=== PATIENT | female | born 1955 | race Caucasian/White ===

== ENCOUNTER 2017-05-21 08:56 | Outpatient (POV) | payer OTHER, SELFPAY | END 2017-05-21 15:19 | disposition home or self-care (01) | PROVIDERS: PCP Podiatrist; Visit Provider Podiatrist | DX: L30.9 Dermatitis, unspecified (principal); L85.3 Xerosis cutis; M77.42 Metatarsalgia, left foot; M77.41 Metatarsalgia, right foot; B35.1 Tinea unguium; L84 Corns and callosities | CPT/HCPCS: 99213 ==

== ENCOUNTER → 2018-03-05 11:26 | Outpatient (CLI) | payer SELFPAY ==
[2018-03-05 12:57] LABS: Alanine Aminotransferase 20 U/L (12-78); Albumin Level 3.5 gm/dL (3.4-5.0); Albumin/Globulin Ratio 0.9 (1.1-1.8); Alkaline Phosphatase 175 U/L (46-116); Anion Gap 13.4 mEq/L (5-15); Aspartate Amino Transferase 14 U/L (15-37); Bilirubin,Total 0.4 mg/dL (0.2-1.0); Blood Urea Nitrogen 20 mg/dL (7-18); Calcium 9.4 mg/dL (8.5-10.1); Carbon Dioxide 28 mmol/L (21.0-32.0); Chloride 110 mmol/L (98-107); Chol/HDL Ratio 3.5 (1-3.5); Cholesterol 144 mg/dL (140-200); Creatinine,Serum 0.79 mg/dL (0.55-1.02); Estimated Glomerular Filt Rate 74 ml/min (>60); GFR (African American) 89 ML/MIN (>60); Globulin 3.8 gm/dl (1.3-3.2); Glucose 100 mg/dL (74-106); HDL Cholesterol 41 mg/dL (29-89); LDL Cholesterol 83 mg/dL (0-130); Potassium 4.4 mmoL/L (3.5-5.1); Sodium 147 mmol/L (136-145); Thyroid Stimulating Hormone 0.87 uIU/ml (0.358-3.740); Total Protein,Serum 7.3 gm/dL (6.4-8.2); Triglycerides 98 mg/dL (30-200); VLDL Cholesterol 20 mg/dL (0-40)
== END ==
PROVIDERS: PCP Internal Medicine Adolescent Medicine; Visit Provider Internal Medicine Adolescent Medicine
DX: E78.5 Hyperlipidemia, unspecified (principal); E03.9 Hypothyroidism, unspecified
CPT/HCPCS: 36415; 80053; 80061; 84443

== ENCOUNTER → 2019-01-05 13:45 | Outpatient (CLI) | payer SELFPAY | PROVIDERS: PCP Internal Medicine Adolescent Medicine; Visit Provider Internal Medicine Adolescent Medicine | DX: G47.30 Sleep apnea, unspecified (principal); R40.0 Somnolence; R06.83 Snoring | CPT/HCPCS: 95806 ==

== ENCOUNTER → 2019-02-05 11:50 | Outpatient (CLI) | payer SELFPAY ==
[2019-02-05 14:57] LABS: Free T4 (Free Thyroxine) 1.21 ng/dl (0.76-1.46); Thyroid Stimulating Hormone 0.07 uIU/ml (0.358-3.740)
[2019-02-06 18:06] LABS: Thyroid Peroxidase Antibodies 33 IU/mL (0-34)
[2019-02-08 16:35] LABS: Thyroid Stimulating Immunoglob <0.10 IU/L (0.00-0.55)
== END ==
PROVIDERS: Visit Provider Otolaryngology
DX: E03.9 Hypothyroidism, unspecified (principal)
CPT/HCPCS: 36415; 84439; 84443; 84445; 86376

== ENCOUNTER → 2019-07-31 12:56 | Outpatient (CLI) | payer SELFPAY ==
[2019-07-31 14:59] LABS: Free T4 (Free Thyroxine) 1.19 ng/dl (0.76-1.46); Thyroid Stimulating Hormone 2.75 uIU/ml (0.358-3.740)
== END ==
PROVIDERS: Visit Provider Otolaryngology
DX: E03.9 Hypothyroidism, unspecified (principal)
CPT/HCPCS: 36415; 84439; 84443

== ENCOUNTER → 2019-12-30 07:57 | Outpatient (CLI) | payer MEDICARE, OTHER, SELFPAY ==
--- NOTE | 2019-12-30 08:04 | XR_ITS ---
PROCEDURE: XR DEXA AXIAL SKELETON CLINICAL HISTORY: RT MEDICAL EXAM COMPARISON: No exams were available for comparison FINDINGS: The right hip BMD is 0.653 with a t-score of -1.8. The left hip BMD is 0.687 with a t-score of -1.5. The lumbar spine BMD is 0.991 with a t-score of -0.5. IMPRESSION: This patient is considered osteopenic according to the World Health Organization criteria. Bone density is between 10 and 25 percent below young normal . Fracture risk is moderate. Treatment is advised. Based on these results of follow-up exam is recommended in 2 years Dictated by: Tung Govea MD 12/30/2019 21:14 Electronically signed by Tung Govea MD in [place] 12/31/2019 14:14
--- NOTE | 2019-12-30 08:08 | CT_ITS ---
PROCEDURE: CT LUNG SCREENING CLINICAL INDICATION: HX OF NICOTINE DEPENDENCE Fifty pack-year smoking history, asymptomatic for lung cancer COMPARISON: [facility] CT CHEST W/WO CONTRAST from 12/27/2015 TECHNIQUE: The exam was performed on a GE Light Speed [address] scanner using 2.90 mGy CTDI. A low dose helical CT CHEST was performed on a multi-detector scanner. All CT scans at the facility use one or more dose reduction, viz: automated exposure control, ma/kV adjustment per patient size (including targeted exams where dose is matched to indication, i.e. head), or iterative reconstruction technique. The LDCT was performed in a facility that meets the criteria for the screening program. Data regarding this exam was submitted to ACR which is an approved registry. The order for this exam indicates that it came as a result of a lung cancer screening counseling shard decision-making visit that included all the elements required of such a visit including smoking cessation. The radiologist interpreting this exam meets the CMS criteria for the LDCT lung cancer screening program. The exam is reported using the Lung-RADS classification scale and reported to the ACR registry. NOTE: This study was performed for the specific purposes of lung cancer screening and is not an alternative to diagnostic chest CT. RADIATION DOSE: CTDI vol(CT dose Index-volume) = 2.90mG DLP (Dose Length Product) = 96.64 mGcm Lung Rads Category: FINDINGS: COPD. Old granulomatous disease. Atelectatic changes are present in the lingula. No new nodules apparent. OTHER FINDINGS: Coronary artery calcification IMPRESSION: Lung rads category 2, benign Recommend annual LD CT Dictated by: Tung Govea MD 01/03/2020 12:48 Electronically signed by Tung Govea MD in [place] 01/03/2020 12:48
--- NOTE | 2019-12-30 08:10 | MM_ITS ---
PROCEDURE: MM DIG SCREENING MAMM BI W/CAD DIGITAL BREAST TOMOSYNTHESIS INCLUDED Patient Age:64Y CLINICAL INDICATION: Screening 64-year-old. No Hormones But No New Complaints. Or Surgical Excisional 1990 Biopsy Left Breast-Benign 1990. family History Maternal Grandmother Breast Cancer COMPARISON: [facility] DIGITAL MAMM-SCREEN BILATERAL from 04/18/2010 [facility] DIGITAL MAMM-SCREEN BILATERAL from 05/10/2011 [facility] DIGITAL MAMM-SCREEN BILATERAL from 08/28/2012 [facility] DIG MAMM-SCREEN KIM from 09/10/2013 [facility] DIG MAMM-DX KIM from 03/18/2014 [facility] DIG MAMM-SCREEN KIM from 06/08/2015 [facility] DIG MAMM-SCREEN KIM W/CAD from 09/19/2016 TECHNIQUE: Standard CC and MLO images were obtained. R2 CAD reviewed. Bilateral digital breast tomosynthesis included. FINDINGS: Minimal residual fibroglandular elements with moderate diffuse fatty involution through out. Residual fibroglandular Elements most evident towards anterior breast and upper outer quadrant. RIGHT BREAST: Fairly stable Minor Fibroglandular Elements Superior Right Breast Unchanged. However on final review note tiny ovoid 3.5 mm area of density best seen on the CC standard view at central breast likely towards the 11-12 o'clock position. Suspect probable tiny cyst which is has become apparent (this small density subsequent best seen on cc tomosynthesis slice 30-32; and MLO tomosynthesis slice 41/42) Suggest cc and 90 spot view here along with ultrasound of this tiny area to be cautious in this patient well known to us. Other areas appear stable of for example stable small Intramammary Node Posterior Margin Of Mlo Image Of Again Noted-stable LEFT BREAST: Stable No New Findings Of Significance. Minor Asymmetry Lateral Left Breast possibly Reflects Minor Scarring Bilateral Follow-up 1 Year Recommended. IMPRESSION: RIGHT BREAST. . Suggest ultrasound and spot views to further evaluate Subtle small 3.5 mm ovoid area at 11-12 o'clock position central breast. Possible small cyst -LEFT BREAST. No new areas of concern. Follow-up left mammogram 1 year BI-RAD Category: 0 Need Additional Imaging Evaluation FOLLOW-UP: IMM Immediate Follow-up Recommended Spot views and ultrasound right breast (A letter has been sent to the patient regarding results of the study.) Dictated by: Mick Britt MD 01/04/2020 12:16 Electronically signed by Mick Britt MD in [place] 01/04/2020 12:16
== END ==
PROVIDERS: PCP Internal Medicine Adolescent Medicine; Visit Provider Internal Medicine Adolescent Medicine
DX: Z78.0 Asymptomatic menopausal state (principal); Z87.891 Personal history of nicotine dependence; Z12.31 Encounter for screening mammogram for malignant neoplasm of breast
CPT/HCPCS: 77063; 77067; 77080

== ENCOUNTER → 2020-01-14 13:56 | Outpatient (CLI) | payer MEDICARE, OTHER, SELFPAY ==
--- NOTE | 2020-01-14 14:08 | MM_ITS ---
PROCEDURE: MM DIG MAMM DX UNILAT RT CAD Digital Breast Tomosynthesis Included CLINICAL INDICATION: ABN MAMM OF R BREAST COMPARISON: [facility] DIG MAMM-DX KIM from 03/18/2014 [facility] DIG MAMM-SCREEN KIM from 06/08/2015 [facility] DIG MAMM-SCREEN KIM W/CAD from 09/19/2016 MM DIG SCREENING MAMM BI W/CAD from 12/30/2019 US BREAST RT COMPLETE from 01/14/2020 TECHNIQUE: Spot-compression views along with right breast ultrasound FINDINGS: There is a well-circumscribed 3 mm nodule in the lateral aspect of the right breast at the 9 o'clock region. The margins appear well circumscribed and smooth. This may been present dating back to 03/18/2014 but slightly larger. Right breast ultrasound: No cyst or solid suspicious lesions evident. There is a 4 x 2 mm hyperechoic focus at 11 o'clock and may be due to small lipoma. IMPRESSION: Probably benign findings. Recommend six-month mammographic and sonographic follow-up BI-RAD Category: 3 Probably Benign Finding Short Term Follow-up FOLLOW-UP: 6M 6Month Follow-up (A letter has been sent to the patient regarding results of the study.) Dictated by: Tung Govea MD 01/15/2020 18:42 Electronically signed by Tung Govea MD in [place] 01/15/2020 18:42
== END ==
PROVIDERS: PCP Internal Medicine Adolescent Medicine; Visit Provider Internal Medicine Adolescent Medicine
DX: R92.8 Other abnormal and inconclusive findings on diagnostic imaging of breast (principal)
CPT/HCPCS: 76641; 77061; 77065; G0279

== ENCOUNTER → 2020-03-23 11:55 | Outpatient (CLI) | payer MEDICARE, OTHER, SELFPAY ==
[2020-03-23 12:52] LABS: Basophils # 0.1 K/mm3 (0-0.2); Basophils % 0.7 % (0.1-2.0); Eosinophils # 0.2 K/mm3 (0.0-0.4); Eosinophils % 2.4 % (0.1-12.0); Hematocrit 51.8 % (37.0-47.0); Hemoglobin 16.4 g/dL (12.2-16.2); Lymphocytes # 2.2 K/mm3 (0.7-4.5); Lymphocytes % 26.8 % (10-50); Mean Corpuscular HGB Conc 31.6 g/dL (31.8-35.4); Mean Corpuscular Hemoglobin 29.2 pg (27.0-31.2); Mean Corpuscular Volume 92.3 fl (81-99); Mean Platelet Volume 7.6 fl (7.4-10.4); Monocytes # 0.4 K/mm3 (0.1-1.0); Monocytes % 4.9 % (1.7-9.3); Neutrophils # 5.4 K/mm3 (1.8-7.8); Neutrophils % 65.2 % (37.0-80.0); Platelet Count 245 K/mm3 (142-424); Red Blood Count 5.61 M/mm3 (4.20-5.40); Red Cell Distribution Width 14.9 % (11.5-17.5); White Blood Count 8.2 K/mm3 (4.8-10.8)
[2020-03-23 15:16] LABS: Chloride 108 mmol/L (98-107); Potassium 4.6 mmoL/L (3.5-5.1); Sodium 143 mmol/L (136-145)
[2020-03-23 15:19] LABS: Alanine Aminotransferase 15 U/L (12-78); Albumin/Globulin Ratio 1.4 (1.1-1.8); Alkaline Phosphatase 137 U/L (38-126); Anion Gap 11.6 mEq/L (5-15); Aspartate Amino Transferase 26 U/L (14-36); Bilirubin,Total 0.5 mg/dl (0.2-1.3); Blood Urea Nitrogen 20 mg/dl (7-17); Calcium 9.4 mg/dl (8.4-10.2); Carbon Dioxide 28 mmol/L (22.0-30.0); Estimated Glomerular Filt Rate 84 ml/min (>60); GFR (African American) 102 ML/MIN (>60); Globulin 2.8 g/dL (1.3-3.2); Glucose 110 mg/dl (74-100); Total Protein,Serum 6.8 g/dl (6.3-8.2)
[2020-03-23 15:39] LABS: 25-OH Vitamin D, Total 34.4 ng/mL (30-100)
[2020-03-23 15:50] LABS: Thyroid Stimulating Hormone 0.21 uIU/mL (0.465-4.68)
== END ==
PROVIDERS: Visit Provider Internal Medicine Adolescent Medicine
DX: E03.9 Hypothyroidism, unspecified (principal); M85.89 Other specified disorders of bone density and structure, multiple sites
CPT/HCPCS: 36415; 80053; 82306; 84443; 85025

== ENCOUNTER → 2020-07-26 13:10 | Outpatient (CLI) | payer MEDICARE, OTHER, SELFPAY ==
--- NOTE | 2020-07-26 13:36 | MM_ITS ---
PROCEDURE: MM DIG MAMM DX UNILAT RT CAD Digital Breast Tomosynthesis Included CLINICAL INDICATION: ABN MAMM COMPARISON: MG [facility] DIG MAMM-SCREEN KIM W/CAD from 09/19/2016 MG MM DIG SCREENING MAMM BI W/CAD from 12/30/2019 MG MM DIG MAMM DX UNILAT RT CAD from 01/14/2020 TECHNIQUE: Standard CC and MLO images and 3D Tomosynthesis was obtained. R2 CAD reviewed. FINDINGS: The small well-circumscribed nodular lesion is stable and unchanged from the previous exam in certainly has benign features. No other abnormality is noted. Recommend the patient return to normal lyearly screening. IMPRESSION: Stable tiny benign-appearing nodular density BI-RAD Category: 2 Benign Finding(s) FOLLOW-UP: 6M 6Month Follow-up to return to normal yearly screening schedule (A letter has been sent to the patient regarding results of the study.) Dictated by: Dr. Yusef Naik MD 08/02/2020 13:12 Dr. Yusef Naik MD in [place] 08/02/2020 13:12
--- NOTE | 2020-07-26 13:37 | US_ITS ---
PROCEDURE: US BREAST RT COMPLETE CLINICAL INDICATION: ABN MAMM COMPARISON: US US BREAST RT COMPLETE from 01/14/2020 FINDINGS: Again noted is a small hypoechoic nodular lesion 11 o'clock position near the nipple with smooth borders and this is unchanged in size and appearance from the previous ultrasound exam and likely is a small lipoma. There is a normal appearing node in the axilla noted. No suspicious solid lesion is noted. IMPRESSION: Stable small hyperechoic nodular lesion and I feel no additional evaluation is indicated Dictated by: Dr. Yusef Naik MD 08/04/2020 07:50 Dr. Yusef Naik MD in [place] 08/04/2020 07:50
[2020-07-26 14:16] LABS: Free T4 (Free Thyroxine) 1.08 ng/dl (0.78-2.19)
[2020-07-26 14:30] LABS: Thyroid Stimulating Hormone 1.91 uIU/mL (0.465-4.68)
== END ==
PROVIDERS: Otolaryngology; PCP Internal Medicine Adolescent Medicine; Visit Provider Internal Medicine Adolescent Medicine
DX: E03.9 Hypothyroidism, unspecified (principal); R92.8 Other abnormal and inconclusive findings on diagnostic imaging of breast
CPT/HCPCS: 36415; 76641; 77061; 77065; 84439; 84443; G0279

== ENCOUNTER → 2020-09-02 12:50 | Outpatient (CLI) | payer MEDICARE, OTHER, SELFPAY ==
[2020-09-02 14:17] LABS: Chloride 111 mmol/L (98-107); Sodium 143 mmol/L (136-145)
[2020-09-02 14:18] LABS: Potassium 4.5 mmoL/L (3.5-5.1)
[2020-09-02 14:20] LABS: Alanine Aminotransferase 26 U/L (12-78); Albumin Level 4.2 g/dl (3.5-5.0); Albumin/Globulin Ratio 1.3 (1.1-1.8); Alkaline Phosphatase 154 U/L (38-126); Anion Gap 12.5 mEq/L (5-15); Aspartate Amino Transferase 33 U/L (14-36); Bilirubin,Total 0.7 mg/dl (0.2-1.3); Blood Urea Nitrogen 20 mg/dl (7-17); Carbon Dioxide 24 mmol/L (22.0-30.0); Cholesterol 174 mg/dl (140-200); Estimated Glomerular Filt Rate 84 ml/min (>60); GFR (African American) 102 ML/MIN (>60); Globulin 3.3 g/dL (1.3-3.2); Total Protein,Serum 7.5 g/dl (6.3-8.2); Triglycerides 148 mg/dl (30-150); VLDL Cholesterol 30 mg/dL (0-40)
[2020-09-02 14:21] LABS: Calcium 9.7 mg/dl (8.4-10.2); Chol/HDL Ratio 4.8 (1-3.5); Glucose 115 mg/dl (74-100); HDL Cholesterol 36 mg/dl (40-60)
[2020-09-02 14:31] LABS: Direct LDL Cholesterol 105.69 mg/dL (100-129)
== END ==
PROVIDERS: Visit Provider Internal Medicine Adolescent Medicine
DX: E78.5 Hyperlipidemia, unspecified (principal); I10 Essential (primary) hypertension
CPT/HCPCS: 36415; 80053; 80061

== ENCOUNTER → 2021-03-03 09:31 | Outpatient (CLI) | payer MEDICARE, OTHER, SELFPAY ==
[2021-03-03 10:03] LABS: Basophils # 0.1 K/mm3 (0-0.2); Basophils % 0.5 % (0.1-2.0); Eosinophils # 0.3 K/mm3 (0.0-0.4); Eosinophils % 2.5 % (0.1-12.0); Hematocrit 48.9 % (37.0-47.0); Hemoglobin 15.9 g/dL (12.2-16.2); Lymphocytes # 2.5 K/mm3 (0.7-4.5); Lymphocytes % 25.2 % (10-50); Mean Corpuscular HGB Conc 32.4 g/dL (31.8-35.4); Mean Corpuscular Hemoglobin 29.9 pg (27.0-31.2); Mean Corpuscular Volume 92.2 fl (81-99); Mean Platelet Volume 7.4 fl (7.4-10.4); Monocytes # 0.4 K/mm3 (0.1-1.0); Monocytes % 4.4 % (1.7-9.3); Neutrophils # 6.6 K/mm3 (1.8-7.8); Neutrophils % 67.4 % (37.0-80.0); Platelet Count 265 K/mm3 (142-424); Red Blood Count 5.31 M/mm3 (4.20-5.40); Red Cell Distribution Width 14.9 % (11.5-17.5); White Blood Count 9.8 K/mm3 (4.8-10.8)
[2021-03-03 10:44] LABS: Chloride 110 mmol/L (98-107); Hemoglobin A1C 6.1 % (4.0-6.0); Potassium 4.4 mmoL/L (3.5-5.1); Sodium 142 mmol/L (136-145)
[2021-03-03 10:47] LABS: Alanine Aminotransferase 19 U/L (12-78); Albumin Level 3.8 g/dl (3.5-5.0); Albumin/Globulin Ratio 1.3 (1.1-1.8); Alkaline Phosphatase 134 U/L (38-126); Anion Gap 13.4 mEq/L (5-15); Aspartate Amino Transferase 25 U/L (14-36); Bilirubin,Total 0.6 mg/dl (0.2-1.3); Blood Urea Nitrogen 17 mg/dl (7-17); Carbon Dioxide 23 mmol/L (22.0-30.0); Estimated Glomerular Filt Rate 100 ml/min (>60); GFR (African American) 121 ML/MIN (>60); Globulin 2.9 g/dL (1.3-3.2); Total Protein,Serum 6.7 g/dl (6.3-8.2)
[2021-03-03 10:48] LABS: Calcium 9.2 mg/dl (8.4-10.2); Glucose 104 mg/dl (74-100)
[2021-03-03 11:03] LABS: 25-OH Vitamin D, Total 36.8 ng/mL (30-100); Triiodothryronine (T3) Uptake 30 % (23.5-40.5)
[2021-03-03 11:05] LABS: Free Thyroxine Index 3.3 ug/dL (5.93-13.13); T4 (Thyroxine) 10.9 ug/dl (5.53-11.0)
[2021-03-03 11:52] LABS: Vitamin B12 258 pg/mL (239-931)
== END ==
PROVIDERS: Visit Provider Internal Medicine Adolescent Medicine
DX: E03.9 Hypothyroidism, unspecified (principal); G62.9 Polyneuropathy, unspecified; E66.3 Overweight; Z68.31 Body mass index [BMI] 31.0-31.9, adult; Z79.899 Other long term (current) drug therapy
CPT/HCPCS: 36415; 80053; 82306; 82607; 83036; 84436; 84443; 84479; 85025

== ENCOUNTER 2021-03-29 17:03 | Inpatient (IN) | payer MEDICARE, OTHER, SELFPAY ==
[2021-03-29 17:04] VITALS: BP 135/59; PULSE 99; RESP 18; TEMP 37.4; O2SAT 93; BMI 31.7
[2021-03-29 17:14] VITALS: BMI 31.7
--- NOTE | 2021-03-29 17:14 | XR_ITS ---
PROCEDURE INFORMATION: Exam: XR Chest Exam date and time: 03/29/2021 5:14 PM Age: 65 years old Clinical indication: Shortness of breath and other: Facial swelling; Patient HX: Facial swelling, shortness of breath. Smoker. No chest surgeries. ; Additional info: SOA TECHNIQUE: Imaging protocol: XR of the chest. Views: 2 views. COMPARISON: CR CXR CHEST(2 VIEWS-NOT PORTABLE) 04/11/2017 3:56 PM FINDINGS: Lungs: Unchanged calcified nodule on the right. Mild right basilar atelectasis. The Lungs are otherwise clear. Pleural spaces: Unremarkable. No pleural effusion. No pneumothorax. Heart/Mediastinum: Unremarkable. No cardiomegaly. Bones/joints: Unremarkable. IMPRESSION: No acute disease
[2021-03-29 18:11] LABS: Lactic Acid 1.4 mmol/L (0.7-2.1)
[2021-03-29 18:12] LABS: Alanine Aminotransferase 22 U/L (12-78); Albumin Level 3.7 g/dl (3.5-5.0); Albumin/Globulin Ratio 1.1 (1.1-1.8); Alkaline Phosphatase 125 U/L (38-126); Anion Gap 10.6 mEq/L (5-15); Aspartate Amino Transferase 25 U/L (14-36); Basophils # 0.1 K/mm3 (0-0.2); Basophils % 0.4 % (0.1-2.0); Bilirubin,Total 1.3 mg/dl (0.2-1.3); Blood Urea Nitrogen 19 mg/dl (7-17); Calcium 8.6 mg/dl (8.4-10.2); Carbon Dioxide 26 mmol/L (22.0-30.0); Chloride 103 mmol/L (98-107); Creatinine Clearance Estimated 73 mL/min (50-200); Estimated Glomerular Filt Rate 72 ml/min (>60); GFR (African American) 87 ML/MIN (>60); Globulin 3.4 g/dL (1.3-3.2); Glucose 131 mg/dl (74-100); Hematocrit 46.5 % (37.0-47.0); Hemoglobin 15.3 g/dL (12.2-16.2); Lymphocytes # 1.7 K/mm3 (0.7-4.5); Lymphocytes % 6.9 % (10-50); Mean Corpuscular HGB Conc 32.9 g/dL (31.8-35.4); Mean Corpuscular Hemoglobin 30.1 pg (27.0-31.2); Mean Corpuscular Volume 91.4 fl (81-99); Mean Platelet Volume 8.5 fl (7.4-10.4); Monocytes # 1.2 K/mm3 (0.1-1.0); Monocytes % 4.9 % (1.7-9.3); Neutrophils % 87.8 % (37.0-80.0); Platelet Count 234 K/mm3 (142-424); Potassium 3.6 mmoL/L (3.5-5.1); Red Blood Count 5.09 M/mm3 (4.20-5.40); Red Cell Distribution Width 15.3 % (11.5-17.5); Sodium 136 mmol/L (136-145); Total Protein,Serum 7.1 g/dl (6.3-8.2); White Blood Count 23.9 K/mm3 (4.8-10.8)
--- NOTE | 2021-03-29 18:17 | HMH.EDGENADL ---
ED Disposition Clinical Impression: Facial cellulitis Disposition: Admitted as Observation Condition on Discharge: Fair Instructions: DI for Skin Abscess Referrals: Brien Rojas MD [Primary Care Provider] - - Critical Care Critical Care Time: No Attestation: On 03/29/21, the high probability of a clinically significant, sudden or life threatening deterioration of the following system(s) required my full and direct attention, intervention and personal management. The time I documented below is in addition to time spent performing reported procedures but includes the following listed in this critical care notation. Medical Decision Making - Hoang Inquiry Pt receiving controlled substance: No Vital Signs: 03/29/21 17:04 03/29/21 18:38 Temperature 99.4 F Temperature Source Oral Pulse Rate 99 H Pulse Rate [Right Radial] 99 H Respiratory Rate 18 20 Blood Pressure 98/41 L Blood Pressure [Right Arm] 135/59 L Blood Pressure Mean [Right Arm] 84 Blood Pressure Source [Right Arm] Manual Cuff/ Doppler Blood Pressure Position [Right Arm] Sitting 02 Sat by Pulse Oximetry 93 L 93 L Oxygen Delivery Method Room Air - Lab Data Lab Results 03/29/21 17:43: WBC 23.9 H*, RBC 5.09, Hgb 15.3, Hct 46.5, MCV 91.4, MCH 30.1, MCHC 32.9, RDW 15.3, Plt Count 234, MPV 8.5, Neut % (Auto) 87.8 H, Lymph % (Auto) 6.9 L, [place] % (Auto) 4.9, Eos % (Auto) 0.0 L, Baso % (Auto) 0.4, Neut # (Auto) 21.0 H, Lymph # (Auto) 1.7, [place] # (Auto) 1.2 H, Eos # (Auto) 0.0, Baso # (Auto) 0.1, Total Counted 100, Neutrophils % (Manual) 91 H, Lymphocytes % (Manual) 4 L, Monocytes % (Manual) 5, Platelet Estimate Normal 03/29/21 17:43: Sodium 136, Potassium 3.6, Chloride 103, Carbon Dioxide 26, Anion Gap 10.6, BUN 19 H, Creatinine 0.80, Estimated Creat Clear 73, Estimated GFR 72, Est GFR ( Amer) 87, Glucose 131 H, Calcium 8.6, Total Bilirubin 1.3, AST 25, ALT 22, Alkaline Phosphatase 125, Total Protein 7.1, Albumin 3.7, Globulin 3.4 H, Albumin/Globulin Ratio 1.1 03/29/21 17:43: Lactate 1.4 03/29/21 18:30: ABG pH 7.53 H, ABG pCO2 28.6 L, ABG pO2 59.8 L, ABG HCO3 23.5, ABG Total CO2 24.4, ABG O2 Saturation 93, ABG Base Excess 0.9 03/29/21 18:40: SARS-CoV-2 (PCR) Not detected, Influenza A Untype (PCR) Not detected, Influenza Type B (PCR) Not detected Result diagrams: 03/29/21 17:43 03/29/21 17:43 Orders (Tests/Meds): ED MEDICATIONS Generic Name Dose Route Start Last Admin Trade Name Freq PRN Reason Stop Dose Admin Vancomycin HCl 1,500 mg/ 250 mls @ 125 mls/hr 03/29/21 18:44 03/29/21 19:33 Sodium Chloride IV 03/29/21 20:43 125 mls/hr ONCE ONE Administration Vancomycin HCl 1,000 mg/ 250 mls @ 125 mls/hr 03/29/21 18:45 03/29/21 19:41 Sodium Chloride IV 04/12/21 18:44 Not Given Q18H SARAH Clindamycin Phosphate 900 mg/ 106 mls @ 100 mls/hr 03/29/21 20:15 Sodium Chloride IV 04/12/21 20:14 Q8H SARAH Miscellaneous 1 each 03/29/21 18:45 03/29/21 19:34 Vancomycin Consult Request * 04/28/21 18:44 1 each CONSULT PHARMACY SARAH Administration Discontinued Medications Generic Name Dose Route Start Last Admin Trade Name Freq PRN Reason Stop Dose Admin Dexamethasone Sodium Phosphate 8 mg 03/29/21 20:12 Dexamethasone 4mg/Ml 5ml Mdv IV 03/29/21 20:13 ONCE ONE Iopamidol 75 ml 03/29/21 19:52 03/29/21 19:53 Iopamidol-370 (76%);100ml Bottle IV 03/29/21 19:53 75 ml ONCE ONE Administration Sodium Chloride 10 ml 03/29/21 19:52 03/29/21 19:53 Sodium Chloride 0.9% 10ml Syr (Rad Only) IV 03/29/21 19:53 10 ml ONCE ONE Administration ORDERS Category Date Time Status Blood Culture Stat Micro 03/29/21 17:43 Received ABG [Arterial Blood Gas] Stat RT 03/29/21 18:30 Results - Radiology Data #1 Image(s): Chest Image Reviewed: Yes I reviewed the patient's radiology image, Yes I have reviewed radiologist's interpretation PROCEDURE INFORMATION: Exam: XR Chest Exam
[2021-03-29 18:24] LABS: MANUAL DIFFERENTIAL MANUAL DIFFERENTIAL (MANUAL DIFF)
--- NOTE | 2021-03-29 18:28 | CT_ITS ---
PROCEDURE INFORMATION: Exam: CT Head Without Contrast Exam date and time: 03/29/2021 6:28 PM Age: 65 years old Clinical indication: Altered mental status/memory loss; Confusion or disorientation; Additional info: AMS TECHNIQUE: Imaging protocol: Computed tomography of the head without contrast. 3D rendering (Not supervised by radiologist): MIP and/or 3D reconstructed images were created by the technologist. Radiation optimization: All CT scans at this facility use at least one of these dose optimization techniques: automated exposure control; mA and/or kV adjustment per patient size (includes targeted exams where dose is matched to clinical indication); or iterative reconstruction. COMPARISON: No relevant prior studies available. FINDINGS: Brain: Normal. No hemorrhage. Unremarkable white matter for age. No mass effect. Cerebral ventricles: No ventriculomegaly. Paranasal sinuses: Visualized sinuses are unremarkable. No fluid levels. Mastoid air cells: Visualized mastoid air cells are well aerated. Orbital cavity: Preseptal periorbital edema bilaterally. Please correlate clinically. Bones/joints: Unremarkable. No acute fracture. Soft tissues: Unremarkable. IMPRESSION: No acute intracranial pathology
--- NOTE | 2021-03-29 18:29 | CT_ITS ---
PROCEDURE INFORMATION: Exam: CT Maxillofacial With Contrast Exam date and time: 03/29/2021 6:29 PM Age: 65 years old Clinical indication: Mass, lump, or swelling; Other: Entire face, worse around eyes; Additional info: Facial swelling and redness, R/O abscess TECHNIQUE: Imaging protocol: Computed tomography images of the face with intravenous contrast. Radiation optimization: All CT scans at this facility use at least one of these dose optimization techniques: automated exposure control; mA and/or kV adjustment per patient size (includes targeted exams where dose is matched to clinical indication); or iterative reconstruction. Contrast material: ISOVUE; Contrast volume: 75 ml; Contrast route: IV; COMPARISON: CT HEAD/BRAIN WO CON 03/29/2021 7:39 PM FINDINGS: Orbital cavity: Globes are intact. Intra and extraconal fat is clear. Extraocular muscles are symmetric. Bones/joints: No acute fracture. Paranasal sinuses: Mild mucosal thickening in anterior ethmoid air cells. Soft tissues: Moderate bilateral preseptal periorbital edema is seen. No drainable fluid collection. IMPRESSION: Moderate bilateral preseptal periorbital edema. No drainable fluid collection.
[2021-03-29 18:38] VITALS: BP 98/41; PULSE 99; RESP 20; O2SAT 93
--- NOTE | 2021-03-29 18:38 | PC.NURSE ---
notified rad and RT of orders on pt
--- NOTE | 2021-03-29 18:43 | PC.NURSE ---
spoke with Maeve at [facility] for vancomycin consult states for initial dose Vancomycin 1500 mg IV once and then Vancomycin 1000 mg q18H per IV
[2021-03-29 18:45] LABS: Coronavirus 19, PCR Not Detected (NotDetected); Influenza A, PCR Not Detected (NotDetected); Influenza B, PCR Not Detected (NotDetected)
[2021-03-29 18:48] LABS: Lymphocytes % 4 % (10-50); Monocytes % 5 % (2-9); Neutrophils % 91 % (42-76); Platelet Estimate Normal; Total Cells Counted 100
[2021-03-29 18:52] LABS: ABG Base Excess 0.9 mmol/L (-2.4-2.3); ABG HCO3 23.5 mmhg (22.0-26.0); ABG Oxygen Saturation 93 % (90-100); ABG PCO2 28.6 mmhg (35.0-45.0); ABG PH 7.53 mmol/L (7.35-7.45); ABG PO2 59.8 mmhg (80-100); ABG TCO2 24.4 mmhg (23-27)
[2021-03-29 18:53] LABS: Allen's Test Acceptable; Source Left Radial
--- NOTE | 2021-03-29 20:18 | PC.NURSE ---
spoke with dr torres. notified house of admission
[2021-03-29 21:30] VITALS: BMI 31.7
[2021-03-29 21:45] VITALS: BP 98/41; PULSE 99; RESP 16; TEMP 37.3; O2SAT 98
[2021-03-29 22:00] VITALS: BP 119/56; PULSE 82; RESP 16; TEMP 37; O2SAT 95
[2021-03-29 22:30] VITALS: BP 114/54; PULSE 84; RESP 16; TEMP 36.8; O2SAT 91
[2021-03-30] VITALS (7 sets, daily range): BP systolic 112–120; BP diastolic 48–70; PULSE 72–88; RESP 12–18; TEMP 36.6–36.8; O2SAT 90–97; BMI 31.7
--- NOTE | 2021-03-30 05:00 | PC.NURSE ---
Shift summary. pt has slept well since arriving to floor. No complaints voiced to staff. VSS. CB in reach. Will continue to monitor.
[2021-03-30 07:34] LABS: Basophils # 0.1 K/mm3 (0-0.2); Basophils % 0.2 % (0.1-2.0); Eosinophils # 0.1 K/mm3 (0.0-0.4); Eosinophils % 0.3 % (0.1-12.0); Hematocrit 45.9 % (37.0-47.0); Lymphocytes # 1.5 K/mm3 (0.7-4.5); Lymphocytes % 5.7 % (10-50); Mean Corpuscular HGB Conc 32.7 g/dL (31.8-35.4); Mean Corpuscular Hemoglobin 30.2 pg (27.0-31.2); Mean Corpuscular Volume 92.3 fl (81-99); Mean Platelet Volume 9.2 fl (7.4-10.4); Monocytes # 0.6 K/mm3 (0.1-1.0); Monocytes % 2.3 % (1.7-9.3); Neutrophils # 23.4 K/mm3 (1.8-7.8); Neutrophils % 91.4 % (37.0-80.0); Platelet Count 198 K/mm3 (142-424); Red Blood Count 4.98 M/mm3 (4.20-5.40); Red Cell Distribution Width 15.4 % (11.5-17.5); White Blood Count 25.5 K/mm3 (4.8-10.8)
[2021-03-30 07:41] LABS: MANUAL DIFFERENTIAL MANUAL DIFFERENTIAL (MANUAL DIFF)
--- NOTE | 2021-03-30 07:43 | HMH.PHAINT ---
MEDICATION RECONCILIATION COMPLETE USING SURESCRIPTS AND PREVIOUS DISCHARGE PAPERWORK
--- NOTE | 2021-03-30 07:50 | HMH.HP ---
*Admission Date: 03/29/21 *Chief complaint: Eye swelling and fever *History of present illness: 65-year-old white female who came to the emergency department yesterday afternoon with significant eye swelling around her lids bilaterally. She presented to the ER with her eyes essentially closed because of swelling. She had swelling and redness of exclusively the eyelids, both upper and lower, with no evidence of involvement of the mastoid processes, sinuses or actual globes. Given her significant swelling, febrile status and elevated white count she was admitted to hospital for IV antibiotics and steroid therapy because of the swelling. On further history taking this morning she noted that she has always used lubricating drops and about 2 or 3 days ago switched to a new brand called Systane-and although she experience no burning with this medicine then noticed the swelling yesterday. She denies any exposure to noxious vapors or fumes, and denies using contact lenses. [facility] History I have reviewed the patient's past medical history: Yes Medical History: Reports:: Chronic Obstructive Pulmonary Disease (COPD), Hyperlipidemia, Hypertension *Have you ever received a pneumonia vaccine?: Yes *Have you received a flu vaccine this season?: Yes Other Medical History: Reports: Cataracts Comment:: Osteoporosis Laterality Cases: Bilateral: Cataract Other Surgeries: Yes: Hysterectomy-Total - *Social History Last grade of school completed: GED Smoking Status: Current every day smoker Tobacco Type: cigarettes # Packs/Day (cigarettes): 1 Alcohol Intake: never *Occupational Status:: employed *Travel in the last 8 weeks: None Family Hx:: No significant family history Review of Systems - Review of Systems Review of systems:: pertinent systems reviewed and negative unless documented below Meds Home Medications Medication Instructions Recorded Confirmed Type Alendronate Sodium [Alendronate 35 mg PO WEEKLY 03/29/21 03/29/21 History 35mg Tablet] Atorvastatin Calcium [Lipitor 40mg 40 mg PO HS 03/29/21 03/29/21 History Tab] Fluticasone/Vilanterol [Breo 1 blister IN DAILY 03/29/21 03/30/21 History Ellipta 200-25 Mcg INH] Levothyroxine Sodium 125 mcg PO DAILY 03/29/21 03/29/21 History [Levothyroxine] PARoxetine HCL [Paroxetine HCl] 30 mg PO DAILY 03/29/21 03/29/21 History Allergies Allergy/AdvReac Type Severity Reaction Status Date / Time No Known Allergies Allergy Verified 08/01/20 13:52 Exam Vital signs and Labs for Last 24 Hours: Temp Pulse Resp BP Pulse Ox 98 F 80 16 120/70 97 03/30/21 03:59 03/30/21 03:59 03/30/21 03:59 03/30/21 03:59 03/30/21 03:59 Laboratory Results - last 24 hr 03/29/21 17:43: WBC 23.9 H*, RBC 5.09, Hgb 15.3, Hct 46.5, MCV 91.4, MCH 30.1, MCHC 32.9, RDW 15.3, Plt Count 234, MPV 8.5, Neut % (Auto) 87.8 H, Lymph % (Auto) 6.9 L, [place] % (Auto) 4.9, Eos % (Auto) 0.0 L, Baso % (Auto) 0.4, Neut # (Auto) 21.0 H, Lymph # (Auto) 1.7, [place] # (Auto) 1.2 H, Eos # (Auto) 0.0, Baso # (Auto) 0.1, Total Counted 100, Neutrophils % (Manual) 91 H, Lymphocytes % (Manual) 4 L, Monocytes % (Manual) 5, Platelet Estimate Normal 03/29/21 17:43: Sodium 136, Potassium 3.6, Chloride 103, Carbon Dioxide 26, Anion Gap 10.6, BUN 19 H, Creatinine 0.80, Estimated Creat Clear 73, Estimated GFR 72, Est GFR ( Amer) 87, Glucose 131 H, Calcium 8.6, Total Bilirubin 1.3, AST 25, ALT 22, Alkaline Phosphatase 125, Total Protein 7.1, Albumin 3.7, Globulin 3.4 H, Albumin/Globulin Ratio 1.1 03/29/21 17:43: Lactate 1.4 03/29/21 18:30: ABG pH 7.53 H, ABG pCO2 28.6 L, ABG pO2 59.8 L, ABG HCO3 23.5, ABG Total CO2 24.4, ABG O2 Saturation 93, ABG Base Excess 0.9 03/29/21 18:40: SARS-CoV-2 (PCR) Not detected, Influenza A Untype (PCR) Not detected, Influenza Type B (PCR) Not detected 03/30/21 07:02: WBC 25.5 H*, RBC 4.98, Hgb 15.0, Hct 45.9, MCV 92.3, MCH 30.2, MCHC 32.7, RDW 15.4, Plt Count 198, MPV 9.2, Neut % (Auto) 91.4 H, Lymph
--- NOTE | 2021-03-30 08:01 | HMH.PHACONS ---
- Pharmacy Consult Date: 03/30/21 Time: 08:01 Referring provider: JULIANNA Reason for Consult:: VANCOMYCIN DOSING CONSULT Allergies and ADEs:: Allergies Allergy/AdvReac Type Severity Reaction Status Date / Time No Known Allergies Allergy Verified 08/01/20 13:52 Home Medications:: Home Medications Medication Instructions Recorded Confirmed Type Alendronate Sodium [Alendronate 35 mg PO WEEKLY 03/29/21 03/29/21 History 35mg Tablet] Atorvastatin Calcium [Lipitor 40mg 40 mg PO HS 03/29/21 03/29/21 History Tab] Fluticasone/Vilanterol [Breo 1 blister IN DAILY 03/29/21 03/30/21 History Ellipta 200-25 Mcg INH] Levothyroxine Sodium 125 mcg PO DAILY 03/29/21 03/29/21 History [Levothyroxine] PARoxetine HCL [Paroxetine HCl] 30 mg PO DAILY 03/29/21 03/29/21 History Height: 1.63 m Weight: 84.368 kg Laboratory Results:: Laboratory Results - last 24 hr 03/29/21 17:43: WBC 23.9 H*, RBC 5.09, Hgb 15.3, Hct 46.5, MCV 91.4, MCH 30.1, MCHC 32.9, RDW 15.3, Plt Count 234, MPV 8.5, Neut % (Auto) 87.8 H, Lymph % (Auto) 6.9 L, [place] % (Auto) 4.9, Eos % (Auto) 0.0 L, Baso % (Auto) 0.4, Neut # (Auto) 21.0 H, Lymph # (Auto) 1.7, [place] # (Auto) 1.2 H, Eos # (Auto) 0.0, Baso # (Auto) 0.1, Total Counted 100, Neutrophils % (Manual) 91 H, Lymphocytes % (Manual) 4 L, Monocytes % (Manual) 5, Platelet Estimate Normal 03/29/21 17:43: Sodium 136, Potassium 3.6, Chloride 103, Carbon Dioxide 26, Anion Gap 10.6, BUN 19 H, Creatinine 0.80, Estimated Creat Clear 73, Estimated GFR 72, Est GFR ( Amer) 87, Glucose 131 H, Calcium 8.6, Total Bilirubin 1.3, AST 25, ALT 22, Alkaline Phosphatase 125, Total Protein 7.1, Albumin 3.7, Globulin 3.4 H, Albumin/Globulin Ratio 1.1 03/29/21 17:43: Lactate 1.4 03/29/21 18:30: ABG pH 7.53 H, ABG pCO2 28.6 L, ABG pO2 59.8 L, ABG HCO3 23.5, ABG Total CO2 24.4, ABG O2 Saturation 93, ABG Base Excess 0.9 03/29/21 18:40: SARS-CoV-2 (PCR) Not detected, Influenza A Untype (PCR) Not detected, Influenza Type B (PCR) Not detected 03/30/21 07:02: WBC 25.5 H*, RBC 4.98, Hgb 15.0, Hct 45.9, MCV 92.3, MCH 30.2, MCHC 32.7, RDW 15.4, Plt Count 198, MPV 9.2, Neut % (Auto) 91.4 H, Lymph % (Auto) 5.7 L, [place] % (Auto) 2.3, Eos % (Auto) 0.3, Baso % (Auto) 0.2, Neut # (Auto) 23.4 H, Lymph # (Auto) 1.5, [place] # (Auto) 0.6, Eos # (Auto) 0.1, Baso # (Auto) 0.1 Medical History: Reports:: Chronic Obstructive Pulmonary Disease (COPD), Hyperlipidemia, Hypertension Assessment and Plan (1) Facial cellulitis Status: Acute Category: Medical Code(s): L03.211 - Cellulitis of face - Assessment and plan all Dx Assessment and Plan for all problems:: Subjective and Objective Data: This is a 65 year old female patient with DOCUMENTED CELLULITIS. Measured serum creatinine (SCr) is 0.8 mg/dL. Given a height of 163 cm and a weight of 84.368 kg, estimated creatinine clearance is 73 mL/min (using the CrCl TBW body weight). The following targets were selected for dosing: - Desired AUC = 500 mcg*h/mL - Desired Cmax = 35 mcg/mL - Desired Cmin = 12.5 mcg/mL - Vd coefficient = 0.65 L/kg - Ke equation = CrCl*0.82735+0.0044 Calculations: Based on above, the following are calculated parameters for AUC-based vancomycin dosing in this patient: - Calculated Vd = 54.8392L - Calculated Ke = 0.065 inverse hours - Calculated half-life = 10.7 hours RECOMMENDED Prescribed Dosing: PATIENT RECEIVED A ONE-TIME LOADING DOSE OF VANCOMYCIN 1500 MG IV ONCE IN THE ED ON 03/29/21 AT 19:33 GIVE VANCOMYCIN IV 1250mg [id number] TO START 03/30/21 AT 13:30 Which is predicted to achieve the following parameters: - Estimated AUC = 467.6 mcg*h/mL - Estimated Cmax = 33.1 mcg/mL - Estimated Cmin = 11.7 mcg/mL
[2021-03-30 08:41] LABS: Lymphocytes % 14 % (10-50); Monocytes % 1 % (2-9); Neutrophils % 82 % (42-76); Platelet Estimate Normal; RBC Morphology Normal; Total Cells Counted 100
--- NOTE | 2021-03-30 20:20 | PC.NURSE ---
Addendum entered by Jose Daniel Ray RN 03/30/21 20:38: Pt has also had audible wheezes this shift. Recieved order for duonebs q 6 prn and faxed to pharm. Called RT and they are going to give pt a neb tx. Original Note: IV in R arm infiltrated with vanc that did infuse, slight redness, warm compress applied and pt stated it felt better. New IV started in another area in LAC. CB in reach. Eyes still edematous. Have given ice packs for swelling. Pt states it has helped some with discomfort. Eye gtts per mar given.
[2021-03-31 04:00] VITALS: BP 114/60; PULSE 72; RESP 16; TEMP 36.4; O2SAT 92
[2021-03-31 05:10] VITALS: BMI 32.1
--- NOTE | 2021-03-31 06:00 | PC.NURSE ---
PT [id number], was able to shower self this shift, remains on room air, redness and swelling still noted to bilateral eyes, has not complained of pain this shift
[2021-03-31 07:36] VITALS: BP 133/67; PULSE 80; RESP 18; TEMP 36.4; O2SAT 91
--- NOTE | 2021-03-31 07:41 | HMH.DCSUM ---
General - General Admission date:: 03/30/21 Discharge date: 03/31/21 HPI HPI: 65-year-old white female who came to the emergency department yesterday afternoon with significant eye swelling around her lids bilaterally. She presented to the ER with her eyes essentially closed because of swelling. She had swelling and redness of exclusively the eyelids, both upper and lower, with no evidence of involvement of the mastoid processes, sinuses or actual globes. Given her significant swelling, febrile status and elevated white count she was admitted to hospital for IV antibiotics and steroid therapy because of the swelling. On further history taking this morning she noted that she has always used lubricating drops and about 2 or 3 days ago switched to a new brand called Systane-and although she experience no burning with this medicine then noticed the swelling yesterday. She denies any exposure to noxious vapors or fumes, and denies using contact lenses. Hospital Course Hospital Course: Patient was admitted, CT scans were reviewed, labs reviewed. Patient started on IV antibiotics, IV steroids and the following morning on TobraDex drops. She had no further fevers, mental status cleared and her eyelid swelling improved nicely. Sclera remain clear and the rest of her exam unchanged. This morning she was much improved, vision was clear, was able to open her eyes and vastly improved manner. She will be discharged home on p.o. dexamethasone, TobraDex drops and I will see her on Saturday. Objective Vital signs: Temp Pulse Resp BP Pulse Ox 97.6 F 80 18 133/67 91 L 03/31/21 07:36 03/31/21 07:36 03/31/21 07:36 03/31/21 07:36 03/31/21 07:36 no acute distress - *Routine HEENT Exam Head: Present: normocephalic, other (Eyelid swelling vastly improved as noted and course.) Eye: Present: EOMI, PERRL ENT: Present: mucous membranes moist - *Routine Neck Exam Present: supple - *Routine Respiratory Exam Present: CTA bilaterally - *Routine Cardiovascular Exam Present: RRR - *Routine Abdominal Exam Present: soft, normoactive bowel sounds. Absent: tenderness - *Routine Extremities Exam Absent: cyanosis, clubbing, edema - *Routine Skin Exam Present: warm. Absent: rash - Detailed Eye Exam Eyelids: Bilateral normal inspection Results Labs on day of discharge: Labs from last 24 hours 03/30/21 03/29/21 07:02 18:30 WBC 25.5 H* RBC 4.98 Hgb 15.0 Hct 45.9 MCV 92.3 MCH 30.2 MCHC 32.7 RDW 15.4 Plt Count 198 MPV 9.2 Neut % (Auto) 91.4 H Lymph % (Auto) 5.7 L Rogers % (Auto) 2.3 Eos % (Auto) 0.3 Baso % (Auto) 0.2 Neut # (Auto) 23.4 H Lymph # (Auto) 1.5 Rogers # (Auto) 0.6 Eos # (Auto) 0.1 Baso # (Auto) 0.1 Total Counted 100 Neutrophils % (Manual) 82 H Band Neutrophils % 3.0 Lymphocytes % (Manual) 14 Monocytes % (Manual) 1 L Platelet Estimate Normal RBC Morphology Normal Specimen Source Left radial Tung Test Acceptable DS: Diagnosis - Discharge Diagnosis (1) Facial cellulitis Status: Acute Discharge Plan - Patient Discharge Instructions ACTIVITY: Continue current activity DIET: continue same diet - Follow up Plan Follow up with: Brien Rojas MD [Primary Care Provider] - 04/03/21 Disposition: Home, Self-Care Condition at discharge:: Improved Home Medications: Home Medications Medication Instructions Recorded Confirmed Type Alendronate Sodium [Alendronate 35 mg PO WEEKLY 03/29/21 03/30/21 History 35mg Tablet] Atorvastatin Calcium [Lipitor 40mg 40 mg PO HS 03/29/21 03/30/21 History Tab] Fluticasone/Vilanterol [Breo 1 blister IN DAILY 03/29/21 03/30/21 History Ellipta 200-25 Mcg INH] Levothyroxine Sodium 125 mcg PO DAILY 03/29/21 03/30/21 History [Levothyroxine] PARoxetine HCL [Paroxetine HCl] 30 mg PO DAILY 03/29/21 03/30/21 History Tobramycin/Dexamethasone [Tobradex 5 ml OP QID #1
[2021-03-31 08:22] LABS: Basophils % 0.2 % (0.1-2.0); Eosinophils # 0.1 K/mm3 (0.0-0.4); Eosinophils % 0.2 % (0.1-12.0); Hematocrit 43.3 % (37.0-47.0); Lymphocytes # 1.3 K/mm3 (0.7-4.5); Lymphocytes % 5.6 % (10-50); Mean Corpuscular HGB Conc 32.2 g/dL (31.8-35.4); Mean Corpuscular Hemoglobin 30.4 pg (27.0-31.2); Mean Corpuscular Volume 94.2 fl (81-99); Mean Platelet Volume 9.5 fl (7.4-10.4); Monocytes # 0.5 K/mm3 (0.1-1.0); Monocytes % 2.1 % (1.7-9.3); Neutrophils # 21.6 K/mm3 (1.8-7.8); Neutrophils % 91.9 % (37.0-80.0); Platelet Count 218 K/mm3 (142-424); Red Cell Distribution Width 15.8 % (11.5-17.5); White Blood Count 23.5 K/mm3 (4.8-10.8)
[2021-03-31 08:34] LABS: MANUAL DIFFERENTIAL MANUAL DIFFERENTIAL (MANUAL DIFF)
[2021-03-31 08:44] LABS: Chloride 109 mmol/L (98-107); Potassium 3.8 mmoL/L (3.5-5.1); Sodium 141 mmol/L (136-145)
[2021-03-31 08:46] LABS: Hypochromasia 1+; Lymphocytes % 4 % (10-50); Macrocytosis 1+; Monocytes % 2 % (2-9); Neutrophils % 94 % (42-76); Platelet Estimate Normal; Total Cells Counted 100
[2021-03-31 08:47] LABS: Anion Gap 12.8 mEq/L (5-15); Blood Urea Nitrogen 18 mg/dl (7-17); Calcium 7.9 mg/dl (8.4-10.2); Carbon Dioxide 23 mmol/L (22.0-30.0); Creatinine Clearance Estimated 75 mL/min (50-200); Estimated Glomerular Filt Rate 100 ml/min (>60); GFR (African American) 121 ML/MIN (>60); Glucose 246 mg/dl (74-100)
--- NOTE | 2021-03-31 09:23 | HMH.PHAINT ---
DISCHARGE MEDICATION COUNSELING COMPLETED. DISCUSSED TOBRADEX ADMINISTRATION, DEXAMETHASONE ADMIN AND SIDE EFFECTS.
== END 2021-03-31 10:45 | disposition home or self-care (01) | DRG 603 ==
LOC: ER 20:18 → 2ND 21:06
PROVIDERS: Admitting Provider Internal Medicine Adolescent Medicine; Emergency Provider Emergency Medicine; PCP Internal Medicine Adolescent Medicine; Visit Provider Internal Medicine Adolescent Medicine
DX: L03.211 Cellulitis of face (principal); Z20.822 Contact with and (suspected) exposure to COVID-19; Z79.899 Other long term (current) drug therapy; J44.9 Chronic obstructive pulmonary disease, unspecified; I10 Essential (primary) hypertension; F17.210 Nicotine dependence, cigarettes, uncomplicated
CPT/HCPCS: 36415; 70450; 70487; 71046; 80048; 80053; 82803; 83605; 85007; 85025; 87040; 90471; 94640; 96365; 96366; 99284; C9803; G0378; J3370; Q9967; U0003; U0005

== ENCOUNTER → 2021-04-03 11:55 | Outpatient (CLI) | payer MEDICARE, OTHER, SELFPAY | PROVIDERS: PCP Internal Medicine Adolescent Medicine; Visit Provider Nurse Practitioner | DX: Z20.822 Contact with and (suspected) exposure to COVID-19 (principal); U07.1 COVID-19 | CPT/HCPCS: C9803; U0003; U0005 ==

== ENCOUNTER 2021-05-24 08:19 | Day surgery (SDC) | payer MEDICARE, OTHER, SELFPAY ==
[2021-05-17 13:53] VITALS: BMI 32.1
[2021-05-24] VITALS (7 sets, daily range): BP systolic 107–141; BP diastolic 59–93; PULSE 65–85; RESP 18–22; TEMP 36.2–36.4; O2SAT 92–98
--- NOTE | 2021-05-24 08:56 | HMH.ANESCL ---
[facility] Anesthesia Checklist - Patient Identification Patient Identification: Arm Band - Structural Data Admitted From: Home Planned Operative Procedure/s: colonoscopy Consent for Planned Operative Procedure(s) Verified: Yes Verified Documents: Surgical Consent, History and Physical - NPO Status Verified Time NPO: 00:00 - Additional verifications Anesthesia Reactions: No - Airway Assessment C-Spine Mobility Assessed: Yes (mp2) TMJ Mobility Assessed: Yes Dentition: Good Dentition - Neurological Assessment Level of Consciousness: Awake, Alert - Anesthesia Plan Anesthesia Risk discussed: Yes Anesthesia Plan: Verified ASA Class: III Anesthesia Type: MAC [facility] History I have reviewed the patient's past medical history: Yes Medical History: Reports:: Chronic Obstructive Pulmonary Disease (COPD), Hyperlipidemia, Hypertension Denies:: Cancer, Diabetes Mellitus Type 1, Diabetes Mellitus Type 2, Internal Pacemaker, MRSA, Seizures *Have you ever received a pneumonia vaccine?: Yes *Have you received a flu vaccine this season?: Yes Other Medical History: Reports: Cataracts Anesthesia experience/problems:: nac Other Surgeries: Yes: Hysterectomy-Total. No: Pacemaker Amputation: No Fractures: No - *Social History Last grade of school completed: High school graduate Smoking Status: Current every day smoker Tobacco Type: cigarettes # Packs/Day (cigarettes): 1 Alcohol Intake: current Alcohol Intake Frequency:: holidays/special occasions only Substance Use Type: denies use *Occupational Status:: retired Housing: house Household Members: spouse *Travel in the last 8 weeks: None Family Hx:: Cancer, Coronary Artery Disease, Heart Attack, Hyperlipidemia, Hypertension
--- NOTE | 2021-05-24 09:37 | HMH.SCOPE ---
- Procedure: Date: 05/24/21 Patient Date of :: 1955 Procedure Performed:: Total colonoscopy with polypectomy by biopsy and snare Indications:: Patient is a 65-year-old female who had colonoscopy on 07/26/2015 and was found to have diverticulosis and a subtle descending colon polyp which was proven to be tubular adenoma. I had recommended 5-year follow-up colonoscopy. Performing Provider:: Bhargav Roberto MD Referring Provider:: Brien Rojas MD Sedation:: MAC sedation Procedure:: Patient was taken to endoscopy procedure room. She was positioned in lateral decubitus position. Adequate intravenous sedation was achieved with anesthesia titration of propofol. Variable stiffness Olympus colonoscope was inserted via the anus. Was advanced to the cecum without appreciable difficulty. Ileocecal valve and appendiceal orifice were clearly identified. Colonoscope was withdrawn through the colon with careful surveillance. In the descending colon there was a tiny diminutive polyp removed with biopsy forceps. Distal descending colon removed with cold biopsy forceps. In the proximal sigmoid colon there was a small polyp removed with cold snare. In the rectosigmoid region there were a couple of hyperplastic polyps removed with cold biopsy forceps. In the rectum there were a couple of hyperplastic polyps removed with cold biopsy forceps and 1 more prominent polyp removed in a similar fashion. Retroflexion revealed no evidence of any pathologic internal hemorrhoids. There was sigmoid diverticulosis. Colonoscope was withdrawn. Findings:: Sigmoid diverticulosis Polyps as noted above. Total of 8 polyps. Mostly hyperplastic appearing Recommendations:: Follow-up colonoscopy pending pathology. Complications:: None immediately apparent Estimated blood obtained (mL): 3
== END 2021-05-24 10:25 | disposition home or self-care (01) ==
LOC: OUTP 08:20
PROVIDERS: PCP Internal Medicine Adolescent Medicine; Visit Provider Surgery
PROC: 0DJD8ZZ Inspection of Lower Intestinal Tract, Via Natural or Artificial Opening Endoscopic (ICD-10-PCS; principal; 2021-05-24 09:30)
DX: Z12.11 Encounter for screening for malignant neoplasm of colon (principal); K62.1 Rectal polyp; Z86.010 Personal history of colon polyps; K57.32 Diverticulitis of large intestine without perforation or abscess without bleeding; K63.5 Polyp of colon; Z87.19 Personal history of other diseases of the digestive system; J44.9 Chronic obstructive pulmonary disease, unspecified; E78.5 Hyperlipidemia, unspecified; I10 Essential (primary) hypertension; Z72.0 Tobacco use; Z80.9 Family history of malignant neoplasm, unspecified; Z82.3 Family history of stroke; Z82.49 Family history of ischemic heart disease and other diseases of the circulatory system; Z83.438 Family history of other disorder of lipoprotein metabolism and other lipidemia
CPT/HCPCS: 45380; 45385; 88305; J2704

== ENCOUNTER → 2021-07-25 14:20 | Outpatient (CLI) | payer MEDICARE, OTHER, SELFPAY ==
[2021-07-25 16:14] LABS: Thyroid Stimulating Hormone 0.11 uIU/mL (0.465-4.68)
== END ==
PROVIDERS: PCP Internal Medicine Adolescent Medicine; Visit Provider Otolaryngology
DX: E03.9 Hypothyroidism, unspecified (principal)
CPT/HCPCS: 36415; 84443

== ENCOUNTER → 2021-09-09 12:16 | Outpatient (CLI) | payer MEDICARE, OTHER, SELFPAY ==
--- NOTE | 2021-09-09 12:24 | XR_ITS ---
PROCEDURE INFORMATION: Exam: XR Chest Exam date and time: 09/09/2021 12:25 PM Age: 65 years old Clinical indication: Other: Coph with acute , acute bronchopneumonia; Additional info: Copd with acute exacerbation , acute bronchopneumonia TECHNIQUE: Imaging protocol: XR of the chest. Views: 2 views. COMPARISON: CR XR CHEST 2V 03/29/2021 5:37 PM FINDINGS: Lungs: Stable calcified granuloma right lung. No focal consolidation. Pleural spaces: Unremarkable. No pleural effusion. No pneumothorax. Heart/Mediastinum: Unremarkable. No cardiomegaly. Bones/joints: Unremarkable. IMPRESSION: No focal consolidation.
[2021-09-09 13:07] LABS: Basophils # 0.1 K/mm3 (0-0.2); Basophils % 0.5 % (0.1-2.0); Eosinophils # 0.1 K/mm3 (0.0-0.4); Eosinophils % 0.6 % (0.1-12.0); Hematocrit 50.8 % (37.0-47.0); Hemoglobin 16.4 g/dL (12.2-16.2); Lymphocytes # 1.7 K/mm3 (0.7-4.5); Lymphocytes % 16.4 % (10-50); Mean Corpuscular HGB Conc 32.4 g/dL (31.8-35.4); Mean Corpuscular Hemoglobin 29.4 pg (27.0-31.2); Mean Corpuscular Volume 90.9 fl (81-99); Mean Platelet Volume 8.9 fl (7.4-10.4); Monocytes # 0.6 K/mm3 (0.1-1.0); Monocytes % 5.4 % (1.7-9.3); Neutrophils # 8.1 K/mm3 (1.8-7.8); Neutrophils % 77.1 % (37.0-80.0); Platelet Count 309 K/mm3 (142-424); Red Blood Count 5.59 M/mm3 (4.20-5.40); Red Cell Distribution Width 15.1 % (11.5-17.5); White Blood Count 10.5 K/mm3 (4.8-10.8)
[2021-09-09 14:38] LABS: Alanine Aminotransferase 23 U/L (12-78); Albumin/Globulin Ratio 1.4 (1.1-1.8); Alkaline Phosphatase 151 U/L (38-126); Anion Gap 9.3 mEq/L (5-15); Aspartate Amino Transferase 28 U/L (14-36); Bilirubin,Total 0.7 mg/dl (0.2-1.3); Blood Urea Nitrogen 15 mg/dl (7-17); Calcium 9.1 mg/dl (8.4-10.2); Carbon Dioxide 26 mmol/L (22.0-30.0); Chloride 107 mmol/L (98-107); Estimated Glomerular Filt Rate 100 ml/min (>60); GFR (African American) 121 ML/MIN (>60); Globulin 2.8 g/dL (1.3-3.2); Glucose 108 mg/dl (74-100); Potassium 4.3 mmoL/L (3.5-5.1); Sodium 138 mmol/L (136-145); Total Protein,Serum 6.8 g/dl (6.3-8.2)
== END ==
PROVIDERS: PCP Internal Medicine Adolescent Medicine; Referring Provider Internal Medicine Adolescent Medicine; Visit Provider Internal Medicine Adolescent Medicine
DX: J44.1 Chronic obstructive pulmonary disease with (acute) exacerbation (principal); J18.0 Bronchopneumonia, unspecified organism
CPT/HCPCS: 36415; 71046; 80053; 85025

== ENCOUNTER → 2021-10-04 10:40 | Outpatient (CLI) | payer MEDICARE, OTHER, SELFPAY ==
[2021-10-04 12:21] LABS: Thyroid Stimulating Hormone 2.41 uIU/mL (0.465-4.68)
== END ==
PROVIDERS: Visit Provider Otolaryngology
DX: E03.9 Hypothyroidism, unspecified (principal)
CPT/HCPCS: 36415; 84443

== ENCOUNTER → 2022-01-15 08:27 | Outpatient (CLI) | payer MEDICARE, OTHER, SELFPAY ==
--- NOTE | 2022-01-15 08:32 | CT_ITS ---
FINAL REPORT CLINICAL HISTORY: H/O NICOTINE DEPENDENCE CURRENT SMOKER 1PPD X53 YEARS COMPARISON: No prior FINDINGS: Axial images were obtained from the lung apex to the mid abdomen by computed tomography. Low-dose protocol was utilized. CTDl vol(mGy): 2.90 DLP (mGy-cm): 97.16 . FINDINGS: There is no axillary adenopathy. There is no hilar or mediastinal adenopathy. The heart size is normal. There is no pericardial or pleural effusion. Limited images of the upper abdomen are unremarkable. Lung window images demonstrate no suspicious infiltrate or nodule. There is granulomatous disease IMPRESSION: Lung RADS category 1. Recommend 12 month follow-up low-dose chest CT. Reviewed, Interpreted and Dictated by Viv Summers MD Transcribed by Claire Lucas Authenticated and . [facility]
== END ==
PROVIDERS: PCP Internal Medicine Adolescent Medicine; Visit Provider Internal Medicine Adolescent Medicine
DX: Z87.891 Personal history of nicotine dependence (principal); Z12.2 Encounter for screening for malignant neoplasm of respiratory organs
CPT/HCPCS: 71271

== ENCOUNTER → 2022-04-13 08:59 | Outpatient (CLI) | payer MEDICARE, OTHER, SELFPAY ==
--- NOTE | 2022-04-13 09:03 | XR_ITS ---
FINAL REPORT TECHNIQUE: Bone densitometry calculations of the lumbar spine and hip were obtained. CLINICAL HISTORY: . screening COMPARISON: 12/30/2019 FINDINGS: DEXA BONE DENSITY AXIAL SKELETON Using L1-4, the bone mineral density of the spine is 1.039 g/cm2, corresponding to T-score of -0.1. Previously measured 0.991 g/cm2, corresponding to T-score of -0.5. Using the right hip, the bone mineral density of the femoral neck is 0.647 g/cm2, corresponding to a T-score of -1.8. Previously measured 0.653 g/cm2, corresponding to T-score of -1.8. NOTE: T-score: Standard deviation compared with peak bone mass of young adult mean. *Following the recommendations of the International Society of Bone densitometry, classification of hip BMD is based on the lower of two T-scores; total hip or femoral neck. IMPRESSION: Diminished bone mineral density of the lumbar spine and right hip consistent with osteopenia, stable. Reviewed, Interpreted and Dictated by Bhargav Tinoco III, MD Transcribed by Michelle Merino Authenticated and [facility]
== END ==
PROVIDERS: PCP Internal Medicine Adolescent Medicine; Visit Provider Internal Medicine Adolescent Medicine
DX: M85.89 Other specified disorders of bone density and structure, multiple sites (principal)
CPT/HCPCS: 77080

== ENCOUNTER → 2022-07-18 14:11 | Outpatient (CLI) | payer MEDICARE, OTHER, SELFPAY ==
[2022-07-18 16:29] LABS: Free T4 (Free Thyroxine) 1.44 ng/dl (0.78-2.19)
[2022-07-18 16:44] LABS: Thyroid Stimulating Hormone 0.43 uIU/mL (0.465-4.68)
== END ==
PROVIDERS: PCP Internal Medicine Adolescent Medicine; Visit Provider Otolaryngology
DX: E03.9 Hypothyroidism, unspecified (principal)
CPT/HCPCS: 36415; 84439; 84443

== ENCOUNTER → 2022-11-01 09:48 | Outpatient (CLI) | payer MEDICARE, OTHER, SELFPAY ==
--- NOTE | 2022-11-01 09:51 | MM_ITS ---
PROCEDURE INFORMATION: Exam: MG Bilateral Screening 3D Mammography Exam date and time: 11/01/2022 9:45 AM Age: 66 years old Clinical indication: Screening examination TECHNIQUE: Imaging protocol: Bilateral Screening tomosynthesis and 2D mammography including computer-aided detection (CAD) when performed. COMPARISON: 1. MG MM DIG MAMM DX UNILAT RT CAD 07/26/2020 1:44 PM 2. MG MM DIG MAMM DX UNILAT RT CAD 01/14/2020 2:16 PM FINDINGS: MAMMOGRAPHY: Breast composition: The breasts are almost entirely fatty. Mass: None. Architectural distortion: None. Calcifications: No suspicious calcifications. Asymmetric density: None. Skin thickening: None. Axillary adenopathy: None. IMPRESSION: No mammographic evidence of malignancy. Annual screening is recommended unless otherwise clinically indicated. ASSESSMENT: BI-RADS Category 1: Negative
== END ==
PROVIDERS: PCP Internal Medicine Adolescent Medicine; Visit Provider Internal Medicine Adolescent Medicine
DX: Z12.31 Encounter for screening mammogram for malignant neoplasm of breast (principal)
CPT/HCPCS: 77063; 77067

== ENCOUNTER 2022-11-30 14:00 | Outpatient (RCR) | payer MEDICARE, OTHER, SELFPAY ==
--- NOTE | 2022-11-01 11:55 | HMH.PTOPEV ---
PT Outpatient Evaluation Rehab PT Outpatient Evaluation Start: 11/01/22 10:23 Freq: Status: Active Protocol: Document 11/01/22 10:23 GRAYSON (Rec: 11/01/22 11:54 GRAYSON [id number]) E-signed By Marjorie Gray PT Outpatient Therapy Subjective History Subjective History Pt is a 66 y/o female who reports onset of L sided neck and R sided low back pain a couple weeks ago when getting up out of her chair. Pt reports earlier that day she was picking up small sticks in her yard. Pt reports she has been taking Meloxican prescribed by PCP with improved pain/symptoms. Pt denies having imaging of the neck or back. Pt reports the left-sided neck pain radiates up behind her left ear, denies distal symptoms or paresthesia. Pt reports rotating her head irritates neck pain and makes it difficult to drive. Pt reports right-sided low back pain that refers to the posterior buttcoks/hip to the knee. Pt denies numbnes, tingling or b/ b dysfunction. Pt reports currently she has pain after sitting, standing, and walking for prolonged periods (5-10). Pt reporst if she walks with the use of a grocery cart pain improves. Pt also reports she has 1 flight of stairs with HR to her basement to the laundry which irritates her low back. Right-handed Medical History: pre-diabetes, asthma, osteopenia (denies cancer, pacemaker, spinal cord stimulator) Chief Complaint Pain,Stiff Symptom Type Ache,Dull Symptoms Relieved By Rest/Positioning,Heat, Prescription Meds Symptoms Aggravated By Sitting,Standing,Bending/ Stooping,Walking,Lifting Prior Functional Limitations None
== END 2022-11-30 14:05 | disposition home or self-care (01) ==
LOC: PT 14:00
PROVIDERS: PCP Internal Medicine Adolescent Medicine; Visit Provider Internal Medicine Adolescent Medicine
DX: M54.2 Cervicalgia (principal); M54.31 Sciatica, right side; M54.59 Other low back pain
CPT/HCPCS: 20560; 20561; 97010; 97014; 97110; 97140; 97163; G0283

== ENCOUNTER 2023-07-03 14:46 | Outpatient (CLI) | payer MEDICARE, OTHER, SELFPAY ==
--- OUTSIDE RECORDS SUMMARY | 2023-07-03 14:49 | XMS_ITS | Patient Health Record ---
Author Name Unknown Organization [facility] Address [address] [place] [address] Care Team Providers Care Manager Community Development Name Role Phone BertrandKendrick millerhen Primary Care Provider ALLERGIES No Known Allergies RESULTS Component Value Reference Range Notes THYROID PANEL WITH TSH (7444 ) Reviewed date:05/01/2023 08:47:52 AM Interpretation: Performing Lab:[facility] [facility] [employer] [place], EntelliumVgyrZV[address] Rafael Lin Notes/Report: NON-FASTING; NON-FASTING; NON-FASTING; NON-FASTING; NON-FAST FASTING:NO FASTING: NO T3 UPTAKE 30 22-35 % T4 (THYROXINE), TOTAL 9.0 5.1-11.9 mcg/dL FREE T4 INDEX (T7) 2.7 1.4-3.8 TSH 4.56 0.40-4.50 mIU/L LIPID PANEL, STANDARD (7600) Reviewed date:05/01/2023 08:47:52 AM Interpretation: Performing Lab:[facility] [employer] [employer] [employer] [employer], EntelliumVoitKB[address] Rafael Lin Notes/Report: NON-FASTING; NON-FASTING; NON-FASTING; NON-FASTING; NON-FAST FASTING:NO FASTING: NO CHOLESTEROL, TOTAL 135 <200 mg/dL HDL CHOLESTEROL 38 > OR = 50 mg/dL TRIGLYCERIDES 139 <150 mg/dL LDL-CHOLESTEROL 75 Reference range: <100 Desirable range <100 mg/dL for primary prevention; <70 mg/dL for patients with CHD or diabetic patients with > or = 2 CHD risk factors. LDL-C is now calculated using the Lis calculation, which is a validated novel method providing better accuracy than the Friedewald equation in the estimation of LDL-C. Zeus WHITAKER et al. RICHAR. 2013;310(19): 2557-7637 (http://education.[facility]/faq/RHC633) CHOL/HDLC RATIO 3.6 <5.0 (calc) NON HDL CHOLESTEROL 97 <130 mg/dL (calc) For patients with diabetes plus 1 major ASCVD risk factor, treating to a non-HDL-C goal of <100 mg/dL (LDL-C of <70 mg/dL) is considered a therapeutic option. COMPREHENSIVE METABOLIC PANE Bri (32620) Reviewed date:05/01/2023 08:47:52 AM Interpretation: Performing Lab:DIEGO, [facility] [address], [place] MarchPfxtMN[address] Rafael Lin Notes/Report: NON-FASTING; NON-FASTING; NON-FASTING; NON-FASTING; NON-FAST FASTING:NO FASTING: NO GLUCOSE 98 65-139 mg/dL Non-fasting reference interval UREA NITROGEN (BUN) 26 7-25 mg/dL CREATININE 0.82 0.50-1.05 mg/dL EGFR 78 > OR = 60 mL/min/1.73m2 BUN/CREATININE RATIO 32 6-22 (calc) SODIUM 144 135-146 mmol/L POTASSIUM 4.4 3.5-5.3 mmol/L CHLORIDE 107 98-110 mmol/L CARBON DIOXIDE 27 20-32 mmol/L CALCIUM 9.4 8.6-10.4 mg/dL PROTEIN, TOTAL 6.7 6.1-8.1 g/dL ALBUMIN 3.7 3.6-5.1 g/dL GLOBULIN 3.0 1.9-3.7 g/dL (calc) ALBUMIN/GLOBULIN RATIO 1.2 1.0-2.5 (calc) BILIRUBIN, TOTAL 0.4 0.2-1.2 mg/dL ALKALINE PHOSPHATASE 119 37-153 U/L AST 17 10-35 U/L ALT 16 6-29 U/L CBC (INCLUDES DIFF/PLT) (639 9) Reviewed date:05/01/2023 08:47:52 AM Interpretation: Performing Lab:D[facility]GO [facility] Kpr[address] [facility], [facility] HospitalCswyLG[address] Rafael Lin Notes/Report: NON-FASTING; NON-FASTING; NON-FASTING; NON-FASTING; NON-FAST FASTING:NO FASTING: NO WHITE BLOOD CELL COUNT 8.3 3.8-10.8 Thousand/ uL RED BLOOD CELL COUNT 5.02 3.80-5.10 Million/uL HEMOGLOBIN 15.1 11.7-15.5 g/dL HEMATOCRIT 44.5 35.0-45.0 % MCV 88.6 80.0-100.0 fL MCH 30.1 27.0-33.0 pg MCHC 33.9 32.0-36.0 g/dL RDW 14.0 11.0-15.0 % PLATELET COUNT 342 140-400 Thousand/uL MPV 10.8 7.5-12.5 fL ABSOLUTE NEUTROPHILS 4922 8416-7812 cells/uL ABSOLUTE LYMPHOCYTES 2764 850-3900 cells/uL ABSOLUTE MONOCYTES 423 200-950 cells/uL ABSOLUTE EOSINOPHILS 141 15-500 cells/uL ABSOLUTE BASOPHILS 50 0-200 cells/uL NEUTROPHILS 59.3 LYMPHOCYTES 33.3 MONOCYTES 5.1 EOSINOPHILS 1.7 BASOPHILS 0.6 HEMOGLOBIN A1c (496) Reviewed date:05/01/2023 08:47:52 AM Interpretation: Performing Lab:[facility] Wnrp1882 [address] [facility] Foundationtel [facility], [facility] HospitalPvjkMW[address] Rafael Lin Notes/Report: NON-FASTING; NON-FASTING; NON-FASTING; NON-FASTING; NON-FAST FASTING:NO FASTING: NO HEMOGLOBIN A1c 5.6 <5.7 % of total Hgb For the purpose of screening for the presence of diabetes: <5.7% Consistent with the absence of diabetes 5.7-6.4% Consistent with increased risk for diabetes (prediabetes) > or =6.5% Consistent with diabetes This assay result is consistent with a decreased risk of diabetes. Currently, no consensus exists regarding use of hemoglobin A1c for diagnosis of diabetes in children. According to [place] Diabetes Association (ADA) guidelines, hemoglobin A1c <7.0% represents optimal control in non- diabetic patients. Different metrics may apply to specific patient populations. Standards of Medical Care in Diabetes(ADA). TSH (259) Reviewed date:10/26/2022 10:08:01 AM Interpretation: Performing Lab:DIEGO, [facility] [id number], [place] RshhXF[address] Rafael Lin Notes/Report: NON-FASTING; NON-FASTING; NON-FASTING; NON-FASTING FASTING:YES FASTING: YES TSH 0.47 0.40-4.50 mIU/L HEMOGLOBIN A1c (496) Reviewed date:10/26/2022 10:08:00 AM Interpretation: Performing Lab:DIEGO, [facility], [place] JbruBL[address] Rafael Lin Notes/Report: NON-FASTING; NON-FASTING; NON-FASTING; NON-FASTING FASTING:YES FASTING: YES HEMOGLOBIN A1c 5.8 <5.7 % of total Hgb For someone without known diabetes, a hemoglobin A1c value between 5.7% and 6.4% is consistent with prediabetes and should be confirmed with a follow-up test. For someone with known diabetes, a value <7% indicates that their diabetes is well controlled. A1c targets should be individualized based on duration of diabetes, age, comorbid conditions, and other considerations. This assay result is consistent with an increased risk of diabetes. Currently, no consensus exists regarding use of hemoglobin A1c for diagnosis of diabetes for children. COMPREHENSIVE METABOLIC PANE L (56350) Reviewed date:10/26/2022 10:08:00 AM Interpretation: Performing Lab:[facility]IE[email or web address] [address] [facility], [place] LxorFU[address] Rafael Lin Notes/Report: NON-FASTING; NON-FASTING; NON-FASTING; NON-FASTING FASTING:YES FASTING: YES GLUCOSE 87 65-99 mg/dL Fasting reference interval UREA NITROGEN (BUN) 21 7-25 mg/dL CREATININE 0.81 0.50-1.05 mg/dL EGFR 80 > OR = 60 mL/min/1.73m2 The eGFR is based on the CKD-EPI 202 equation. To calculate the new eGFR from a previous Creatinine or Cystatin C result, go to https://www.kidney.org/pr ofessionals/ kdoqi/gfr%5Fcalculator BUN/CREATININE RATIO NOT APPLICABLE 6-22 (calc) SODIUM 144 135-146 mmol/L POTASSIUM 4.7 3.5-5.3 mmol/L CHLORIDE 106 98-110 mmol/L CARBON DIOXIDE 26 20-32 mmol/L CALCIUM 10.3 8.6-10.4 mg/dL PROTEIN, TOTAL 7.6 6.1-8.1 g/dL ALBUMIN 4.5 3.6-5.1 g/dL GLOBULIN 3.1 1.9-3.7 g/dL (calc) ALBUMIN/GLOBULIN RATIO 1.5 1.0-2.5 (calc) BILIRUBIN, TOTAL 0.7 0.2-1.2 mg/dL ALKALINE PHOSPHATASE 114 37-153 U/L AST 23 10-35 U/L ALT 21 6-29 U/L LIPID PANEL, STANDARD (7600) Reviewed date:10/26/2022 10:08:00 AM Interpretation: Performing Lab:D[facility] Ofzn[address]90 [facility], [facility] HospitalAaecVD[address] Rafael Lin Notes/Report: NON-FASTING; NON-FASTING; NON-FASTING; NON-FASTING FASTING:YES FASTING: YES CHOLESTEROL, TOTAL 183 <200 mg/dL HDL CHOLESTEROL 43 > OR = 50 mg/dL TRIGLYCERIDES 166 <150 mg/dL LDL-CHOLESTEROL 112 Reference range: <100 Desirable range <100 mg/dL for primary prevention; <70 mg/dL for patients with CHD or diabetic patients with > or = 2 CHD risk factors. LDL-C is now calculated using the Zeus-Moody calculation, which is a validated novel method providing better accuracy than the Friedewald equation in the estimation of LDL-C. Zeus SS et al. RICHAR. 2013;310(19): 2157-4302 (http://education.[facility]/faq/LLI588) CHOL/HDLC RATIO 4.3 <5.0 (calc) NON HDL CHOLESTEROL 140 <130 mg/dL (calc) For patients with diabetes plus 1 major ASCVD risk factor, treating to a non-HDL-C goal of <100 mg/dL (LDL-C of <70 mg/dL) is considered a therapeutic option. Mammogram : Bilateral Reviewed date:11/07/2022 09:44:19 AM Interpretation: Performing Lab: Notes/Report: REASON FOR REFERRAL No Information MEDICATIONS Medication SIG (Take, Route, Frequency, Duration) Notes Start Date End Date Status levothyroxine 100 mcg (0.1 mg) 1 tab(s) orally once a day Active alendronate 35 mg 1 tab(s) orally once a week for 84 Active Lipitor 40 mg 1 tab(s) orally once a day (at bedtime) for 90 Active meloxicam 15 mg 1 tab(s) orally once a day for 30 days Active Paxil 30 mg TAKE 1 TABLET BY MANISH TH DAILY for 90 Active Breo Ellipta 200 mcg-25 mcg/inh 1 puff(s) inhaled once a day for 30 day(s) 01/08/2020 Active Calcium 600+D 600 mg-800 intl units 1 tab(s) orally 2 times a day Active ZyrTEC 10 mg 1 tab(s) orally once a day Active MetFORMIN Hydrochloride 500 mg 1 tab(s) orally 2 times a day for 30 day(s) Active Aspir-Low 81 mg 1 tab(s) orally once a day for 30 days Active IMMUNIZATIONS Vaccine Route Administration Date Status Comme nts Prevnar PCV-20 (Pneumococcal conjugate 20) IM Intramuscular 04/23/2022 Administered Prevnar PCV-13 (Pneumococcal conjugate 13) IM Intramuscular 12/16/2019 Administered Pneumovax-23 (pneumococccal vaccine polyvalent)2 years or older IM Intramuscular 08/06/2013 Administered Pneumovax 23 IM Intramuscular 03/02/2021 Administered Fluzone High Dose IM Intramuscular 03/02/2021 Administered Fluzone High Dose IM Intramuscular 04/23/2022 Administered Fluzone High Dose IM Intramuscular 04/29/2023 Administered FLUZONE 6MO - OLDER IM Intramuscular 03/11/2019 Administer ed Flublok IM Intramuscular 03/23/2020 Administered Covid Moderna Unknown 07/01/2020 Administered Covid Moderna Unknown 08/02/2020 Administered SOCIAL HISTORY Tobacco Use: Social History Observation Description Date Details (start date - stop date) Current Smoker NA - NA Sex Assigned At : Social History Observation Description Sex Assigned At Unknown Smoking: Question Answer Notes Are you a: current smoker How often do you smoke cigarettes? some days, bu t not every day How many cigarettes a day do you smoke? 6-10 PROBLEMS Problem Type ICD Code Onset Dates Problem Status W/U Status Risk SNOMED Code Notes Problem Type 2 diabetes mellitus with other specified complication (E11.69) Active confirmed 823364428824 Problem Mixed hyperlipidemia (E78.2) Active confirmed 834566383 Problem Nicotine dependence, cigarettes, uncomplicated (F17.210) Active confirmed Tobacco user (033353656) Problem Panlobular emphysema (J43.1) Active confirmed 2289663 Problem Hypothyroidism (acquired) (E03.9) Active confirmed 185137179 Problem Asthma with COPD (J44.9) Active confirmed 45527455753288922 Problem Neuropathy (G62.9) Active confirmed 997420511 Problem Hyperlipemia, idiopathic familial (E78.5) Active confirmed 349980291 Problem Hypertension, essential (I10) Active confirmed 62492359 Problem Tubular adenoma of colon (D12.6) Active confirmed 079476278 Problem COPD with acute exacerbation (J44.1) Active confirmed 467343778 Problem Abnormal mammogram of right breast (R92.8) Active confirmed 107002270 Problem Obstructive sleep apnea (G47.33) Active confirmed 91510082 Problem Right sided sciatica (M54.31) Active confirmed 78669207 Problem Healthcare maintenance (Z00.00) Active confirmed 638929534 Problem Retinal hemorrhage of left eye (H35.62) Active confirmed 098201426812328 Problem Nicotine dependence with current use (F17.200) Active confirmed 788291998 Problem New onset type 2 diabetes mellitus (E11.9) Active confirmed 00752873 VITAL SIGNS Heart Rate 84 /min 04/29/2023 Temperature 98.0 degrees Fahrenheit 04/29/2023 Blood pressure diastolic 80 mm Hg 04/29/2023 Height 5 ft 5 in in 04/29/2023 Blood pressure systolic 126 mm Hg 04/29/2023 Weight 165.2 lbs 04/29/2023 BMI 27.49 kg/m2 04/29/2023 Encounters Encounter Location Date Provider Diagnosis [facility] [address] [place] [address] 10/24/2022 Brien Rojas New onset type 2 diabetes mellitus E11.9 ; Hypothyroidism (acquired) E03.9 ; Hyperlipemia, idiopathic familial E78.5 ; Right sided sciatica M54.31 ; Cervicalgia M54.2 and Screening mammogram for breast cancer Z12.31 [facility] [address] [place] [address] 04/29/2023 Brien Rojas Hypothyroidism (acquired) E03.9 ; Hyperlipemia, idiopathic familial E78.5 ; Type 2 diabetes mellitus with other specified complication E11.69 ; Mixed hyperlipidemia E78.2 ; Immunization(s) administered Z23 ; Gastroenteritis K52.9 ; Personal history of nicotine dependence Z87.891 and Routine medical exam Z00.[address] [address] 03/13/2023 Brien Bob ASSESSMENTS Encounter Date Diagnosis Assessment Notes Treatment Notes Treatment Clinical Notes 10/24/2022 Hypothyroidism (acquired) (ICD-10 - E03.9) 10/24/2022 New onset type 2 diabetes mellitus (ICD-10 - E11.9) Patient is done well with treatment for diabetes. Check A1c today. I will follow-up labs personally. 04/29/2023 Hypothyroidism (acquired) (ICD-10 - E03.9) Clinically euthyroid. We will check TSH levels. All reviewed personally. 04/29/2023 Hyperlipemia, idiopathic familial (ICD-10 - E78.5) Labs ordered. All reviewed personally 04/29/2023 Type 2 diabetes mellitus with other specified complication (ICD-10 - E11.69) Check A1c given complications of lipid issues. 10/24/2022 Hyperlipemia, idiopathic familial (ICD-10 - E78.5) 10/24/2022 Right sided sciatica (ICD-10 - M54.31) Meloxicam prescription as noted, made PT evaluation for sciatica and cervicalgia as these seem to be more chronic conditions. 04/29/2023 Mixed hyperlipidemia (ICD-10 - E78.2) 04/29/2023 Immunization(s) administered (ICD-10 - Z23) 10/24/2022 Cervicalgia (ICD-10 - M54.2) 10/24/2022 Screening mammogram for breast cancer (ICD-10 - Z12.31) 04/29/2023 Gastroenteritis (ICD-10 - K52.9) Seems to be improving, discussed hydration with electrolyte-containin g fluids. 04/29/2023 Personal history of nicotine dependence (ICD-10 - Z87.891) Greater than 5 minutes discussing smoking cessation. Patient in the precontemplative stage. Discussed with her that she would need help we could certainly do this. Up-to-date with low-dose CT scans. 04/29/2023 Routine medical exam (ICD-10 - Z00.00) Up-to-date with colon screening, mammograms, DEXA, low-dose CT scans. No falls, depression screening negative. Functional status excellent. PLAN OF TREATMENT Pending Test Test Name Order Date X ray : Chest 06/25/2013 Sleep Study 12/10/2018 H-ALK PHOS ISOENZYMES (FRACTIONATED) H-MISCELLANEOUS TEST 06/29/2015 C-TSH 03/11/2019 M-Complete Blood Count Auto Diff 018 M-Comprehensive Metabolic Panel 02/04/20 M-Lipid Panel 02/03/2018 M-Thyroid Stimulating Hormone 02/03/2018 M-Vitamin B12 03/02/2021 M-Vitamin D 25 Hydroxy 03/02/2021 M-Vitamin D 25 Hydroxy 03/23/2020 Next Appt Details Provider Name:Brien Madrigal Bob, 08/28/2023 09:15:00 AM, [address] [facility] [address] [facility], [address], [place], [address], Insurance Providers Payer Name Payer Address Payer Phone Subscriber Number Group Number Insured Name Patient Relationship to Insured Coverage Start Date Coverage End Date [place] [address] [place] [phone] [id number] Indira Al Self - patient is the insured [facility] [address] [place] [phone] [id number] Indira Al Self - patient is the insured MEDICATIONS ADMINISTERED Medication Instructions Date of Administration Dosage Notes Bicillin CR (adult dose) 12/05/2015 1.2 units Ceftriaxone 250 09/09/2021 250 mg Ceftriaxone 250 09/09/2021 250 mg Ceftriaxone 500 05/17/2014 500 mg Ceftriaxone 500 06/15/2015 500 mg Ceftriaxone 500 04/05/2017 500 mg Dexamethasone 4mg Injection 09/09/2021 4 mg Kenalog 40mg 03/21/2017 40 mg Kenalog 40mg 04/05/2017 40 mg Kenalog 05/17/2014 1 mL Kenalog 09/15/2014 1 mL Kenalog 06/15/2015 1 mL Kenalog 12/05/2015 1 mL MEDICAL (GENERAL) HISTORY Medical History History ICD Code hyperlipidemia anxiety hypertension endometriosis colonoscopy June 2015 - tubular adeno ma Tobacco use disorder Z72.0 Moderate osteopenia on DEXA 12/11 - rx [facility] arted - repeated 04/14 and stable Normal mammogram 08/14 and 10/2022 Macular degeration left eye Covid 19 diabetes Normal LDCT 02/12 Surgical History Surgery Date(Month/Year) vaginal partial hysterectomy 01/1985 left breast bx-benign 1990 D&C 11/1984 inj in lt eye for macular degeneration 0 11/25/2018 inj in lt eye for macular degeneration 0 06/2019 colonoscopy 05/24/2021 Hospitalization History Reason Date(Month/Year) reaction 03/2021 hysterectomy 1985
[2023-07-03 16:01] LABS: Free T4 (Free Thyroxine) 1.16 ng/dl (0.78-2.19)
[2023-07-03 16:04] LABS: Thyroid Stimulating Hormone 1.56 uIU/mL (0.465-4.68)
== END 2023-07-03 23:59 ==
PROVIDERS: PCP Internal Medicine Adolescent Medicine; Visit Provider Nurse Practitioner
DX: E03.9 Hypothyroidism, unspecified (principal)
CPT/HCPCS: 36415; 84439; 84443

== ENCOUNTER 2023-07-15 12:53 | Outpatient (CLI) | payer MEDICARE, OTHER, SELFPAY ==
--- NOTE | 2023-07-15 12:54 | US_ITS ---
FINAL REPORT CLINICAL HISTORY: hypothyroidism COMPARISON: None FINDINGS: THYROID ULTRASOUND: The right lobe of the thyroid measures 3.1 x 1.3 x 1.5 cm in size. There are several small subcentimeter nodules measuring up to 5 mm in size in the right lobe of the thyroid, which are hypoechoic, solid, and TI-RADS category 4 nodules. The left lobe of the thyroid has been surgically removed. The isthmus measures 3.3 mm in thickness. IMPRESSION: Previous left thyroidectomy. Several small subcentimeter nodules as described, TI-RADS category 4 nodules, which due to size do not require follow-up at this time. Reviewed, Interpreted and Dictated by Td Crocker MD Transcribed by Cathy Storm Authenticated and [facility]
== END 2023-07-15 23:59 ==
LOC: RAD 12:54
PROVIDERS: PCP Internal Medicine Adolescent Medicine; Visit Provider Nurse Practitioner
DX: E03.9 Hypothyroidism, unspecified (principal)
CPT/HCPCS: 76536

== ENCOUNTER 2023-09-26 15:41 | Outpatient (CLI) | payer MEDICARE, OTHER, SELFPAY ==
--- NOTE | 2023-09-26 15:44 | MR_ITS ---
FINAL REPORT CLINICAL HISTORY: ATAXIA, FREQUENT FALLS FINDINGS: Multiplanar MR imaging of the brain was performed without contrast. There is mild age-appropriate atrophy. There are scattered foci of increased T2 signal in the cerebral white matter that have a nonspecific appearance but likely represent mild chronic ischemic/gliotic changes. There is no evidence of intracranial hemorrhage or mass. No abnormal ventricular dilatation is identified. No abnormal extra-axial fluid collection is seen. No abnormality is seen on the diffusion weighted images. The posterior fossa and brainstem are unremarkable. Normal major vessel vascular flow voids are seen. IMPRESSION: Age-appropriate atrophy and mild chronic ischemic/gliotic changes. No acute intracranial abnormality. Reviewed, Interpreted and Dictated by Bhargav Tinoco III, MD Transcribed by Claire Lucas Authenticated and [facility]
== END 2023-09-26 23:59 ==
LOC: RAD 15:42
PROVIDERS: PCP Internal Medicine Adolescent Medicine; Visit Provider Internal Medicine Adolescent Medicine
DX: R27.0 Ataxia, unspecified (principal); R29.6 Repeated falls
CPT/HCPCS: 70551

== ENCOUNTER 2023-10-02 08:58 | Outpatient (CLI) | payer MEDICARE, OTHER, SELFPAY ==
--- NOTE | 2023-10-02 | CA_ITS ---
FINAL REPORT TECHNIQUE: Color Doppler, duplex Doppler and house scale sonography of the bilateral neck arterial vasculature was performed. Velocities were measured in the carotid arteries. Stenosis evaluation based on the validated velocity criteria. CLINICAL HISTORY: frequent fall, ataxia, dizziness, DM, HLD, smoker FINDINGS: The peak systolic velocity of the right common carotid artery is 55 cm/s. The peak systolic velocity of the right internal carotid artery is 110 cm/s and end diastolic velocity 46 cm/s. The ICA/CCA ratio is 1.6. A small amount of plaque is present. The right external carotid artery is patent. The right vertebral artery is patent with antegrade flow. The peak systolic velocity of the left common carotid artery is 60 cm/s. The peak systolic velocity of the left internal carotid artery is 82 cm/s and end diastolic velocity 26 cm/s. The ICA/CCA ratio is 1.6. A small amount of plaque is present. The left external carotid artery is patent.The left vertebral artery is patent with antegrade flow. IMPRESSION: Less than 50% bilateral carotid stenoses. Bilateral patent vertebral arteries with antegrade flow. If indicated, CTA or MRA could further evaluate. Reviewed, Interpreted and Dictated by Bhargav Tinoco III, MD Transcribed by Arabella Noel Authenticated and [facility]
== END 2023-10-02 23:59 | disposition home or self-care (01) ==
PROVIDERS: PCP Internal Medicine Adolescent Medicine; Visit Provider Internal Medicine Adolescent Medicine
DX: R27.0 Ataxia, unspecified (principal); R29.6 Repeated falls
CPT/HCPCS: 93880

== ENCOUNTER 2023-10-28 07:57 | Outpatient (CLI) | payer MEDICARE, OTHER, SELFPAY | END 2023-10-28 23:59 | disposition home or self-care (01) | LOC: RT 07:58 | PROVIDERS: PCP Internal Medicine Adolescent Medicine; Visit Provider Internal Medicine Adolescent Medicine | DX: J43.1 Panlobular emphysema (principal); F17.210 Nicotine dependence, cigarettes, uncomplicated | CPT/HCPCS: 94060; 94726; 94729 ==

== ENCOUNTER 2024-01-06 13:18 | Outpatient (CLI) | payer MEDICARE, OTHER, SELFPAY ==
--- NOTE | 2024-01-06 13:25 | MM_ITS ---
PROCEDURE INFORMATION: Exam: MG Bilateral Screening 3D Mammography Exam date and time: 01/06/2024 1:13 PM Age: 68 years old Clinical indication: Screening examination. Her maternal grandmother had breast cancer. TECHNIQUE: Imaging protocol: Bilateral Screening tomosynthesis and 2D mammography including computer-aided detection (CAD) when performed. COMPARISON: 1. MG MM DIG SCREENING MAMM BI W/CAD 11/01/2022 9:45 AM 2. MG MM DIG MAMM DX UNILAT RT CAD 07/26/2020 1:44 PM 3. MG MM DIG MAMM DX UNILAT RT CAD 01/14/2020 2:16 PM 4. MG MM DIG SCREENING MAMM BI W/CAD 12/30/2019 8:31 AM FINDINGS: MAMMOGRAPHY: Breast composition: The breasts are almost entirely fatty. Mass: None. Architectural distortion: None. Calcifications: No suspicious calcifications. Asymmetric density: No developing asymmetry. Skin thickening: None. Axillary adenopathy: None. IMPRESSION: No mammographic evidence of malignancy. Annual screening is recommended unless otherwise clinically indicated. ASSESSMENT: BI-RADS Category 1: Negative
--- NOTE | 2024-01-06 13:26 | CT_ITS ---
FINAL REPORT CLINICAL HISTORY: NICOTINE DEPENDENCE current smoker 1.1izht11 years COMPARISON: 01/15/2022 FINDINGS: CTDI vol (mGy): 2.90 DLP: 92.[address] images of the chest were obtained using the low-dose protocol for screening. There is no evidence of mediastinal or hilar mass or adenopathy. No axillary mass or adenopathy is identified. On the lung window images, no pulmonary mass or suspicious nodule is identified. There are scattered calcified granulomas. There is a new, trace right pleural effusion. IMPRESSION: Lung RADS category 1 S. No new pulmonary mass or nodule. Trace right pleural effusion, new from prior exam. Recommend 12 month followup low-dose CT for further evaluation. Reviewed, Interpreted and Dictated by Viv Summers MD Transcribed by Isa Salazar Authenticated and [facility]
== END 2024-01-06 23:59 | disposition home or self-care (01) ==
LOC: RAD 13:19
PROVIDERS: PCP Internal Medicine Adolescent Medicine; Visit Provider Internal Medicine Adolescent Medicine
DX: Z12.31 Encounter for screening mammogram for malignant neoplasm of breast (principal); Z87.891 Personal history of nicotine dependence
CPT/HCPCS: 71271; 77063; 77067

== ENCOUNTER 2024-09-03 13:08 | Outpatient (CLI) | payer MEDICARE, OTHER, SELFPAY ==
--- NOTE | 2024-09-03 13:16 | US_ITS ---
FINAL REPORT TECHNIQUE: Sonographic images of the thyroid were obtained. CLINICAL HISTORY: repeat thyroid us COMPARISON: 07/15/2023 FINDINGS: THYROID ULTRASOUND The right thyroid gland measures 3.5 x 1.6 x 1.2 cm. The parenchyma shows normal echogenicity. Multiple nodules are noted. There is a 5 mm nodule in the superior right lobe of the thyroid which is solid, hypoechoic, TI-RADS 4. There is a 5 mm nodule in the mid right lobe of the thyroid which is solid, hypoechoic, TI-RADS 4. The left lobe of the thyroid has been surgically resected. IMPRESSION: Stable less than 1 cm right thyroid lobe nodules, TI-RADS 4. No follow-up recommended per TI-RADS criteria. Reviewed, Interpreted and Dictated by Td Crocker MD Transcribed by Shavonne Castillo Authenticated and [facility]
[2024-09-03 15:14] LABS: Free T4 (Free Thyroxine) 1.49 ng/dl (0.78-2.19)
[2024-09-03 15:25] LABS: Thyroid Stimulating Hormone 0.02 uIU/mL (0.465-4.68)
== END 2024-09-03 23:59 | disposition home or self-care (01) ==
LOC: RAD 13:09
PROVIDERS: PCP Internal Medicine Adolescent Medicine; Visit Provider Nurse Practitioner
DX: E03.9 Hypothyroidism, unspecified (principal)
CPT/HCPCS: 36415; 76536; 84439; 84443

== ENCOUNTER 2025-01-11 17:26 | Emergency (ER) | payer MEDICARE, OTHER, SELFPAY ==
--- OUTSIDE RECORDS SUMMARY | 2025-01-01 11:57 | XMS_ITS ---
Author Organization [facility] Address [address] [place] [address] Care Team Providers Care Manager Heavy Equipment Name Role Phone Brien Rojas Primary Care Provider REASON FOR VISIT mammogram order Encounters Encounter Location Date Provider Diagnosis [facility] [address] [place] [address] 01/01/2025 Brien Rojas Breast cancer screening by mammogram Z12.31 Assessments Encounter Date Diagnosis (ICD Code) Assessment Notes Treatment Notes Treatment Clinical Notes Section Notes 01/01/2025 Breast cancer screening by mammogram (ICD-10 - Z12.31) Plan Of Treatment Pending Test Test Name Order Date Mammogram : Bilateral 01/01/2025 Next Appt Details Provider Name:Brien Rojas, 02/03/2025 10:45:00 AM, [address], [address], [place], [address], Progress Notes * Cecy ALB:1955 (69 yo F)Acc No.[id number]:01/01/2025 Patient: Dejan LYDIA Indira :1955 A ge:69 Y S ex:Female Address:[facility] [place], [address] Subjective: * Chief Complaints: * M ammogram order * Medical History: * Surgical History: * Hospitalization/Major Diagno stic Procedure: * Medications: Objective: * Vitals: * Physical Examination: Assessment: * Assessment: 1. B reast cancer screening by mammogram - Z12.31 Plan: * Treatment: * Procedure Codes: * true * Date: Generated for Kristen rodriguez/Marlena/Jayaitting on: 0 01/11/2025 06:44 PM EDT
--- OUTSIDE RECORDS SUMMARY | 2025-01-07 19:13 | XMS_ITS ---
Author Organization [facility] Address [address] [place] [address] Care Team Providers Care Gear Straightener Name Role Phone Brien Rojas Primary Care Provider [phone] REASON FOR VISIT New Referral Request Encounters Encounter Location Date Provider Diagnosis [facility] [address] [place] [address] 01/07/2025 Brien Rojas Breast cancer screening by mammogram Z12.31 Assessments Encounter Date Diagnosis (ICD Code) Assessment Notes Treatment Notes Treatment Clinical Notes Section Notes 01/07/2025 Breast cancer screening by mammogram (ICD-10 - Z12.31) Plan Of Treatment Pending Test Test Name Order Date Mammogram : Bilateral 01/07/2025 Next Appt Details Provider Name:Brien Rojas, 02/03/2025 10:45:00 AM, [address], [address], [place], [address], Progress Notes * Cecy ALB:1955 (69 yo F)Acc No.[id number]:01/07/2025 Patient: Dejan LYDIA Indira :1955 A ge:69 Y S ex:Female Address:[place], [address] Subjective: * Chief Complaints: * N ew [...]
[2025-01-11 17:28] VITALS: BP 143/54; PULSE 89; RESP 18; TEMP 36.6; O2SAT 98; BMI 19.7
--- OUTSIDE RECORDS SUMMARY | 2025-01-11 18:44 | XMS_ITS | Patient Health Record ---
Author Organization [facility] D [facility] Address [address] [place] [address] Care Team Providers Care Junior Linux Systems Administrator Name Role Phone Brien Rojas Primary Care Provider Migration, Provider Unavailable Unavailable Allergies No Known Allergies Results Component Value Reference Range Notes VITAMIN B12/FOLATE, SERUM PA KRISTIN (7065) Reviewed date:10/30/2024 08:15:44 AM Interpretation: Performing Lab:DIEGO [facility] Blef[address] [facility], Transmit [id number] Rafael Lin Notes/Report: NON-FASTING; NON-FASTING; NON-FASTING; NON-FASTING; NON-FAST FASTING:YES FASTING: YES VITAMIN B12 [phone] pg/mL FOLATE, SERUM 5.9 Reference Range Low: <3.4 Borderline: 3.4-5.4 Normal: >5.4 CBC (INCLUDES DIFF/PLT) (639 9) Reviewed date:10/30/2024 08:15:44 AM Interpretation: Performing Lab:DIEGO [facility] Rxws7561 [address], Transmit [id number] Rafael Lin Notes/Report: NON-FASTING; NON-FASTING; NON-FASTING; NON-FASTING; NON-FAST FASTING:YES FASTING: YES WHITE BLOOD CELL COUNT 10.0 3.8-10.8 Thousand/ uL RED BLOOD CELL COUNT 5.48 3.80-5.10 Million/uL HEMOGLOBIN 15.8 11.7-15.5 g/dL HEMATOCRIT 49.7 35.0-45.0 % MCV 90.7 80.0-100.0 fL MCH 28.8 27.0-33.0 pg MCHC 31.8 32.0-36.0 g/dL For adults, a slight decrease in the calculated MCHC value (in the range of 30 to 32 g/dL) is most likely not clinically significant; however, it should be interpreted with caution in correlation with other red cell parameters and the patient's clinical condition. RDW 14.5 11.0-15.0 % PLATELET COUNT 372 140-400 Thousand/uL MPV 10.4 7.5-12.5 fL ABSOLUTE NEUTROPHILS 7160 0917-7494 cells/uL ABSOLUTE LYMPHOCYTES 2090 850-3900 cells/uL ABSOLUTE MONOCYTES 540 200-950 cells/uL ABSOLUTE EOSINOPHILS 180 15-500 cells/uL ABSOLUTE BASOPHILS 30 0-200 cells/uL NEUTROPHILS 71.6 LYMPHOCYTES 20.9 MONOCYTES 5.4 EOSINOPHILS 1.8 BASOPHILS 0.3 CBC (INCLUDES DIFF/PLT) (639 9) Reviewed date:05/14/2024 02:53:29 PM Interpretation: Performing Lab:CB, [facility] Lkpi1793 [facility], [facility] [id number] Rafael Lin Notes/Report: WHITE BLOOD CELL COUNT 6.7 3.8-10.8 Thousand/ uL RED BLOOD CELL COUNT 4.99 3.80-5.10 Million/uL HEMOGLOBIN 14.7 11.7-15.5 g/dL HEMATOCRIT 45.9 35.0-45.0 % MCV 92.0 80.0-100.0 fL MCH 29.5 27.0-33.0 pg MCHC 32.0 32.0-36.0 g/dL For adults, a slight decrease in the calculated MCHC value (in the range of 30 to 32 g/dL) is most likely not clinically significant; however, it should be interpreted with caution in correlation with other red cell parameters and the patient's clinical condition. RDW 13.9 11.0-15.0 % PLATELET COUNT 233 140-400 Thousand/uL MPV 11.5 7.5-12.5 fL ABSOLUTE NEUTROPHILS 4348 2742-0735 cells/uL ABSOLUTE LYMPHOCYTES 8435 981-7858 cells/uL ABSOLUTE MONOCYTES 503 200-950 cells/uL ABSOLUTE EOSINOPHILS 147 15-500 cells/uL ABSOLUTE BASOPHILS 20 0-200 cells/uL NEUTROPHILS 64.9 LYMPHOCYTES 25.1 MONOCYTES 7.5 EOSINOPHILS 2.2 BASOPHILS 0.3 MAGNESIUM (622) Reviewed date:08/07/2024 02:01:49 PM Interpretation: Performing Lab:DIE[facility] Pcuw9948 [address] [place], [facility] SystemIhxgVY[address] Rafael Lin Notes/Report: NON-FASTING; NON-FASTING; NON-FASTING; NON-FASTING MAGNESIUM 2.1 1.5-2.5 mg/dL BASIC METABOLIC PANEL (67347 ) Reviewed date:08/07/2024 02:01:49 PM Interpretation: Performing Lab:DIEGO FresviiTransmit Promoe1355 [address] [facility], [place] [facility] SystemHmvjBT[address] Rafael Lin Notes/Report: NON-FASTING; NON-FASTING; NON-FASTING; NON-FASTING GLUCOSE 89 65-99 mg/dL Fasting reference interval UREA NITROGEN (BUN) 25 7-25 mg/dL CREATININE 0.77 0.50-1.05 mg/dL EGFR 83 > OR = 60 mL/min/1.73m2 BUN/CREATININE RATIO SEE NOTE: 6-22 (calc) Not Reported: BUN and Creatinine are within reference range. SODIUM 145 135-146 mmol/L POTASSIUM 4.2 3.5-5.3 mmol/L CHLORIDE 110 98-110 mmol/L CARBON DIOXIDE 29 20-32 mmol/L CALCIUM 8.8 8.6-10.4 mg/dL COMPREHENSIVE METABOLIC PANE L (40812) Reviewed date:05/14/2024 02:53:29 PM Interpretation: Performing Lab:DIEGO [facility] Ejuv1294 [address] [facility], [place] [facility] SystemYocjTC[address] Rafael Lin Notes/Report: GLUCOSE 85 65-99 mg/dL Fasting reference interval UREA NITROGEN (BUN) 28 7-25 mg/dL CREATININE 0.82 0.50-1.05 mg/dL EGFR 77 > OR = 60 mL/min/1.73m2 BUN/CREATININE RATIO 34 6-22 (calc) SODIUM 144 135-146 mmol/L POTASSIUM 4.3 3.5-5.3 mmol/L CHLORIDE 108 98-110 mmol/L CARBON DIOXIDE 26 20-32 mmol/L CALCIUM 9.9 8.6-10.4 mg/dL PROTEIN, TOTAL 6.5 6.1-8.1 g/dL ALBUMIN 4.0 3.6-5.1 g/dL GLOBULIN 2.5 1.9-3.7 g/dL (calc) ALBUMIN/GLOBULIN RATIO 1.6 1.0-2.5 (calc) BILIRUBIN, TOTAL 0.6 0.2-1.2 mg/dL ALKALINE PHOSPHATASE 106 37-153 U/L AST 17 10-35 U/L ALT 13 6-29 U/L COMPREHENSIVE METABOLIC PANE L ([id number]) Reviewed date:10/30/2024 08:15:44 AM Interpretation: Performing Lab:DIEGO, [facility] [id number] [address], Transmit [id number] Rafael Lin Notes/Report: NON-FASTING; NON-FASTING; NON-FASTING; NON-FASTING; NON-FAST FASTING:YES FASTING: YES GLUCOSE 93 65-99 mg/dL Fasting reference interval UREA NITROGEN (BUN) 27 7-25 mg/dL CREATININE 0.84 0.50-1.05 mg/dL EGFR 75 > OR = 60 mL/min/1.73m2 BUN/CREATININE RATIO 32 6-22 (calc) SODIUM 145 135-146 mmol/L POTASSIUM 4.5 3.5-5.3 mmol/L CHLORIDE 108 98-110 mmol/L CARBON DIOXIDE 24 20-32 mmol/L CALCIUM 9.6 8.6-10.4 mg/dL PROTEIN, TOTAL 6.9 6.1-8.1 g/dL ALBUMIN 4.2 3.6-5.1 g/dL GLOBULIN 2.7 1.9-3.7 g/dL (calc) ALBUMIN/GLOBULIN RATIO 1.6 1.0-2.5 (calc) BILIRUBIN, TOTAL 0.3 0.2-1.2 mg/dL ALKALINE PHOSPHATASE 130 37-153 U/L AST 16 10-35 U/L ALT 13 6-29 U/L LIPID PANEL, STANDARD (7600) Reviewed date:10/30/2024 08:15:44 AM Interpretation: Performing Lab:DIEGO, [facility] [address], Transmit [id number] Rafael Lin Notes/Report: NON-FASTING; NON-FASTING; NON-FASTING; NON-FASTING; NON-FAST FASTING:YES FASTING: YES CHOLESTEROL, TOTAL 153 <200 mg/dL HDL CHOLESTEROL 47 > OR = 50 mg/dL TRIGLYCERIDES 123 <150 mg/dL LDL-CHOLESTEROL 84 Reference range: <100 Desirable range <100 mg/dL for primary prevention; <70 mg/dL for patients with CHD or diabetic patients with > or = 2 CHD risk factors. LDL-C is now calculated using the Lis calculation, which is a validated novel method providing better accuracy than the Friedewald equation in the estimation of LDL-C. Zeus SS et al. RICHAR. 2013;310(81): 2805-0865 (http://[employer]/faq/GZF066) CHOL/HDLC RATIO 3.3 <5.0 (calc) NON HDL CHOLESTEROL 106 <130 mg/dL (calc) For patients with diabetes plus 1 major ASCVD risk factor, treating to a non-HDL-C goal of <100 mg/dL (LDL-C of <70 mg/dL) is considered a therapeutic option. THYROID PANEL WITH TSH (7444 ) Reviewed date:08/07/2024 02:01:49 PM Interpretation: Performing Lab:DIE[facility] Lab[facility] [employer], Transmit [id number] Rafael Lin Notes/Report: NON-FASTING; NON-FASTING; NON-FASTING; NON-FASTING T3 UPTAKE 33 22-35 % T4 (THYROXINE), TOTAL 14.5 5.1-11.9 mcg/dL FREE T4 INDEX (T7) 4.8 1.4-3.8 TSH 0.02 0.40-4.50 mIU/L THYROID PANEL WITH TSH (7444 ) Reviewed date:05/14/2024 02:53:28 PM Interpretation: Performing Lab:[facility] [employer], Transmit [id number] Rafael Lin Notes/Report: T3 UPTAKE 31 22-35 % T4 (THYROXINE), TOTAL 13.7 5.1-11.9 mcg/dL FREE T4 INDEX (T7) 4.2 1.4-3.8 TSH 0.06 0.40-4.50 mIU/L THYROID PANEL WITH TSH (7444 ) Reviewed date:10/30/2024 08:15:44 AM Interpretation: Performing Lab:DIEGO [address], Transmit [id number] Rafael Lin Notes/Report: NON-FASTING; NON-FASTING; NON-FASTING; NON-FASTING; NON-FAST FASTING:YES FASTING: YES T3 UPTAKE 27 22-35 % T4 (THYROXINE), TOTAL 10.6 5.1-11.9 mcg/dL FREE T4 INDEX (T7) 2.9 1.4-3.8 TSH 2.53 0.40-4.50 mIU/L VITAMIN B12 (927) Reviewed date:08/07/2024 02:01:49 PM Interpretation: Performing Lab:CB, [facility], [place] [facility] [id number] Rafael Lin Notes/Report: NON-FASTING; NON-FASTING; NON-FASTING; NON-FASTING VITAMIN B12 [phone] pg/mL Reason For Referral No Information Medications Medication SIG (Take, Route, Frequency, Duration) Notes Start Date End Date Status Meloxicam 15 MG 1 tab(s) orally once a day; Duration: 30 days Active Doxycycline Hyclate 100 MG 1 cap(s) orally 2 times a day; Duration: 7 days 10/28/2024 Active ASPIR-LOW 81 MG 1 TAB(S) ORALLY ONCE A DAY; Duration: 30 DAYS *Please review for potential replacement for e-prescription and drug interaction check* Active Ciclodan 8 % 1 diana applied topically twice daily; Duration: 24 days Active Calcium 600 + D 600 MG-800 INTL UNITS 1 TAB(S) ORALLY 2 TIMES A DAY *Please review and pick correct strength-formulatio n from [employer] options. If intended option is not shown, discontinue and re-order from Quick Search* Active predniSONE 20 MG 3 tabs orally once a day for two days, then 2 daily for 2 days, then one daily for two days; Duration: 6 day(s) 10/28/2024 Active ZyrTEC Allergy 10 MG 1 tab(s) orally once a day Active Trelegy Ellipta 100-62.5-25 MCG/ACT INHALE 1 PUFF BY MOUTH DAILY; Duration: 30 days Active buPROPion HCl ER (XL) 300 MG 1 tab(s) orally every 24 hours; Duration: 90 days Active Synthroid 75 MCG 1 tab(s) orally once a day; Duration: 90 days Active metFORMIN HCl 500 MG TAKE 1 TABLET BY MOUTH TWICE DAILY; Duration: 30 Active Atorvastatin Calcium 40 MG TAKE 1 TABLET BY MOUTH DAILY AT BEDTIME; Duration: 90 Active Alendronate Sodium 35 MG 1 tab(s) orally once a week; Duration: 84 Active Immunizations Vaccine Route Administration Date Status Comme nts Arexvy IM Intramuscular 05/13/2024 Administered Boostrix IM Intramuscular 10/28/2024 Administered Covid Moderna Unknown 08/02/2020 Administered Covid Moderna Unknown 07/01/2020 Administered FLUZONE 6MO - OLDER IM Intramuscular 03/11/2019 Administer ed Fluzone High Dose IM Intramuscular 04/08/2024 Administered Fluzone High Dose IM Intramuscular 04/29/2023 Administered Pneumovax 23 IM Intramuscular 03/02/2021 Administered Pneumovax-23 (pneumococccal vaccine polyvalent)2 years or older IM Intramuscular 08/06/2013 Administered Prevnar PCV-13 (Pneumococcal conjugate 13) IM Intramuscular 12/16/2019 Administered Prevnar PCV-20 (Pneumococcal conjugate 20) IM Intramuscular 04/23/2022 Administered SHINGRIX Unknown 2019 Administered SHINGRIX Unknown 02/19/2020 Administered Fluzone High Dose IM Intramuscular 03/02/2021 Administered Fluzone High Dose IM Intramuscular 04/23/2022 Administered Flublok IM Intramuscular 03/23/2020 Administered Social History Tobacco Use: Social History Observation Description Date Details (start date - stop date) Former Smoker NA - NA Tobacco Control (Standard) Question Answer Notes Tobacco use: Former smoker How long has it been since you last smoked? 3-6 months Problems Problem Type SNOMED Code ICD Code Onset Dates Problem Status W/U Status Risk Notes Problem Type 2 diabetes mellitus with other specified complication (E11.69) Active confirmed Problem Mixed hyperlipidemia (936748432) Mixed hyperlipidemia (E78.2) Active confirmed Problem Tobacco user (968860913) Nicotine dependence, cigarettes, uncomplicated (F17.210) Active confirmed Problem Panlobular emphysema (4260161) Panlobular emphysema (J43.1) Active confirmed Problem Acute exacerbation of chronic obstructive airways disease (172010713) COPD with exacerbation (J44.1) Active confirmed Problem Hypothyroidism (44045400) Hypothyroidism (acquired) (E03.9) Active confirmed Problem Chronic obstructive pulmonary disease (77150431) Asthma with COPD (J44.9) Active confirmed Problem Neuropathy (666502251) Neuropathy (G62.9) Active confirmed Problem Hyperlipidemia (30583280) Hyperlipemia, idiopathic familial (E78.5) Active confirmed Problem Essential hypertension (19955621) Hypertension, essential (I10) Active confirmed Problem Tubular adenoma of colon (614637779) Tubular adenoma of colon (D12.6) Active confirmed Problem Mammography abnormal (258187473) Abnormal mammogram of right breast (R92.8) Active confirmed Problem Recurrent falls (855446322) Frequent falls (R29.6) Active confirmed Problem Chronic fatigue syndrome (75583953) Chronic fatigue (R53.82) Active confirmed Problem Obstructive sleep apnea (28246772) Obstructive sleep apnea (G47.33) Active confirmed Problem Ataxia (30172027) Ataxia (R27.0) Active confirm ed Problem Sciatica (14388290) Right sided sciatica (M54.31) Active confirmed Problem Adult health examination (883759587) Healthcare maintenance (Z00.00) Active confirmed Problem Retinal hemorrhage (33772789) Retinal hemorrhage of left eye (H35.62) Active confirmed Problem Tobacco user (348644630) Nicotine dependence with current use (F17.200) Active confirmed Problem Type II diabetes mellitus without complication (064001436) New onset type 2 diabetes mellitus (E11.9) Active confirmed Vital Signs Heart Rate 80 /min 10/28/2024 Temperature 97.2 degrees Fahrenheit 10/28/2024 Blood pressure diastolic 82 mm Hg 10/28/2024 Height 5 ft 5 in in 10/28/2024 Blood pressure systolic 122 mm Hg 10/28/2024 Weight 172.4 lbs 10/28/2024 BMI 28.69 kg/m2 10/28/2024 Encounters Encounter Location Date Provider Diagnosis [facility] [address] [place] [address] 09/26/2024 Provider Migration [facility] [address] [place] [address] 04/08/2024 Brien Rojas Hypothyroidism (acquired) E03.9 ; Panlobular emphysema J43.1 ; Hypertension, essential I10 ; Nicotine dependence, cigarettes, uncomplicated F17.210 and Immunization(s) administered Z23 [facility] [address] [place] [address] 05/13/2024 Brien Besson Hypothyroidism (acquired) E03.9 ; Hypertension, essential I10 ; Nicotine dependence, cigarettes, uncomplicated F17.210 ; Chronic fatigue R53.82 ; Healthcare maintenance Z00.00 ; Vitamin B12 deficiency E53.8 and Immunization(s) administered Z23 [facility] [address] [facility] [address] [place] [address] 08/05/2024 Brien Besson Hypothyroidism (acquired) E03.9 and Tremor R25.1 [facility] [address] [facility] [address] [place] [address] 10/28/2024 Brien Besson Hypothyroidism (acquired) E03.9 ; Panlobular emphysema J43.1 ; Hyperlipemia, idiopathic familial E78.5 ; Hypertension, essential I10 ; Type 2 diabetes mellitus with other specified complication E11.69 ; COPD with exacerbation J44.1 ; Vitamin B12 deficiency E53.8 and Encounter for immunization Z23 [facility] [address] [facility] [address] [place] [address] 03/04/2024 Brien Besson [facility] [address] [facility] [address] [place] [address] 05/14/2024 Brien Besson [facility] [address] [place] [address] 08/07/2024 Brien Besson [facility] [address] [facility] [address] [place] [address] 01/01/2025 Brien Besson Breast cancer screening by mammogram Z12.31 [facility] [address] [facility] [address] [place] [address] 01/07/2025 Brien Besson [facility] [address] [facility] [address] [place] [address] 01/07/2025 Brien Besson Breast cancer screening by mammogram Z12.31 Assessments Encounter Date Diagnosis (ICD Code) Assessment Notes Treatment Notes Treatment Clinical Notes Section Notes 04/08/2024 Panlobular emphysema (ICD-10 - J43.1) Stable. On inhalers. 04/08/2024 Hypothyroidism (acquired) (ICD-10 - E03.9) Clinically euthyroid. On stable dose of Synthroid. No changes in symptoms. At next month's Medicare wellness exam will draw thyroid panel 05/13/2024 Hypothyroidism (acquired) (ICD-10 - E03.9) - Clinically euthyroid. On stable dose of Synthroid. No changes in symptoms but still reports ongoing fatigue therefore will not decrease dose based on recent TSH in 12/2023. - discussed with patient, will repeat labs, thyroid panel today 05/13/2024 Hypertension, essential (ICD-10 - I10) Good blood pressure control. No changes in plan monitoring renal function on CMP today 10/28/2024 Panlobular emphysema (ICD-10 - J43.1) Discussed smoking cessation, compliant with Trelegy 10/28/2024 Hypothyroidism (acquired) (ICD-10 - E03.9) Clinically appears euthyroid. Will check labs today. I will review labs personally. 01/01/2025 Breast cancer screening by mammogram (ICD-10 - Z12.31) 01/07/2025 Breast cancer screening by mammogram (ICD-10 - Z12.31) 08/05/2024 Hypothyroidism (acquired) (ICD-10 - E03.9) TSH low, T4 slightly elevated at 4.2 at most recent visit. With ongoing tremor, will repeat thyroid panel today to see if adjustment to synthroid needs to be made. 08/05/2024 Tremor (ICD-10 - R25.1) intermittent left hand tremor that isn't distressing but patient has noted it over the past few weeks. free T4 elevated at last visit could explain new tremor, will also order magnesium, b12, and bmp to look at other electrolytes for potential causes. 10/28/2024 Hyperlipemia, idiopathic familial (ICD-10 - E78.5) 05/13/2024 Nicotine dependence, cigarettes, uncomplicated (ICD-10 - F17.210) - Has quit smoking. Remains on Wellbutrin. - Discussed ongoing strategies to remain stopped and congratulated patient - continue wellbutrin as below 04/08/2024 Hypertension, essential (ICD-10 - I10) Good blood pressure control. No changes in plan 05/13/2024 Chronic fatigue (ICD-10 - R53.82) - reports ongoing for one year, no changes in finances, familial losses - has improved some since starting wellbutrin for smoking cessation, continues on thyroid supplementation - had borderline low Vitamin B12 in past, reports taking oral supplements but may be ineffective - will increase to 300 mg Wellbutrin, continue current dose Levothyroxine, and start on Vitamin B12 injections - will follow up Vitamin B12 levels on labs at next follow up 10/28/2024 Hypertension, essential (ICD-10 - I10) 04/08/2024 Nicotine dependence, cigarettes, uncomplicated (ICD-10 - F17.210) Has quit smoking. Has been out for 2 weeks. Remains on Wellbutrin. Discussed ongoing strategies to remain stopped and congratulated patient 05/13/2024 Healthcare maintenance (ICD-10 - Z00.00) - Mammogram and LDCT chest UTD, both negative in 12/2023, repeat due in 1 year - last colonoscopy 2015, has history of tubular adenoma and hyperplastic polyps, patient states she had more recently, will follow up if she finds records, if not repeat would be due - discussed and reviewed medicare wellness form, no immediate concerns, continues to feel fatigue and chronic pain but independent in ADLs, wears seatbelt, no safety concerns at home. is health care surrogate 10/28/2024 Type 2 diabetes mellitus with other specified complication (ICD-10 - E11.69) 04/08/2024 Immunization(s) administered (ICD-10 - Z23) 05/13/2024 Vitamin B12 deficiency (ICD-10 - E53.8) 10/28/2024 COPD with exacerbation (ICD-10 - J44.1) Treat aggressively as noted given the resumption of her smoking issues 05/13/2024 Immunization(s) administered (ICD-10 - Z23) - RSV vaccination administered today, tolerated well with no immediate side effects - UTD on other vaccinations at this time 10/28/2024 Vitamin B12 deficiency (ICD-10 - E53.8) Recheck labs, see if she needs more therapeutic intervention 10/28/2024 Encounter for immunization (ICD-10 - Z23) Due for Tdap, this was given today Plan Of Treatment Pending Test Test Name Order Date X ray : Chest 06/25/2013 Sleep Study 12/10/2018 Mammogram : Bilateral 01/01/2025 H-ALK PHOS ISOENZYMES (FRACTIONATED) H-MISCELLANEOUS TEST 06/29/2015 C-TSH 03/11/2019 Pulmonary Function Test- Complete 2023 M-Complete Blood Count Auto Diff 018 M-Comprehensive Metabolic Panel 02/04/20 M-Lipid Panel 02/03/2018 M-Thyroid Stimulating Hormone 02/03/2018 M-Vitamin B12 03/02/2021 M-Vitamin D 25 Hydroxy 03/02/2021 M-Vitamin D 25 Hydroxy 03/23/2020 Next Appt Details Provider Name:Brien Rojas, 02/03/2025 10:45:00 AM, [address], [place], [address], Insurance Providers Payer Name Payer Address Payer Phone Subscriber Number Group Number Insured Name Patient Relationship to Insured Coverage Start Date Coverage End Date [place] [address] [place] [address] [id number] Mendham, Indira Self - patient is the insured [address] [phone] [id number] Servando, Indira Self - patient is the insured [employer] [address] [place] [address] [address] [place] [address] [phone] ACL Servando, Indira Self - patient is the insured Medications Administered Medication Instructions Date of Administration Dosage Notes Ceftriaxone 500 05/17/2014 500 mg Ceftriaxone 500 06/15/2015 500 mg Ceftriaxone 500 04/05/2017 500 mg Dexamethasone 4mg Injection 09/09/2021 4 mg Kenalog 40mg 03/21/2017 40 mg Kenalog 40mg 04/05/2017 40 mg Kenalog 05/17/2014 1 mL Kenalog 09/15/2014 1 mL Kenalog 06/15/2015 1 mL Kenalog 12/05/2015 1 mL Ceftriaxone 250 09/09/2021 250 mg Ceftriaxone 250 09/09/2021 250 mg Bicillin CR (adult dose) 12/05/2015 1.2 units Medical (General) History Medical History History ICD Code hyperlipidemia anxiety hypertension endometriosis colonoscopy June 2015 - tubular adeno ma Tobacco use disorder Z72.0 Moderate osteopenia on DEXA 12/11 - rx [facility] arted - repeated 04/14 and stable Normal mammogram 08/14 and 10/2022 and 12/23 4 Macular degeration left eye Covid 19 diabetes Normal LDCT 02/12 and normal 12/2023 Covid 19 Surgical History Surgery Date(Month/Year) vaginal partial hysterectomy 01/1985 left breast bx-benign 1990 D&C 11/1984 inj in lt eye for macular degeneration 0 11/25/2018 inj in lt eye for macular degeneration 0 06/2019 colonoscopy 05/24/2021 Hospitalization History Reason Date(Month/Year) reaction 03/2021 hysterectomy 1985
--- NOTE | 2025-01-11 18:48 | PC.NURSE ---
DR GAN AT BEDSIDE
--- NOTE | 2025-01-11 18:50 | XR_ITS ---
PROCEDURE INFORMATION: Exam: XR Chest Exam date and time: 01/11/2025 7:18 PM Age: 69 years old Clinical indication: Cough; Additional info: Cough SOB TECHNIQUE: Imaging protocol: Radiologic exam of the chest. Views: 1 view. COMPARISON: CT LUNG SCREENING 01/06/2024 1:40 PM FINDINGS: Lungs: Right upper lobe calcified nodule compatible with prior granulomatous process. No consolidations. Pleural spaces: Unremarkable. No pleural effusion. No pneumothorax. Heart/Mediastinum: Unremarkable. No cardiomegaly. Bones/joints: Unremarkable. IMPRESSION: No acute findings.
--- NOTE | 2025-01-11 18:58 | HMH.EDGENADL ---
Discharge Plan Disposition Patient Disposition: Home, Self-Care Prescriptions Prescriptions: New prednisone 50 mg tablet 50 mg PO DAILY 5 Days Qty: 5 0RF doxycycline hyclate 100 mg capsule 100 mg PO BID 7 Days Qty: 14 0RF No Action bupropion HCl 300 mg tablet extended release 24 hr 300 mg PO ONCE Patient Comments: TAKE 1 TABLET BY MOUTH EVERY 24 HOURS levothyroxine 75 mcg tablet 75 mcg PO DAILY Qty: 60 3RF aspirin [Adult Aspirin Regimen] 81 mg tablet,delayed release (DR/EC) 81 mg PO DAILY metformin 500 mg tablet 500 mg PO BID Patient Comments: TAKE 1 TABLET BY MOUTH TWICE DAILY meloxicam 15 mg tablet 15 mg PO DAILY Patient Comments: TAKE 1 TABLET BY MOUTH EVERY DAY levothyroxine [Synthroid] 100 mcg tablet 100 mcg PO DAILY Qty: 30 11RF Rx Instructions: Take 1 tablet by mouth daily atorvastatin 40 MG tablet 40 mg PO HS alendronate 35 MG tablet 35 mg PO WEEKLY paroxetine HCl 30 MG tablet 30 mg PO DAILY fluticasone furoate-vilanterol 200-25 mcg/dose blister with device 1 ea inhalation DAILY PRN (Reason: COPD) Referrals Follow up/Referrals: Brien Rojas MD [Primary Care Provider, Internal Medicine] - See instructions Activity Restrictions/Add. Instructions Additional Instructions/Restrictions: Please use your inhaler that was provided to you as needed for wheezing 3 puffs every 3 hours. Please take medications as prescribed. At this time it was felt you are safe to be discharged home. If new or worsening symptoms please do not hesitate to return the emergency department. Please follow-up with your family doctor later this week to ensure things are headed in the right direction. Clinical Impressions Clinical Impression: Acute exacerbation of chronic obstructive pulmonary disease Print Language Print Language: Polish Discharge ED Provider: Lio Santana General Adult HPI General Chief complaint: Upper Respiratory Infection Stated complaint: no energy,runny nose,off balance,no appitite Time Seen by Provider: 01/11/25 18:30 Mode of Arrival: Ambulatory Source of Information: Patient Description of Symptoms (Recalled from ER Triage Doc. by RN): PT REPORTS RUNNY NOSE, DECREASED APPETITE, FEVER, COUGH AND FEELING OFF BALANCE SINCE SATURDAY. History of Present Illness HPI narrative: Patient is 69-year-old female with past medical history of COPD not on nasal cannula at home who presents emergency department for evaluation of cough and shortness of breath. She has had generalized weakness, no overt reports of chest pain. Positive sick contacts at home. Due to her persistent symptoms she presents here for continued evaluation. No abdominal pain reported. Please note that above description of symptoms, in this electronic medical record under categorization of recalled from ER triage doctor by RN are reflective of an initial nursing assessment, however, is not reflective of my full history and physical exam that was personally taken and clarified. Consequentially, this preceding description of symptoms, which may include the patient's categorized chief complaint in the EMR, do not reflect my personal clinical impression, and the ultimate description of history of present illness and patient stated complaints should be deferred to this section of the note. Unless stated otherwise or congruent with this section of the note, additional signs, symptoms, or incongruence should be interpreted as inaccurate with my clinical impression. Related Data Home Medications ?Medication ?Instructions ?Recorded ?Confirmed alendronate 35 mg tablet 35 mg PO WEEKLY Osteoporosis 03/29/21 09/08/24 atorvastatin 40 mg tablet 40 mg PO HS High cholesterol 03/29/21 09/08/24 paroxetine HCl 30 mg tablet 30 mg PO DAILY Depression 03/29/21 09/08/24 aspirin 81 mg tablet,delayed 81 mg PO DAILY 07/25/21 09/08/24 release (Adult Aspirin Regimen) fluticasone furoate 200 1 ea inhalation DAILY PRN COPD 07/18/22 09/08/24 mcg-vilanterol 25 mcg/dose inhalation powder metformin 500 mg tablet 500 mg PO BID 07/18/22 09/08/24 meloxicam 15 mg tablet 15 mg PO DAILY 07/03/23 09/08/24 bupropion HCl 300 mg 24 hr tablet, 300 mg PO ONCE 09/08/24 09/08/24 extended release Previous Rx's ?Medication ?Instructions ?Recorded levothyroxine 100 mcg tablet 100 mcg PO DAILY #30 tabs 08/01/23 (Synthroid) levothyroxine 75 mcg tablet 75 mcg PO DAILY #60 tabs 09/08/24 doxycycline hyclate 100 mg capsule 100 mg PO BID copd exacerbation 7 01/11/25 days #14 caps prednisone 50 mg tablet 50 mg PO DAILY copd exacerbation 5 01/11/25 days #5 tabs Allergies Allergy/AdvReac Type Severity Reaction Status Date / Time oliverio Allergy Severe Other Uncoded 09/08/24 11:30 [facility] Disclaimer: The information contained in this section may have been updated after the patient was seen, as this information can be updated by other users. Surgical History (Updated 09/08/24 @ 11:32 by KIRAN Stokes) H/O partial thyroidectomy Social History Smoking Status: Current every day smoker tobacco type: cigarettes packs per day: 1 alcohol intake: current alcohol intake frequency: holidays/special occasions only substance use type: denies use current occupational status: retired Travel in the last 8 weeks?: None household members: spouse housing: house caffeine: Yes Have you lived/traveled outside [place] in past 30 days?: No Contact w/someone who lives/traveled outside [place] past 30 days?: No Exposure to someone with infectious disease in past 14 days?: No Do you have a fever (greater than 100.4 F or 38 C)?: No Have you tested positive for COVID-19?: No Exposed to someone with COVID-19 in past 14 days?: No Do you have a sore throat?: No Do you have a cough?: No Do you have any weakness?: No Do you have any diarrhea?: No Are you experiencing any unusual bleeding?: No Do you have any muscle aches/pain?: No Do you have any abdominal pain?: No Are you experiencing loss of taste or smell?: No Other Medical History Have you received the Flu Vaccine for this season: Yes Have you received the Pneumonia Vaccine: Yes ROS Obtained: Yes Systems reviewed as appropriate & no additional complaints except as documented Physical Exam General General appearance: alert and in no apparent distress Head Head exam: atraumatic and normocephalic Eye Eye exam: Present PERRL and EOMI ENT ENT exam: Present mucous membranes moist Neck Neck exam: Present normal inspection Chest Chest inspection: Present normal inspection and symmetric chest wall rise Respiratory Respiratory exam: Present wheezes (Mild expiratory phase wheezes bilaterally); Absent normal lung sounds bilaterally or respiratory distress Cardiovascular Cardiovascular exam: Present regular rate and normal rhythm Abdominal Exam Abdominal exam: Present soft; Absent tenderness Extremities Exam Extremities exam: Present normal inspection Neurological Exam Neurological exam: Present alert Psychiatric Psychiatric exam: Present normal affect Skin Skin exam: Present warm and dry Medical Decision Making Medical Records Screening: Per USPSTF and CDC recommendations, given the prevalence of disease in our region, it is our hospital?s policy to screen for HIV and viral Hepatitis for all patients aged 18 and over and those with ongoing risk factors. Hoang Inquiry Pt receiving controlled substance: No Vital Signs: 01/11/25 17:28 Temperature 97.8 F Temperature Source Oral Pulse Rate [Radial] 89 Respiratory Rate 18 Blood Pressure [Left Arm] 143/54 H Blood Pressure Mean [Left Arm] 83 Blood Pressure Source [Left Arm] Automatic Cuff Blood Pressure Position [Left Arm] Sitting 02 Sat by Pulse Oximetry 98 Oxygen Delivery Method Room Air Lab Data Lab Results 01/11/25 19:10: WBC 5.1, RBC 4.90, Hgb 13.7, Hct 42.1, MCV 85.9, MCH 28.0, MCHC 32.5, RDW 14.4, Plt Count 276, MPV 9.9, Neut % (Auto) 59.2, Lymph % (Auto) 24.4, [place] % (Auto) 15.6 H, Eos % (Auto) 0.2, Baso % (Auto) 0.2, Neut # (Auto) 3.0, Lymph # (Auto) 1.2, [place] # (Auto) 0.8, Eos # (Auto) 0.0, Baso # (Auto) 0.0, Sodium 138, Potassium 3.7, Chloride 102, Carbon Dioxide 28, Anion Gap 11.7, BUN 19 H, Creatinine 0.90, Estimated Creat Clear 43, Estimated GFR 62, Est GFR ( Amer) 75, Glucose 97, Calcium 10.2, Total Bilirubin 0.6, AST 37 H, ALT 22, Alkaline Phosphatase 111, Troponin I < 0.01, Total Protein 7.9, Albumin 4.6, Globulin 3.3 H, Albumin/Globulin Ratio 1.4, HCV Ab FINA w/Rflx PCR Qn Negative, HIV Ag/Ab Combo Qual Negative 01/11/25 19:10 01/11/25 19:10 Orders (Tests/Meds): ED MEDICATIONS Discontinued Medications Generic Name Dose Route Start Last Admin Trade Name Freq PRN Reason Stop Dose Admin Albuterol/Ipratropium 6 ml 01/11/25 18:50 01/11/25 19:46 Ipratropium/Albuterol 3 Ml Neb IH 01/11/25 18:51 6 ml ONCE ONE Administration Doxycycline Hyclate 100 mg 01/11/25 18:51 01/11/25 19:46 Doxycycline Hycl 100 Mg Tablet PO 01/11/25 18:52 100 mg ONCE ONE Administration Methylprednisolone Sodium Succinate 125 mg 01/11/25 18:50 01/11/25 19:45 Methylprednisolone Sod Succ 125mg Vial IV 01/11/25 18:51 125 mg ONCE ONE Administration ORDERS Category Date Time Status CXR --portable [XR chest portable] Stat Exams 01/11/25 18:50 Completed CBC w/Auto Diff [Complete Blood Count Auto Diff] Stat Lab 01/11/25 19:10 Completed CMP [Comprehensive Metabolic Panel] Stat Lab 01/11/25 19:10 Completed HIV Combo Stat Lab 01/11/25 19:10 Completed Hepatitis C Ab Qual. W/ RFX Stat Lab 01/11/25 19:10 Completed Rapid PCR Covid and Flu A/B Stat Lab 01/11/25 18:42 Received Trop I [Troponin I] Stat Lab 01/11/25 19:10 Completed ECG Data Tracing #1: Independently interpreted by me rate is 81, rhythm is regular, axis is normal, no ST elevation in anatomical contiguous leads, QTc 412 Medical Decision Narrative: In summary patient is a 69-year-old female with past medical history of scrota above who presents emergency department for evaluation of shortness of breath and cough. Patient is hemodynamically stable nontoxic-appearing but normal, afebrile. Based on history and physical exam I suspect she is having a mild to moderate COPD exacerbation. She has decent air movement however does have x-ray phase wheezes. Workup will be conducted with hematologic labs chest x-ray EKG single troponin. Given that she has good air movement and appears well VBG will be deferred at this time. Initial inventions include DuoNebs x 2, steroids, doxycycline. Initial work reviewed by me hematologic labs are nonactionable no significant leukocytosis no transfusable anemia, no ROBERTO or critical electrolyte abnormality initial troponin undetectably low. Chest x-ray informally interpreted by me, no acute lobar opacities or large hemothorax. Formal read shows no acute findings. Upon repeat evaluation patient was resting in bed comfortably on room air no significant respiratory distress and is appropriate for outpatient management at this time will be discharged with a course of steroids and doxycycline he was given return precautions. Albuterol inhaler and spacer provided before discharge. Critical Care Critical Care Time Critical Care Time: No
--- NOTE | 2025-01-11 19:16 | ECG_ITS ---
APPROVED REPORT Exam: Resting ECG HR:81 bpm ECG Measurements Heart Rate 81 AXES RI 161 P 67 QRSd 102 QRS 6 QT 374 T 49 QTc 412 Conclusion SINUS RHYTHM NONSPECIFIC ST & T-WAVE ABNORMALITY BORDERLINE ECG UNCONFIRMED REPORT Electronically signed by : JAY CA, 01/13/2025 01:22:29
[2025-01-11 19:19] LABS: Hematocrit 42.1 % (37.0-47.0); Hemoglobin 13.7 g/dL (12.2-16.2); Immature Granulocytes % 0.4 %; Mean Corpuscular HGB Conc 32.5 g/dL (31.8-35.4); Mean Corpuscular Hemoglobin 28.0 pg (27.0-31.2); Mean Corpuscular Volume 85.9 fl (81-99); Nucleated Red Blood Cells % 0 %; Platelet Count 276 K/mm3 (142-424); Red Blood Count 4.90 M/mm3 (4.20-5.40); Red Cell Distribution Width-SD 45.1 fL; White Blood Count 5.1 K/mm3 (4.8-10.8)
[2025-01-11 19:26] LABS: Albumin Level 4.6 g/dl (3.5-5.0); Chloride 102 mmol/L (98-107); Potassium 3.7 mmoL/L (3.5-5.1); Sodium 138 mmol/L (136-145)
[2025-01-11 19:29] LABS: Alanine Aminotransferase 22 U/L (12-78); Albumin/Globulin Ratio 1.4 (1.1-1.8); Alkaline Phosphatase 111 U/L (38-126); Anion Gap 11.7 mEq/L (5-15); Aspartate Amino Transferase 37 U/L (14-36); Bilirubin,Total 0.6 mg/dl (0.2-1.3); Blood Urea Nitrogen 19 mg/dl (7-17); Carbon Dioxide 28 mmol/L (22.0-30.0); Creatinine Clearance Estimated 43 mL/min (50-200); Creatinine,Serum 0.90 mg/dl (0.52-1.04); Estimated Glomerular Filt Rate 62 ml/min (>60); GFR (African American) 75 ML/MIN (>60); Globulin 3.3 g/dL (1.3-3.2); Total Protein,Serum 7.9 g/dl (6.3-8.2)
[2025-01-11 19:30] LABS: Calcium 10.2 mg/dl (8.4-10.2); Glucose 97 mg/dl (74-100)
[2025-01-11 19:43] LABS: Troponin I < 0.01 ng/ml (0.00-0.034)
[2025-01-11] MEDS: METHYLPREDNISOLONE SOD SUCC 125MG VIAL 125 MG IV (19:45)
[2025-01-11] MEDS: IPRATROPIUM/ALBUTEROL 3 ML NEB 6 ML IH (19:46)
[2025-01-11] MEDS: DOXYCYCLINE HYCL 100 MG TABLET PO (19:46)
[2025-01-11 19:54] LABS: Coronavirus 19, PCR Not Detected (NotDetected); Influenza B, PCR Not Detected (NotDetected)
[2025-01-11 20:19] LABS: Hepatitis C Ab Qual. W/ RFX NEGATIVE (Negative)
[2025-01-11 20:55] VITALS: BP 132/66; PULSE 90; RESP 18; TEMP 36.7; O2SAT 97
--- NOTE | 2025-01-11 20:55 | PC.NURSE ---
IV discontinued. Catheter tip intact. Bleeding controlled.
[2025-01-11 21:02] LABS: Influenza A, PCR Detected (NotDetected)
--- NOTE | 2025-01-12 00:11 | PC.NURSE ---
Attempted to call pt regarding Flu A dx and change in medication. Left message & will try again in AM.
== END 2025-01-11 20:56 | disposition home or self-care (01) ==
PROVIDERS: Emergency Provider Emergency Medicine; PCP Internal Medicine Adolescent Medicine
DX: J44.1 Chronic obstructive pulmonary disease with (acute) exacerbation (principal); E03.9 Hypothyroidism, unspecified; F17.210 Nicotine dependence, cigarettes, uncomplicated
CPT/HCPCS: 71045; 80053; 84484; 85025; 86803; 87389; 87636; 93005; 96372; 96374; 99284; J2919

== ENCOUNTER 2025-02-03 11:56 | Outpatient (CLI) | payer MEDICARE, OTHER, SELFPAY ==
--- OUTSIDE RECORDS SUMMARY | 2025-01-01 11:57 | XMS_ITS ---
Author Organization [facility] Address [address] [place] [address] Care Team Providers Care Weather Stripper Name Role Phone Brien Rojas Primary Care Provider REASON FOR VISIT mammogram order Encounters Encounter Location Date Provider Diagnosis [facility] [address] [place] [address] 01/01/2025 Brien Rojas Breast cancer screening by mammogram Z12.31 Assessments Encounter Date Diagnosis (ICD Code) Assessment Notes Treatment Notes Treatment Clinical Notes Section Notes 01/01/2025 Breast cancer screening by mammogram (ICD-10 - Z12.31) Plan Of Treatment Pending Test Test Name Order Date Mammogram : Bilateral 01/01/2025 Next Appt Details Provider Name:Brien Rojas, 02/10/2025 11:45:00 AM, [address], [address], [place], [address], Progress Notes * Cecy ALB:1955 (69 yo F)Acc No.[id number]:01/01/2025 Patient: Dejan LYDIA Indira :1955 A ge:69 Y S ex:Female Address:[facility] [place], [address] Subjective: * Chief Complaints: * M ammogram order * Medical History: * Surgical History: * Hospitalization/Major Diagno stic Procedure: * Medications: Objective: * Vitals: * Physical Examination: Assessment: * Assessment: 1. B reast cancer screening by mammogram - Z12.31 Plan: * Treatment: * Procedure Codes: * true * Date: Generated for Kristen rodriguez/Marlena/Giselle on: 0 02/03/2025 12:00 PM EDT
--- OUTSIDE RECORDS SUMMARY | 2025-01-07 19:13 | XMS_ITS ---
Author Organization [facility] Address [address] [place] [address] Care Team Providers Care Faro Dealer Name Role Phone Brien Rojas Primary Care Provider REASON FOR VISIT New Referral Request Encounters Encounter Location Date Provider Diagnosis [facility] [address] [place] [address] 01/07/2025 Brien Rojas Breast cancer screening by mammogram Z12.31 Assessments Encounter Date Diagnosis (ICD Code) Assessment Notes Treatment Notes Treatment Clinical Notes Section Notes 01/07/2025 Breast cancer screening by mammogram (ICD-10 - Z12.31) Plan Of Treatment Pending Test Test Name Order Date Mammogram : Bilateral 01/07/2025 Next Appt Details Provider Name:Brien Rojas, 02/10/2025 11:45:00 AM, [address], [address], [place], [address], Progress Notes * Cecy ALB:1955 (69 yo F)Acc No.[id number]:01/07/2025 Patient: Dejan LYDIA Indira :1955 A ge:69 Y S ex:Female Address:[facility] [place], [address] Subjective: * Chief Complaints: * N ew Referral Request * Medical History: * Surgical History: * Hospitalization/Major Diagno stic Procedure: * Medications: Objective: * Vitals: * Physical Examination: Assessment: * Assessment: 1. B reast cancer screening by mammogram - Z12.31 (Primary) Plan: * Treatment: * Procedure Codes: * true * Date: Generated for Kristen rodriguez/Marlena/Jayaitting on: 0 02/03/2025 12:00 PM EDT
--- OUTSIDE RECORDS SUMMARY | 2025-02-03 12:00 | XMS_ITS | Patient Health Record ---
Author Organization [facility] Address [address] [place] [address] Care Team Providers Care Semaphore Operator Name Role Phone Brien Rojas Primary Care Provider Migration, Provider Unavailable Unavailable Allergies No Known Allergies Results Component Value Reference Range Notes VITAMIN B12 (927) Reviewed date:08/07/2024 02:01:49 PM Interpretation: Performing Lab:[facility] [address], myDrugCostsQwysMI[address] Rafael Lin Notes/Report: NON-FASTING; NON-FASTING; NON-FASTING; NON-FASTING VITAMIN B12 2248 355-6101 pg/mL CBC (INCLUDES DIFF/PLT) (639 9) Reviewed date:05/14/2024 02:53:29 PM Interpretation: Performing Lab:[facility] [address], myDrugCostsSnhnZZ[address] Rafael Lin Notes/Report: WHITE BLOOD CELL COUNT [...] MPV 11.5 7.5-12.5 fL ABSOLUTE NEUTROPHILS 4348 9685-1452 cells/uL ABSOLUTE LYMPHOCYTES 3445 570-4176 cells/uL ABSOLUTE MONOCYTES 503 200-950 cells/uL ABSOLUTE EOSINOPHILS 147 15-500 cells/uL ABSOLUTE BASOPHILS 20 0-200 cells/uL NEUTROPHILS 64.9 LYMPHOCYTES 25.1 MONOCYTES 7.5 EOSINOPHILS 2.2 BASOPHILS 0.3 MAGNESIUM (622) Reviewed date:08/07/2024 02:01:49 PM Interpretation: Performing Lab:[facility], [facility]Costse[address], [place] KillCvyzWE[address] Rafael Lin Notes/Report: NON-FASTING; NON-FASTING; NON-FASTING; NON-FASTING MAGNESIUM 2.1 1.5-2.5 mg/dL BASIC METABOLIC PANEL (59064 ) Reviewed date:08/07/2024 02:01:49 PM Interpretation: Performing Lab:[facility] [address], myDrugCostsQjtdCQ[address] Rafael Lin Notes/Report: NON-FASTING; NON-FASTING; NON-FASTING; NON-FASTING [...] 8.8 8.6-10.4 mg/dL COMPREHENSIVE METABOLIC PANE L (62264) Reviewed date:05/14/2024 02:53:29 PM Interpretation: Performing Lab:[facility], [facility] [address], myDrugCostsLsddOV[address] Rafael Lin Notes/Report: GLUCOSE 85 65-99 mg/dL [...] 17 10-35 U/L ALT 13 6-29 U/L THYROID PANEL WITH TSH (7444 ) Reviewed date:08/07/2024 02:01:49 PM Interpretation: Performing Lab:[facility] [address], myDrugCostsQpfiDX[address] Rafael Lin Notes/Report: NON-FASTING; NON-FASTING; NON-FASTING; NON-FASTING T3 UPTAKE 33 22-35 % T4 (THYROXINE), TOTAL 14.5 5.1-11.9 mcg/dL FREE T4 INDEX (T7) 4.8 1.4-3.8 TSH 0.02 0.40-4.50 mIU/L THYROID PANEL WITH TSH (7444 ) Reviewed date:05/14/2024 02:53:28 PM Interpretation: Performing Lab:[facility] [place], [facility] CenterQggkAR[address] Rafael Lin Notes/Report: T3 UPTAKE 31 22-35 % T4 (THYROXINE), TOTAL 13.7 5.1-11.9 mcg/dL FREE T4 INDEX (T7) 4.2 1.4-3.8 TSH 0.06 0.40-4.50 mIU/L VITAMIN B12/FOLATE, SERUM PA KRISTIN (2487) Reviewed date:10/30/2024 08:15:44 AM Interpretation: Performing Lab:[facility] [address], [place] HxpsQK[address] Rafael Lin Notes/Report: NON-FASTING; NON-FASTING; NON-FASTING; NON-FASTING; NON-FAST FASTING:YES FASTING: YES VITAMIN B12 334 355-8293 pg/mL FOLATE, SERUM 5.9 Reference Range Low: <3.4 Borderline: 3.4-5.4 Normal: >5.4 CBC (INCLUDES DIFF/PLT) (639 9) Reviewed date:10/30/2024 08:15:44 AM Interpretation: Performing Lab:CB, [facility]-myDrugCostse[address], [facility] CenterZptaUG[address] Rafael Lin Notes/Report: NON-FASTING; NON-FASTING; NON-FASTING; NON-FASTING; [...] MPV 10.4 7.5-12.5 fL ABSOLUTE NEUTROPHILS 7160 4866-3387 cells/uL ABSOLUTE LYMPHOCYTES 2090 850-3900 cells/uL ABSOLUTE MONOCYTES 540 200-950 cells/uL ABSOLUTE EOSINOPHILS 180 15-500 cells/uL ABSOLUTE BASOPHILS 30 0-200 cells/uL NEUTROPHILS 71.6 LYMPHOCYTES 20.9 MONOCYTES 5.4 EOSINOPHILS 1.8 BASOPHILS 0.3 COMPREHENSIVE METABOLIC PANE L (16819) Reviewed date:10/30/2024 08:15:44 AM Interpretation: Performing Lab:[facility], [facility]se[address], [facility] CenterVbgjKG[address] Rafael Lin Notes/Report: NON-FASTING; NON-FASTING; NON-FASTING; NON-FASTING; [...] Reviewed date:10/30/2024 08:15:44 AM Interpretation: Performing Lab:[facility], [facility], [facility] CenterMokbET[address] Rafael Lin Notes/Report: NON-FASTING; NON-FASTING; NON-FASTING; NON-FASTING; [...] LDL-C. Zeus WHITAKER et al. RICHAR. 2013;310(19): 3538-8455 ([email or web address]) CHOL/HDLC RATIO 3.3 <5.0 (calc) NON HDL CHOLESTEROL 106 <130 mg/dL (calc) For patients with diabetes plus 1 major ASCVD risk factor, treating to a non-HDL-C goal of <100 mg/dL (LDL-C of <70 mg/dL) is considered a therapeutic option. THYROID PANEL WITH TSH (7444 ) Reviewed date:10/30/2024 08:15:44 AM Interpretation: Performing Lab:CB, [facility] [address], [place] MarchSbjvJW[address] Rafael Lin Notes/Report: NON-FASTING; NON-FASTING; NON-FASTING; NON-FASTING; NON-FAST FASTING:YES FASTING: YES T3 UPTAKE 27 22-35 % T4 (THYROXINE), TOTAL 10.6 5.1-11.9 mcg/dL FREE T4 INDEX (T7) 2.9 1.4-3.8 TSH 2.53 0.40-4.50 mIU/L Reason For Referral No Information Medications Medication SIG (Take, Route, Frequency, Duration) Notes Start Date End Date Status Meloxicam 15 MG 1 tab(s) orally once a day; Duration: 30 days Active Trelegy Ellipta 100-62.5-25 MCG/ACT INHALE 1 PUFF BY MOUTH DAILY; Duration: 30 days Active Atorvastatin Calcium 40 MG TAKE 1 TABLET BY MOUTH DAILY AT BEDTIME; Duration: 90 Active ZyrTEC Allergy 10 MG 1 tab(s) orally once a day Active Ciclodan 8 % 1 diana applied topically twice daily; Duration: 24 days Active ASPIR-LOW 81 MG 1 TAB(S) ORALLY ONCE A DAY; Duration: 30 DAYS *Please review for potential replacement for e-prescription and drug interaction check* Active metFORMIN HCl 500 MG TAKE 1 TABLET BY MOUTH TWICE DAILY; Duration: 30 Active Alendronate Sodium 35 MG 1 tab(s) orally once a week; Duration: 84 Active Calcium 600 + D 600 MG-800 INTL UNITS 1 TAB(S) ORALLY 2 TIMES A DAY *Please review and pick correct strength-formulatio n from [employer] aka [employer]ize options. If intended option is not shown, discontinue and re-order from Quick Search* Active Synthroid 75 MCG 1 tab(s) orally once a day; Duration: 90 days Active buPROPion HCl ER (XL) 300 MG 1 tab(s) orally every 24 hours; Duration: 90 days Active Immunizations Vaccine Route Administration Date Status Comme nts Arexvy IM Intramuscular 05/13/2024 Administered Boostrix IM Intramuscular 10/28/2024 Administered Covid Moderna Unknown 07/01/2020 Administered Covid Moderna Unknown 08/02/2020 Administered Flublok IM Intramuscular 03/23/2020 Administered FLUZONE 6MO - OLDER IM Intramuscular 03/11/2019 Administer ed Fluzone High Dose IM Intramuscular 03/02/2021 Administered Fluzone High Dose IM Intramuscular 04/23/2022 Administered Fluzone High Dose IM Intramuscular 04/29/2023 Administered Fluzone High Dose IM Intramuscular 04/08/2024 Administered Pneumovax 23 IM Intramuscular 03/02/2021 Administered Pneumovax-23 (pneumococccal vaccine polyvalent)2 years or older IM Intramuscular 08/06/2013 Administered Prevnar PCV-13 (Pneumococcal conjugate 13) IM Intramuscular 12/16/2019 Administered Prevnar PCV-20 (Pneumococcal conjugate 20) IM Intramuscular 04/23/2022 Administered SHINGRIX Unknown 2019 Administered SHINGRIX Unknown 02/19/2020 Administered Social History Tobacco Use: Social History [...] complication (E11.69) Active confirmed Problem Mixed hyperlipidemia (386063966) Mixed hyperlipidemia (E78.2) Active confirmed Problem Tobacco user (504679756) Nicotine dependence, cigarettes, uncomplicated (F17.210) Active confirmed Problem Panlobular emphysema (3034579) Panlobular emphysema (J43.1) Active confirmed Problem Acute exacerbation of chronic obstructive airways disease (205628074) COPD with exacerbation (J44.1) Active confirmed Problem Hypothyroidism (55240770) Hypothyroidism (acquired) (E03.9) Active confirmed Problem Chronic obstructive pulmonary disease (01912870) Asthma with COPD (J44.9) Active confirmed Problem Neuropathy (463517769) Neuropathy (G62.9) Active confirmed Problem Hyperlipidemia (46660795) Hyperlipemia, idiopathic familial (E78.5) Active confirmed Problem Essential hypertension (24835042) Hypertension, essential (I10) Active confirmed Problem Tubular adenoma of colon (286353416) Tubular adenoma of colon (D12.6) Active confirmed Problem Mammography abnormal (368927693) Abnormal mammogram of right breast (R92.8) Active confirmed Problem Recurrent falls (594597084) Frequent falls (R29.6) Active confirmed Problem Chronic fatigue syndrome (45525664) Chronic fatigue (R53.82) Active confirmed Problem Obstructive sleep apnea (91951830) Obstructive sleep apnea (G47.33) Active confirmed Problem Ataxia (52637409) Ataxia (R27.0) Active confirm ed Problem Sciatica (02015669) Right sided sciatica (M54.31) Active confirmed Problem Adult health examination (818053431) Healthcare maintenance (Z00.00) Active confirmed Problem Retinal hemorrhage (65558735) Retinal hemorrhage of left eye (H35.62) Active confirmed Problem Tobacco user (484876422) Nicotine dependence with current use (F17.200) Active confirmed Problem Type II diabetes mellitus without complication (122361889) New onset type 2 diabetes mellitus (E11.9) Active confirmed Vital Signs Heart Rate 100 /min 02/03/2025 Sitting: P: 83, SBP: 128, Standing: P: 100, SBP: 120 Temperature 98.0 degrees Fahrenheit 02/03/2025 Sitt ing: P: 83, SBP: 128, Standing: P: 100, SBP: 120 Blood pressure diastolic 72 mm Hg 02/03/2025 Sit ting: P: 83, SBP: 128, Standing: P: 100, SBP: 120 Height 5 ft 5 in in 02/03/2025 Sitting: P: 83, SBP: 128, Standing: P: 100, SBP: 120 Blood pressure systolic 110 mm Hg 02/03/2025 Sitt ing: P: 83, SBP: 128, Standing: P: 100, SBP: 120 Weight 157 lbs 02/03/2025 Sitting: P: 83, SBP: 128, Standing: P: 100, SBP: 120 BMI 26.12 kg/m2 02/03/2025 Sitting: P: 83, SBP: 128, Standing: P: 100, SBP: 120 Encounters Encounter Location Date Provider Diagnosis [facility] [address] [facility] [address] [place] [address] 09/26/2024 Provider Migration [facility] [address] [facility] [address] [place] [address] 02/03/2025 Brien Besson Dizziness R42 and Orthostatic hypotension I95.1 [facility] [address] [facility] [address] [place], [place] [address] 04/08/2024 Brien Besson Hypothyroidism (acquired) E03.9 ; Panlobular emphysema J43.1 ; Hypertension, essential I10 ; Nicotine dependence, cigarettes, uncomplicated F17.210 and Immunization(s) administered Z23 [facility] [address] [facility] [address] [place] [address] 05/13/2024 Brien Besson Hypothyroidism (acquired) E03.9 ; Hypertension, essential I10 ; Nicotine dependence, cigarettes, uncomplicated F17.210 ; Chronic fatigue R53.82 ; Healthcare maintenance Z00.00 ; Vitamin B12 deficiency E53.8 and Immunization(s) administered Z23 [facility] [address] [place] [address] 08/05/2024 Brien Besson Hypothyroidism (acquired) E03.9 and Tremor R25.1 [facility] [address] [place] [address] 10/28/2024 Brien Besson Hypothyroidism (acquired) E03.9 ; Panlobular emphysema J43.1 ; Hyperlipemia, idiopathic familial E78.5 ; Hypertension, essential I10 ; Type 2 diabetes mellitus with other specified complication E11.69 ; COPD with exacerbation J44.1 ; Vitamin B12 deficiency E53.8 and Encounter for immunization Z23 [facility] [address] [facility] [address] [place] [address] 03/04/2024 Brien Besson [facility] [address] [facility] [address] [place] [address] 05/14/2024 Brien Besson [facility] [address] [place] [address] 08/07/2024 Brien Besson [facility] [address] [place] [address] 01/01/2025 Brien Besson Breast cancer screening by mammogram Z12.31 [facility] [address] [place], [place] [address] 01/12/2025 Brien Rojas [facility] [address] [place], [place] [address] 01/07/2025 [facility] [address] [place], [place] [address] 01/07/2025 Brien Rojas Breast cancer screening by [...] plan monitoring renal function on CMP today 08/05/2024 Hypothyroidism (acquired) (ICD-10 - E03.9) TSH [...] at other electrolytes for potential causes. 10/28/2024 Hypothyroidism (acquired) (ICD-10 - E03.9) Clinically appears euthyroid. Will check labs today. I will review labs personally. 10/28/2024 Panlobular emphysema (ICD-10 - J43.1) Discussed smoking cessation, compliant with Trelegy 01/01/2025 Breast cancer screening by mammogram (ICD-10 - Z12.31) 01/07/2025 Breast cancer screening by mammogram (ICD-10 - Z12.31) 02/03/2025 Orthostatic hypotension (ICD-10 - I95.1) Did [...] 1 week here in the office. 02/03/2025 Dizziness (ICD-10 - R42) Etiology likely orthostatic hypotension, but has recently been on steroids and has stopped Paxil abruptly at last visit. However, patient has had steroids before and the Paxil should be washed out of her system. See plan for orthostatic hypotension and will follow up in a month. 10/28/2024 Hyperlipemia, idiopathic familial (ICD-10 - E78.5) 05/13/2024 Nicotine dependence, cigarettes, uncomplicated (ICD-10 - F17.210) - Has quit smoking. Remains on Wellbutrin. - Discussed ongoing strategies to remain stopped and congratulated patient - continue wellbutrin as below 04/08/2024 Hypertension, essential (ICD-10 - I10) Good blood pressure control. No changes in plan 04/08/2024 Nicotine dependence, cigarettes, uncomplicated (ICD-10 - F17.210) Has quit smoking. Has been out for 2 weeks. Remains on Wellbutrin. Discussed ongoing strategies to remain stopped and congratulated patient 10/28/2024 Hypertension, essential (ICD-10 - I10) 05/13/2024 Chronic fatigue (ICD-10 - R53.82) - [...] levels on labs at next follow up 05/13/2024 Healthcare maintenance (ICD-10 - Z00.00) - [...] given the resumption of her smoking issues 10/28/2024 Vitamin B12 deficiency (ICD-10 - E53.8) Recheck labs, see if she needs more therapeutic intervention 05/13/2024 Immunization(s) administered (ICD-10 - Z23) - RSV vaccination administered today, tolerated well with no immediate side effects - UTD on other vaccinations at this time 10/28/2024 Encounter for immunization (ICD-10 - Z23) [...] 03/23/2020 Next Appt Details Provider Name:Brien Rojas, 02/10/2025 11:45:00 AM, [address], [place], [address], Insurance Providers Payer Name Payer Address Payer Phone Subscriber Number Group Number Insured Name Patient Relationship to Insured Coverage Start Date Coverage End Date [place] [address] [place] [address] [id number] Indira Al Self - patient is the insured [facility] [address] [place] [address] [id number] Ind[place] Al Self - patient is the insured [employer] [address] [place] [address] [address] [place] [address] ACL ServandoIdnira Self - patient is the insured Medications [...] 06/15/2015 1 mL Kenalog 12/05/2015 1 mL Medical (General) History Medical History History ICD [...]
[2025-02-03 12:10] VITALS: BP 128/92; PULSE 83; RESP 18; TEMP 36.6; O2SAT 98
[2025-02-03] MEDS: LACTATED RINGERS 1000ML 1,000 ML 999 ML IV (12:10)
[2025-02-03 12:37] LABS: Hematocrit 40.3 % (37.0-47.0); Hemoglobin 12.9 g/dL (12.2-16.2); Immature Granulocytes % 0.3 %; Mean Corpuscular HGB Conc 32.0 g/dL (31.8-35.4); Mean Corpuscular Hemoglobin 27.4 pg (27.0-31.2); Mean Corpuscular Volume 85.6 fl (81-99); Nucleated Red Blood Cells % 0 %; Platelet Count 340 K/mm3 (142-424); Red Blood Count 4.71 M/mm3 (4.20-5.40); Red Cell Distribution Width-SD 48.2 fL; White Blood Count 7.3 K/mm3 (4.8-10.8)
[2025-02-03 12:49] LABS: Alanine Aminotransferase 19 U/L (12-78); Albumin Level 4.1 g/dl (3.5-5.0); Albumin/Globulin Ratio 1.6 (1.1-1.8); Alkaline Phosphatase 106 U/L (38-126); Anion Gap 8.6 mEq/L (5-15); Aspartate Amino Transferase 31 U/L (14-36); Bilirubin,Total 0.5 mg/dl (0.2-1.3); Blood Urea Nitrogen 23 mg/dl (7-17); Calcium 10.0 mg/dl (8.4-10.2); Carbon Dioxide 27 mmol/L (22.0-30.0); Chloride 109 mmol/L (98-107); Creatinine,Serum 0.90 mg/dl (0.52-1.04); Estimated Glomerular Filt Rate 62 ml/min (>60); GFR (African American) 75 ML/MIN (>60); Globulin 2.6 g/dL (1.3-3.2); Glucose 93 mg/dl (74-100); Potassium 3.6 mmoL/L (3.5-5.1); Sodium 141 mmol/L (136-145); Total Protein,Serum 6.7 g/dl (6.3-8.2)
[2025-02-03 13:09] LABS: Thyroid Stimulating Hormone 1.60 uIU/mL (0.465-4.68)
[2025-02-03 13:10] VITALS: BP 131/68; PULSE 80
[2025-02-03 13:44] LABS: Vitamin B12 838 pg/mL (239-931)
[2025-02-04 17:33] LABS: Folate 8.45 ng/mL
== END 2025-02-03 13:15 | disposition home or self-care (01) ==
LOC: INF 11:57
PROVIDERS: PCP Internal Medicine Adolescent Medicine; Visit Provider Internal Medicine Adolescent Medicine
DX: I95.9 Hypotension, unspecified (principal); E89.0 Postprocedural hypothyroidism
CPT/HCPCS: 80053; 82607; 82746; 84443; 85025; 96360; J7120

== ENCOUNTER 2025-02-24 13:21 | Outpatient (CLI) | payer MEDICARE, OTHER, SELFPAY ==
--- NOTE | 2025-02-24 13:24 | MM_ITS ---
PROCEDURE INFORMATION: Exam: MG Bilateral Screening 3D Mammography Exam date and time: 02/24/2025 1:30 PM Age: 69 years old Clinical indication: Screening examination TECHNIQUE: Imaging protocol: Bilateral Screening tomosynthesis and 2D mammography including computer-aided detection (CAD) when performed. COMPARISON: 1. MG MM DIG SCREENING MAMM BI W/CAD 01/06/2024 1:13 PM 2. MG MM DIG SCREENING MAMM BI W/CAD 11/01/2022 9:45 AM FINDINGS: MAMMOGRAPHY: Breast composition: There are scattered areas of fibroglandular density. Mass: No suspicious masses. Architectural distortion: None. Calcifications: No suspicious calcifications. Asymmetric density: None. Skin thickening: None. Axillary adenopathy: None. IMPRESSION: No mammographic evidence of malignancy. Annual screening is recommended unless otherwise clinically indicated. ASSESSMENT: BI-RADS Category 1: Negative.
== END 2025-02-24 23:59 | disposition home or self-care (01) ==
LOC: RAD 13:22
PROVIDERS: PCP Internal Medicine Adolescent Medicine; Visit Provider Internal Medicine Adolescent Medicine
DX: Z12.31 Encounter for screening mammogram for malignant neoplasm of breast (principal); R92.323 Mammographic fibroglandular density, bilateral breasts
CPT/HCPCS: 77063; 77067

== ENCOUNTER 2025-03-08 13:38 | Outpatient (CLI) | payer MEDICARE, OTHER, SELFPAY ==
--- OUTSIDE RECORDS SUMMARY | 2025-01-07 19:13 | XMS_ITS ---
Author Organization [facility] Address [address] [place] [address] Care Team Providers Care Inclusion Intern Name Role Phone Brien Rojas Primary Care Provider Results Component Value Reference Range Notes Mammogram : Bilateral Reviewed date:03/03/2025 03:48:36 PM Interpretation: Performing Lab: Notes/Report: REASON FOR VISIT New Referral Request Encounters Encounter Location Date Provider Diagnosis [facility] [address] [place] [address] 01/07/2025 Brien Rojas Breast cancer screening by mammogram Z12.31 Assessments Encounter Date Diagnosis (ICD Code) Assessment Notes Treatment Notes Treatment Clinical Notes Section Notes 01/07/2025 Breast cancer screening by mammogram (ICD-10 - Z12.31) Plan Of Treatment Next Appt Details Provider Name:Brien Rojas, 03/17/2025 09:45:00 AM, [address], [address], [place], [address], Progress Notes * Brad AL:1955 (69 yo F)Acc No.[id number]:01/07/2025 Patient: Dejan Indira FREEMAN :1955 A ge:69 Y S ex:Female [address] [place], [address] Subjective: * Chief Complaints: * N ew Referral Request * Medical History: * Surgical History: * Hospitalization/Major Diagno stic Procedure: * Medications: Objective: * Vitals: * Physical Examination: Assessment: * Assessment: 1. B reast cancer screening by mammogram - Z12.31 (Primary) Plan: * Treatment: * Procedure Codes: * true * Date: Generated for Kristen rodriguez/Marlena/Jayaitting on: 0 03/08/2025 01:43 PM EDT
--- OUTSIDE RECORDS SUMMARY | 2025-02-03 06:45 | XMS_ITS ---
Author Organization [facility] Address [address] [place] [address] Care Team Providers [employer] Name Role Phone Brien Rojas Primary Care Provider Allergies No Known Allergies Results Component Value Reference Range Notes M-Complete Blood Count Auto Diff Reviewed date:02/05/2025 11:00:53 AM Interpretation: Performing Lab: Notes/Report: WBC 7.3 4.8-10.8 K/mm3 RBC 4.71 4.20-5.40 M/mm3 HGB 12.9 12.2-16.2 g/dL HCT 40.3 37.0-47.0 % MCV 85.6 81-99 fl MCH 27.4 27.0-31.2 pg MCHC 32.0 31.8-35.4 g/dL RDW 15.4 11.5-17.5 % PLT 340 142-424 K/mm3 MPV 10.4 7.4-10.4 fl NE% 68.0 37.0-80.0 % LY% 22.7 10-50 % MO% 7.1 1.7-9.3 % EO% 1.6 0.1-12.0 % BA% 0.3 0.1-2.0 % NE# 5.0 1.8-7.8 K/mm3 LY# 1.7 0.7-4.5 K/mm3 MO# 0.5 0.1-1.0 K/mm3 EO# 0.1 0.0-0.4 Kmm3 BA# 0.0 0-0.2 K/mm3 RDW-SD 48.2 NRBC% 0 IG% 0.3 NRBC# 0 IG# 0.02 M-Comprehensive Metabolic Pa ramirez Reviewed date:02/05/2025 11:00:53 AM Interpretation: Performing Lab: Notes/Report: NA 141 136-145 mmol/L K 3.6 3.5-5.1 mmoL/L CL 109 98-107 mmol/L CO2 27 22.0-30.0 mmol/L GAP 8.6 5-15 mEq/L BUN 23 7-17 mg/dl CREATT 0.90 0.52-1.04 mg/dl GFRAA 75 >60 ML/MIN EGFR 62 >60 ml/min GLU 93 74-100 mg/dl CA 10.0 8.4-10.2 mg/dl BILIT 0.5 0.2-1.3 mg/dl AST 31 14-36 U/L ALT 19 12-78 U/L TP 6.7 6.3-8.2 g/dl ALB 4.1 3.5-5.0 g/dl GLOB 2.6 1.3-3.2 g/dL AGRATIO 1.6 1.1-1.8 ALP 106 38-126 U/L M-Thyroid Stimulating Hormon e Reviewed date:02/05/2025 11:00:53 AM Interpretation: Performing Lab: Notes/Report: TSH 1.60 0.465-4.68 uIU/mL REASON FOR VISIT 3 month follow up, was in the ER for COPD and flu A Medications Medication SIG (Take, Route, Frequency, Duration) Notes Start Date End Date Status Trelegy Ellipta 100-62.5-25 MCG/ACT INHALE 1 PUFF BY MOUTH DAILY; Duration: 30 days Active Synthroid 75 MCG 1 tab(s) orally once a day; Duration: 90 days Active buPROPion HCl ER (XL) 300 MG 1 tab(s) orally every 24 hours; Duration: 90 days Active ZyrTEC Allergy 10 MG 1 tab(s) orally once a day Active Ciclodan 8 % 1 diana applied topically twice daily; Duration: 24 days Active ASPIR-LOW 81 MG 1 TAB(S) ORALLY ONCE A DAY; Duration: 30 DAYS *Please review for potential replacement for e-prescription and drug interaction check* Active Alendronate Sodium 35 MG 1 tab(s) orally once a week; Duration: 84 Active Calcium 600 + D 600 MG-800 INTL UNITS 1 TAB(S) ORALLY 2 TIMES A DAY *Please review and pick correct strength-formulatio n from Medispan options. If intended option is not shown, discontinue and re-order from Quick Search* Active Meloxicam 15 MG 1 tab(s) orally once a day; Duration: 30 days Active Atorvastatin Calcium 40 MG TAKE 1 TABLET BY MOUTH DAILY AT BEDTIME; Duration: 90 Active metFORMIN HCl 500 MG TAKE 1 TABLET BY MOUTH TWICE DAILY; Duration: 30 Active Social History Tobacco Use: Social History Observation Description Date Details (start date - stop date) Former Smoker NA - NA Tobacco Control (Standard) Question Answer Notes Tobacco use: Former smoker How long has it been since you last smoked? 3-6 months Vital Signs Temperature 98.0 degrees Fahrenheit 02/04/20 25 Heart Rate 100 /min 02/03/2025 Blood pressure systolic 110 mm Hg 02/04/20 25 Blood pressure diastolic 72 mm Hg 025 Height 5 ft 5 in in 02/03/2025 Weight 157 lbs 02/03/2025 BMI 26.12 kg/m2 02/03/2025 Sitting: P: 83, SBP: 128, St anding: P: 100, SBP: 120 Encounters Encounter Location Date Provider Diagnosis [facility] [address] [facility] [address] [place] [address] 02/03/2025 Brien Rojas Dizziness R42 and Orthostatic hypotension I95.1 Assessments Encounter Date Diagnosis (ICD Code) Assessment Notes Treatment Notes Treatment Clinical Notes Section Notes 02/03/2025 Dizziness (ICD-10 - R42) Etiology likely orthostatic hypotension, but has recently been on steroids and has stopped Paxil abruptly at last visit. However, patient has had steroids before and the Paxil should be washed out of her system. See plan for orthostatic hypotension and will follow up in a month. 02/03/2025 Orthostatic hypotension (ICD-10 - I95.1) Did have elevation in pulse by >10 beats when she stood up. She also did endorse increased dizziness when standing. Patient has dry mucous membranes. Likely a degree of hypovolemia. Will send to transfusion center for 1 L of fluids. Will have lab work (CBC, CMP, TSH, Mag) at the infusion center. Will follow up in 1 week here in the office. 02/03/2025 Other Personally called infusion center to make sure infusion was available today. Will personally review labs. Close follow-up arranged. Plan Of Treatment Treatment Notes Assessment Notes Dizziness Etiology likely orth ostatic hypotension, but has recently been on steroids and has stopped Paxil abruptly at last visit. However, patient has had steroids before and the Paxil should be washed out of her system. See plan for orthostatic hypotension and will follow up in a month. Orthostatic hypotension Did have elevati on in pulse by >10 beats when she stood up. She also did endorse increased dizziness when standing. Patient has dry mucous membranes. Likely a degree of hypovolemia. Will send to transfusion center for 1 L of fluids. Will have lab work (CBC, CMP, TSH, Mag) at the infusion center. Will follow up in 1 week here in the office. Pending Test Test Name Order Date M-Vitamin B12 02/03/2025 Next Appt Details Follow Up: prn, Reason: Provider Name:Brien Rojas, 03/17/2025 09:45:00 AM, [address] [facility] [address], [place], [address], Progress Notes * Corby ALaDOB:1955 (69 yo F)Acc No.[id number]:02/03/2025 Progress Notes Patient: Indira THAPA Provider: Steven Rojas MD :1955 A ge:69 Y S ex:Female Date:02/03/2025 Address:[address] [place] [address] [id number] Subjective: * Chief Complaints: * 1 . 3 month follow up, was in the ER for COPD and flu A. * HPI: g en: She has been lightheaded starting sometime after she left the ER on 01/11. She says everything is fuzzy, no room spinning, feels like she may passout, no brightness, vision is blurry. She is being treated for macular degenration in the right eye. She dizzy sitting down, has to sit and scoot to go up and down stairs. She is always dizzy, start when she gets out of bed. Been drinking water and pedaylate. Started after she took prednisone + Tamiflu. No falls. She has stopped paxil in the last month. Did have increased dizziness when she stood up for orthostatic vitals. left her for someone 36 years younger. He has been living with her. They text. S he is really sad over this, Im trying to get to the point to where im mad . No one to talk too. She has no problems with sleep, or changes in appetitie. * Medical History: H yperlipidemia, Anxiety, Hypertension, Endometriosis, colonoscopy June 2015 - tubular adenoma, Tobacco use disorder, Moderate osteopenia on DEXA 12/11 - rx started - repeated 04/14 and stable, Normal mammogram 08/14 and 10/2022 and 01/14, Macular degeration left eye, Covid 19, Diabetes, Normal LDCT 02/12 and normal 12/2023, Covid 19. * Surgical History: v aginal partial hysterectomy 01/1985, left breast bx-benign 1990, D&C 11/1984, inj in lt eye for macular degeneration 11/25/2018, inj in lt eye for macular degeneration 06/2019, colonoscopy 05/24/2021. * Hospitalization/Major Diagno stic Procedure: h ysterectomy 1984, reaction 03/2021. * Family History: F ather: , lung ca. M other: , hypertension, COPD, diagnosed with Heart Disease. P aternal Grand Father: , AAA. P aternal Grand Mother: , pernicious anemia. M aternal Grand Father: , [place]. M aternal Grand Mother: , stroke. P aternal aunt: alive. M aternal uncle: . M aternal aunt: . S iblings: alive. C hildren: alive. 1 brother(s) . 1 daughter(s) - healthy. . * Social History: R ecreational drug use: no. Exercise: yes. Home smoke detector use: yes. Caffeine: yes, 1 cup coffee daily, 2 diet sodas, unsweet tea. Living Will: No. Alcohol: no. Sexually active: no. Travel outside [place]: no. Occupation: Retired. Tobacco Control (Standard) T obacco use: F ormer smoker,?How long has it been since you last smoked? 3 -6 months. * Medications: T aking ASPIR-LOW 81 MG [...] *Please review and pick correct strength-formulation from MetaJure options. If intended option is not shown, discontinue and re-order from Quick Search*, Taking Alendronate Sodium 35 MG Tablet 1 tab(s) orally once a week , Taking buPROPion HCl ER (XL) 300 MG Tablet Extended Release 24 Hour 1 tab(s) orally every 24 hours , Taking Synthroid 75 MCG Tablet 1 tab(s) orally once a day , Taking Trelegy Ellipta 100-62.5-25 MCG/ACT Aerosol Powder Breath Activated INHALE 1 PUFF BY MOUTH DAILY , Taking Meloxicam 15 MG Tablet 1 tab(s) orally once a day , Taking Atorvastatin Calcium 40 MG Tablet TAKE 1 TABLET BY MOUTH DAILY AT BEDTIME , Taking metFORMIN HCl 500 MG Tablet TAKE 1 TABLET BY MOUTH TWICE DAILY , Taking Ciclodan 8 % Solution 1 diana applied topically twice daily , Discontinued Doxycycline Hyclate 100 MG Capsule 1 cap(s) orally 2 times a day , Discontinued predniSONE 20 MG Tablet 3 tabs orally once a day for two days, then 2 daily for 2 days, then one daily for two days , Medication List reviewed and reconciled with the patient * Allergies: N .K.D.A. Objective: * Vitals: N urse: be, Pain: 0, Temp: 98.0, RR: 16, HR: 100, BP: 110/72, Ht: 5 ft 5 in, Wt: 157, BMI:26.12. Sitting: P: 83, SBP: 128, Standing: P: 100, SBP: 120. * Examination: G eneral Examination: General P leasant and Cooperative, NAD on RA,. Heart: R egular Rate and Rhythm, no murmur, rubs or gallops. HEENT: D ry mucous membranes. Lungs: D ecreased Breathe sounds, poor inspiratory effort..? Abdomen: S oft, NTND, BSNA, No organomegaly or peritoneal signs.. Neurologic Exam: N o focal neurological deficets, no overt cranial nerve deficets. No weakness, decreased sensation, or problems with coordination.. Assessment: * Assessment: 1. D izziness - R42 (Primary) 2 . O rthostatic hypotension - I95.1 ? Plan: * Treatment: Value Reference Range W isaura Blood Count 7.3 4.8-10.8 - K/mm3 * R ed Blood Count 4.71 4.20-5.40 - M/mm3 * H emoglobin 12.9 12.2-16.2 - g/dL * H ematocrit 40.3 37.0-47.0 - % * M jeremías Corpuscular Volume 85.6 81-99 - fl * M jeremías Corpuscular Hemoglobin 27.4 27.0-31.2 - p g * M jeremías Corpuscular HGB Conc 32.0 31.8-35.4 - g/d L * R ed Cell Distribution Width 15.4 11.5-17.5 - % * P latelet Count 340 142-424 - K/mm3 * M jeremías Platelet Volume 10.4 7.4-10.4 - fl * N eutrophils % 68.0 37.0-80.0 - % * L ymphocytes % 22.7 10-50 - % * M onocytes % 7.1 1.7-9.3 - % * E osinophils % 1.6 0.1-12.0 - % * B asophils % 0.3 0.1-2.0 - % * N eutrophils # 5.0 1.8-7.8 - K/mm3 * L ymphocytes # 1.7 0.7-4.5 - K/mm3 * M onocytes # 0.5 0.1-1.0 - K/mm3 * E osinophils # 0.1 0.0-0.4 - Kmm3 * B asophils # 0.0 0-0.2 - K/mm3 * Lima Mckeon 02/06/20 11:00:47 AM EDT > pt informedThis lab was reviewed by Lima Mckeon on 02/05/2025 at 11:00 AM EDT ?LAB: M-Comprehensive Metabolic Panel* Value Reference Range S odium 141 136-145 - mmol/L * P otassium 3.6 3.5-5.1 - mmoL/L * C hloride 109 H 98-107 - mmol/L * C arbon Dioxide 27 22.0-30.0 - mmol/L * A nion Gap 8.6 5-15 - mEq/L * B lood Urea Nitrogen 23 H 7-17 - mg/dl * C reatinine,Serum 0.90 0.52-1.04 - mg/dl * G FR () 75 >60 - ML/MIN * E stimated Glomerular Filt Rate 62 >60 - ml/m in * G lucose 93 74-100 - mg/dl * C alcium 10.0 8.4-10.2 - mg/dl * B ilirubin,Total 0.5 0.2-1.3 - mg/dl * A spartate Amino Transferase 31 14-36 - U/L * A lanine Aminotransferase 19 12-78 - U/L * T otal Protein,Serum 6.7 6.3-8.2 - g/dl * A lbumin Level 4.1 3.5-5.0 - g/dl * G lobulin 2.6 1.3-3.2 - g/dL * A lbumin/Globulin Ratio 1.6 1.1-1.8 - * A lkaline Phosphatase 106 38-126 - U/L * Lima Mckeon 02/06/20 11:00:47 AM EDT > pt informedThis lab was reviewed by Lima Mckeon on 02/05/2025 at 11:00 AM EDT ?LAB: M-Thyroid Stimulating Hormone* Value Reference Range T hyroid Stimulating Hormone 1.60 0.465-4.68 - uIU/mL * Lima Mckeon 02/06/20 11:00:47 AM EDT > pt informedThis lab was reviewed by Lima Mckeon on 02/05/2025 at 11:00 AM EDT ?LAB: M-Vitamin B12 Notes: Etiology likely orthostatic hypotension, but has recently been on steroids and has stopped Paxil abruptly at last visit. However, patient has had steroids before and the Paxil should be washedout of her system. See plan for orthostatic hypotension and will follow up in a month. ??2.?Orthostatic hypotension?LAB: M-Complete Blood Count Auto Diff* Value Reference Range W isaura Blood Count 7.3 4.8-10.8 - K/mm3 * R ed Blood Count 4.71 4.20-5.40 - M/mm3 * H emoglobin 12.9 12.2-16.2 - g/dL * H ematocrit 40.3 37.0-47.0 - % * M jeremías Corpuscular Volume 85.6 81-99 - fl * M jeremías Corpuscular Hemoglobin 27.4 27.0-31.2 - p g * M jeremías Corpuscular HGB Conc 32.0 31.8-35.4 - g/d L * R ed Cell Distribution Width 15.4 11.5-17.5 - % * P latelet Count 340 142-424 - K/mm3 * M jeremías Platelet Volume 10.4 7.4-10.4 - fl * N eutrophils % 68.0 37.0-80.0 - % * L ymphocytes % 22.7 10-50 - % * M onocytes % 7.1 1.7-9.3 - % * E osinophils % 1.6 0.1-12.0 - % * B asophils % 0.3 0.1-2.0 - % * N eutrophils # 5.0 1.8-7.8 - K/mm3 * L ymphocytes # 1.7 0.7-4.5 - K/mm3 * M onocytes # 0.5 0.1-1.0 - K/mm3 * E osinophils # 0.1 0.0-0.4 - Kmm3 * B asophils # 0.0 0-0.2 - K/mm3 * Lima Mckeon 02/06/20 11:00:47 AM EDT > pt informedThis lab was reviewed by Lima Mckeon on 02/05/2025 at 11:00 AM EDT ?LAB: M-Comprehensive Metabolic Panel* Value Reference Range S odium 141 136-145 - mmol/L * P otassium 3.6 3.5-5.1 - mmoL/L * C hloride 109 H 98-107 - mmol/L * C arbon Dioxide 27 22.0-30.0 - mmol/L * A nion Gap 8.6 5-15 - mEq/L * B lood Urea Nitrogen 23 H 7-17 - mg/dl * C reatinine,Serum 0.90 0.52-1.04 - mg/dl * G FR () 75 >60 - ML/MIN * E stimated Glomerular Filt Rate 62 >60 - ml/m in * G lucose 93 74-100 - mg/dl * C alcium 10.0 8.4-10.2 - mg/dl * B ilirubin,Total 0.5 0.2-1.3 - mg/dl * A spartate Amino Transferase 31 14-36 - U/L * A lanine Aminotransferase 19 12-78 - U/L * T otal Protein,Serum 6.7 6.3-8.2 - g/dl * A lbumin Level 4.1 3.5-5.0 - g/dl * G lobulin 2.6 1.3-3.2 - g/dL * A lbumin/Globulin Ratio 1.6 1.1-1.8 - * A lkaline Phosphatase 106 38-126 - U/L * Lima Mckeon 02/06/20 11:00:47 AM EDT > pt informedThis lab was reviewed by Lima Mckeon on 02/05/2025 at 11:00 AM EDT ?LAB: M-Thyroid Stimulating Hormone* Value Reference Range T hyroid Stimulating Hormone 1.60 0.465-4.68 - uIU/mL * Lima Mckeon N 02/06/20 11:00:47 AM EDT > pt informedThis lab was reviewed by Lima Mcekon on 02/05/2025 at 11:00 AM EDT ?LAB: M-Vitamin B12 Notes: Did have elevation in pulse by >10 beats when she stood up. She also did endorse increased dizziness when standing. Patient has dry mucous membranes. Likely a degree of hypovolemia. Will send to transfusion center for 1 L of fluids. Will have lab work (CBC, CMP, TSH, Mag) at the infusion center. Will follow up in 1 week here in the office. ??3.?Others? Clinical Notes: Personally called infusion center to make sure infusion was available today. Will personally review labs. Close follow-up arranged.?? * Procedure Codes: G 2211 Complex e/m visit add on * Follow Up: p rn * * Sign off status: Completed true * Provider: Steven Rojas MD Date: 0 02/03/2025 Generated for Kristen rodriguez/Marlena/Jayaitting on: 0 03/08/2025 01:43 PM EDT History and Physical Notes * HPI (History of Present Illness) Category Sub-Category Detail Notes Category Not es gen She has been lightheaded starting sometime after she left the ER on 01/11. She says everything is fuzzy, no room spinning, feels like she may passout, no brightness, vision is blurry. She is being treated for macular degenration in the right eye. She dizzy sitting down, has to sit and scoot to go up and down stairs. She is always dizzy, start when she gets out of bed. Been drinking water and pedaylate. Started after she took prednisone + Tamiflu. No falls. She has stopped paxil in the last month. Did have increased dizziness when she stood up for orthostatic vitals. left her for someone 36 years younger. He has been living with her. They text. She is really sad over this, Im trying to get to the point to where im mad . No one to talk too. She has no problems with sleep, or changes in appetitie. Examination Category Sub-Category Detail Notes Category Not es General Examination HEENT: Dry mucous membranes Heart: Regular Rate and Rhy thm, no murmur, rubs or gallops Lungs: Decreased Breathe so unds, poor inspiratory effort. Abdomen: Soft, NTND, BSNA, No organomegaly or peritoneal signs. Neurologic Exam: No focal neurologica l deficets, no overt cranial nerve deficets. No weakness, decreased sensation, or problems with coordination. General Pleasant and Coopera tive, NAD on RA,
--- OUTSIDE RECORDS SUMMARY | 2025-02-10 07:45 | XMS_ITS ---
Author Organization [facility] Address [address] [place] [address] Care Team Providers Care Logistics Vice President Name Role Phone Brien Rojas Primary Care Provider Allergies No Known Allergies REASON FOR VISIT 1 week follow up Medications Medication SIG (Take, Route, Frequency, Duration) Notes Start Date End Date Status Synthroid 75 MCG 1 tab(s) orally once a day; Duration: 90 days Active Trelegy Ellipta 100-62.5-25 MCG/ACT INHALE 1 PUFF BY MOUTH DAILY; Duration: 30 days Active Meloxicam 15 MG 1 tab(s) orally once a day; Duration: 30 days Active Atorvastatin Calcium 40 MG TAKE 1 TABLET BY MOUTH DAILY AT BEDTIME; Duration: 90 Active Calcium 600 + D 600 MG-800 INTL UNITS 1 TAB(S) ORALLY 2 TIMES A DAY *Please review and pick correct strength-formulatio n from [employer] options. If intended option is not shown, discontinue and re-order from Quick Search* Active Alendronate Sodium 35 MG 1 tab(s) orally once a week; Duration: 84 Active ASPIR-LOW 81 MG 1 TAB(S) ORALLY ONCE A DAY; Duration: 30 DAYS *Please review for potential replacement for e-prescription and drug interaction check* Active ZyrTEC Allergy 10 MG 1 tab(s) orally once a day Active PARoxetine HCl 20 MG 1 tablet in the morning Orally Once a day; Duration: 30 day(s) 02/10/2025 Active Social History Tobacco Use: Social History Observation Description Date Details (start date - stop date) Former Smoker NA - NA Tobacco Control (Standard) Question Answer Notes Tobacco use: Former smoker How long has it been since you last smoked? 3-6 months Problems Problem Type SNOMED Code ICD Code Onset Dates Problem Status W/U Status Risk Notes Problem Adjustment disorder with depressed mood (71301529) Adjustment disorder with depressed mood (F43.21) Active confirmed Vital Signs Temperature 97.7 degrees Fahrenheit 02/11/20 25 Heart Rate 92 /min 02/10/2025 Blood pressure systolic 136 mm Hg 02/11/20 25 Blood pressure diastolic 76 mm Hg 025 Height 5 ft 5 in in 02/10/2025 Weight 158 lbs 02/10/2025 BMI 26.29 kg/m2 02/10/2025 Sitting - P: 75 SBP: 133, St anding P:93, SBP: 138 Encounters Encounter Location Date Provider Diagnosis [facility] [address] [place] [address] 02/10/2025 Brien Rojas Adjustment disorder with depressed mood F43.21 ; Orthostatic hypotension I95.1 ; Prediabetes R73.03 and Postural dizziness R42 Assessments Encounter Date Diagnosis (ICD Code) Assessment Notes Treatment Notes Treatment Clinical Notes Section Notes 02/10/2025 Adjustment disorder with depressed mood (ICD-10 - F43.21) Her has left her about a month ago. She was taking Paxil prior but she was switched to Buproprion for smoking cessation. Will restart Paxil today and see back in 1 week. Patient is not taking Buproprion. 02/10/2025 Orthostatic hypotension (ICD-10 - I95.1) Patients pulse went from 75 sitting to 93 standing. She does feel improvement in dizziness with the Liter of fluid, however did not completely resolve. Did encourage patient to continue to eat 3 meals a day + continue oral hydration. Also encouraged patient to stop metformin as GI loss could be contributing to hypovolemia, although patient has moist mucous membranes. 02/10/2025 Prediabetes (ICD-10 - R73.03) Patient's last A1c was 5.8. She endorses that she is only eating 1 meal a day. Will D/c metformin in light of dizziness with possible hypoglycemia + volume loss in stool. 02/10/2025 Postural dizziness (ICD-10 - R42) Patient does have orthostatic hypotension, although does not appear hypovolemic on exam. Dizziness did improve with liter of fluid last week. Could still be component of GI volume loss with metformin so will stop. Encouraged to eat 3 meals a day to prevent hypoglycemia. No carotid bruits on exam and less than 50% stenosis on carotid US last year. Does endorse everything taste like salt, however, does not notice dizziness increased later in the day. Can consider cortisol labs at next visit. Plan Of Treatment Medication Medication Name Sig Start Date Stop Date Notes buPROPion HCl ER (XL) 300 MG 1 tab(s) or ally every 24 hours metFORMIN HCl 500 MG TAKE 1 TABLET BY [facility] TWICE DAILY PARoxetine HCl 20 MG 1 tablet in the mor flo Orally Once a day; Duration: 30 day(s) 02/10/2025 Treatment Notes Assessment Notes Adjustment disorder with depressed mood Her has left her about a month ago. She was taking Paxil prior but she was switched to Buproprion for smoking cessation. Will restart Paxil today and see back in 1 week. Patient is not taking Buproprion. Orthostatic hypotension Patients pulse w ent from 75 sitting to 93 standing. She does feel improvement in dizziness with the Liter of fluid, however did not completely resolve. Did encourage patient to continue to eat 3 meals a day + continue oral hydration. Also encouraged patient to stop metformin as GI loss could be contributing to hypovolemia, although patient has moist mucous membranes. Prediabetes Patient's last A1c w as 5.8. She endorses that she is only eating 1 meal a day. Will D/c metformin in light of dizziness with possible hypoglycemia + volume loss in stool. Postural dizziness Patient does have or thostatic hypotension, although does not appear hypovolemic on exam. Dizziness did improve with liter of fluid last week. Could still be component of GI volume loss with metformin so will stop. Encouraged to eat 3 meals a day to prevent hypoglycemia. No carotid bruits on exam and less than 50% stenosis on carotid US last year. Does endorse everything taste like salt, however, does not notice dizziness increased later in the day. Can consider cortisol labs at next visit. Next Appt Details Follow Up: prn, Reason: Provider Name:Brien Rojas, 03/17/2025 09:45:00 AM, [address], [address], [place], [address], Progress Notes * Corby ALaDOB:1955 (69 yo F)Acc No.[id number]:02/10/2025 Progress Notes Patient: Indira THAPA Provider: Steven Rojas MD :1955 A ge:69 Y S ex:Female Date:02/10/2025 Address:[address] [place] [address] [place], [id number] Subjective: * Chief Complaints: * 1 . 1 week follow up. * HPI: g en: She think the fluid did help her, her skin is less wrinkled. The dizziness still hasnt resolved, but it has improved. Standing up still makes her dizzy, but its not as bad. She says she is drinking herself to . She is able to walk up and down the stairs now, but shes careful. Still no room spinning sensation. No dizziness turning her head. She think she has been urinating more since the last visit. She only really eats one meal a day, she says she will eat a donut or something for breakfast. Everything she eats taste like salt. * Medical History: H yperlipidemia, Anxiety, Hypertension, [...] pernicious anemia. M aternal Grand Father: , [place]. M aternal Grand Mother: , stroke. P aternal aunt: alive. M aternal uncle: . M aternal aunt: . S iblings: alive. Annabel price: alive. 1 brother(s) . 1 daughter(s) - [...] 1 TABLET BY MOUTH TWICE DAILY , Discontinued Ciclodan 8 % Solution 1 diana applied topically twice daily , Medication List reviewed and reconciled with the patient * Allergies: N .K.D.A. Objective: * Vitals: N urse: be, Pain: 0, Temp: 97.7, RR: 16, HR: 92, BP: 136/76, Ht: 5 ft 5 in, Wt: 158, BMI:26.29. Sitting - P: 75 SBP: 133, Standing P:93, SBP: 138. * Examination: G eneral Examination: General P leasant and Cooperative, NAD on RA,. Oral cavity: M oist membranes. Heart: R egular Rate and Rhythm, no murmur, rubs or gallops. Lungs: L CTAB, No wheezes, crackles or rhonchi, Good air movement,. Abdomen: S oft, NTND, BSNA, No organomegaly or peritoneal signs.. Neurologic Exam: n o focal signs,, normal sensation, strength, tone and reflexes,, Alert and oriented x 3. neck N o Catotid b ruits heard. Assessment: * Assessment: 1. O rthostatic hypotension - I95.1 (Primary) 2 . A djustment disorder with depressed mood - F43.21 3 . P rediabetes - R73.03 4 . P ostural dizziness - R42 Plan: * Treatment: 2. A djustment disorder with depressed mood Start PARoxetine HCl Tablet, 20 MG, 1 tablet in the morning, Orally, Once a day, 30 day(s), 30;?Stop buPROPion HCl ER (XL) Tablet Extended Release 24 Hour, 300 MG, 1 tab(s), orally, every 24 hours. Notes: Her has left her about a month ago. She was taking Paxil prior but she was switched to Buproprion for smoking cessation. Will restart Paxil today and see back in 1 week. Patient is not taking Buproprion. 3. P rediabetes Stop metFORMIN HCl Tablet, 500 MG, TAKE 1 TABLET BY MOUTH TWICE DAILY. Notes: Patient's last A1c was 5.8. She endorses that she is only eating 1 meal a day. Will D/c metformin in light of dizziness with possible hypoglycemia + volume loss in stool. 4. P ostural dizziness Notes: Patient does have orthostatic hypotension, although does not appear hypovolemic on exam. Dizziness did improve with liter of fluid last week. Could still be component of GI volume loss with metformin so will stop. Encouraged to eat 3 meals a day to prevent hypoglycemia. No carotid bruits on exam and less than 50% stenosis on carotid US last year. Does endorse everything taste like salt, however, does not notice dizziness increased later in the day. Can consider cortisol labs at next visit. * Procedure Codes: G 2211 Complex e/m visit add on * Follow Up: p rn * * Sign off status: Completed true * Provider: Steven Rojas MD Date: 0 02/10/2025 Generated for Kristen rodriguez/Marlena/eTransmitting on: 0 03/08/2025 01:43 PM EDT History and Physical Notes * HPI (History of Present Illness) Category Sub-Category Detail Notes Category Not es gen She think the fluid did help her, her skin is less wrinkled. The dizziness still hasnt resolved, but it has improved. Standing up still makes her dizzy, but its not as bad. She says she is drinking herself to . She is able to walk up and down the stairs now, but shes careful. Still no room spinning sensation. No dizziness turning her head. She think she has been urinating more since the last visit. She only really eats one meal a day, she says she will eat a donut or something for breakfast. Everything she eats taste like salt. Examination Category Sub-Category Detail Notes Category Not es General Examination Heart: Regular Rate and Rhythm, no murmur, rubs or gallops Lungs: LCTAB, No wheezes, c rackles or rhonchi, Good air movement, Abdomen: Soft, NTND, BSNA, No organomegaly or peritoneal signs. Neurologic Exam: no focal signs,, nor mal sensation, strength, tone and reflexes,, Alert and oriented x 3 Oral cavity: Moist membranes neck No Catotid bruits he brandon General Pleasant and Coopera tive, NAD on RA,
--- OUTSIDE RECORDS SUMMARY | 2025-02-15 08:15 | XMS_ITS ---
Author Organization [facility] D [facility] Address [address] [place] [address] Care Team Providers Care Credit Risk Modeler Name Role Phone Brien Rojas Primary Care Provider [phone] Allergies No Known Allergies REASON FOR VISIT 1 week follow up Medications Medication SIG (Take, Route, Frequency, Duration) Notes Start Date End Date Status PARoxetine HCl 20 MG 1 tablet in the morning Orally Once a day; Duration: 30 day(s) 02/10/2025 Active Atorvastatin Calcium 40 MG TAKE 1 TABLET BY MOUTH DAILY AT BEDTIME; Duration: 90 Active Meloxicam 15 MG 1 tab(s) orally once a day; Duration: 30 days Active Trelegy Ellipta 100-62.5-25 MCG/ACT INHALE 1 PUFF BY MOUTH DAILY; Duration: 30 days Active Albuterol Sulfate HFA 108 (90 Base) MCG/ACT 2 puffs Inhalation every 4 hrs; Duration: 30 days As needed 02/15/2025 Active Synthroid 75 MCG 1 tab(s) orally once a day; Duration: 90 days Active Alendronate Sodium 35 MG 1 tab(s) orally once a week; Duration: 84 Active Calcium 600 + D 600 MG-800 INTL UNITS 1 TAB(S) ORALLY 2 TIMES A DAY *Please review and pick correct strength-formulatio n from [employer] options. If intended option is not shown, discontinue and re-order from Quick Search* Active ZyrTEC Allergy 10 MG 1 tab(s) orally once a day Active ASPIR-LOW 81 MG 1 TAB(S) ORALLY ONCE A DAY; Duration: 30 DAYS *Please review for potential replacement for e-prescription and drug interaction check* Active Immunizations Vaccine Route Administration Date Status Comme nts Fluzone High Dose IM Intramuscular 02/15/2025 Administered Social History Tobacco Use: Social History Observation Description Date Details (start date - stop date) Former Smoker NA - NA Tobacco Control (Standard) Question Answer Notes Tobacco use: Former smoker How long has it been since you last smoked? 3-6 months Vital Signs Temperature 97.5 degrees Fahrenheit 02/16/20 25 Heart Rate 80 /min 02/15/2025 Blood pressure systolic 154 mm Hg 02/16/20 Blood pressure diastolic 80 mm Hg 025 Height 5 ft 5 in in 02/15/2025 Weight 157 lbs 02/15/2025 BMI 26.12 kg/m2 02/15/2025 Encounters Encounter Location Date Provider Diagnosis [facility] [address] [place] [address] 02/15/2025 Brien Rojas Immunization(s) administered Z23 ; COPD with exacerbation J44.1 ; Adjustment disorder with depressed mood F43.21 ; Hypertension, essential I10 and Dizziness R42 Assessments Encounter Date Diagnosis (ICD Code) Assessment Notes Treatment Notes Treatment Clinical Notes Section Notes 02/15/2025 Immunization(s) administered (ICD-10 - Z23) 02/15/2025 COPD with exacerbation (ICD-10 - J44.1) Refill albuterol inhaler to use PRN 02/15/2025 Adjustment disorder with depressed mood (ICD-10 - F43.21) mood well maintanined on paxil. Continue current regimen 02/15/2025 Hypertension, essential (ICD-10 - I10) Pt not currently on antihypertension medication. BP 154/80 likely elevated due to symptoms causing her some stress Discussed with pt at home blood pressure monitoring, pt voices understanding 02/15/2025 Dizziness (ICD-10 - R42) Pt looks much better today, she reports still feeling dizzy when standing or getting up from leaning over. She is still drinking lots of water and kaila D which is causing her to urinate more frequently. No need to for regemin adjustment today, will f/u in 2 wks 02/15/2025 Other reevaluate in 2 wks Plan Of Treatment Medication Medication Name Sig Start Date Stop Date Notes Albuterol Sulfate HFA 108 (9 0 Base) MCG/ACT 2 puffs Inhalation every 4 hrs; Duration: 30 days 02/15/2025 Treatment Notes Assessment Notes COPD with exacerbation Refill albuterol inhaler to use PRN Adjustment disorder with depressed mood mood well maintanined on paxil. Continue current regimen Hypertension, essential Pt not currently on antihypertension medication. BP 154/80 likely elevated due to symptoms causing her some stress Discussed with pt at home blood pressure monitoring, pt voices understanding Dizziness Pt looks much better today, she reports still feeling dizzy when standing or getting up from leaning over. She is still drinking lots of water and kaila D which is causing her to urinate more frequently. No need to for regemin adjustment today, will f/u in 2 wks Other reevaluate in 2 wks Next Appt Details Follow Up: prn, Reason: Provider Name:Brien Rojas, 03/17/2025 09:45:00 AM, [address] [facility] [address] [facility], [address], [place], [address], Progress Notes * Corby ALaDOB:1955 (69 yo F)Acc No.[id number]:02/15/2025 Progress Notes Patient: Indira TAHPA Provider: Steven Rojas MD :1955 A ge:69 Y S ex:Female Date:02/15/2025 Address:[address] [place] [address] [id number] Subjective: * Chief Complaints: * 1 . 1 week follow up. * HPI: g en: Mrs. Jacobson presents today for a 1 wk follow up. She is still dizzy when standing or leaning. Denies falling or passing out. Her bp in clinic today is high, she is not on medications for bp. She stopped taking metformin last week started on paxil she states her mood has been okay since starting back. would like her flu shot today. She also thinks her COPD is flaring. She has been blowing her nose more often and having shortness of breath. She denies having to use her inhaler. * Medical History: H yperlipidemia, Anxiety, Hypertension, [...] pernicious anemia. M aternal Grand Father: , [place]. M aternal Grand Mother: , stroke. P [...] *Please review and pick [facility]ulation [facility] options. If intended option is not shown, discontinue and re-order from Quick Search*, Taking Alendronate Sodium 35 MG Tablet 1 tab(s) orally once a week , Taking Synthroid 75 MCG Tablet 1 tab(s) orally once a day , Taking Trelegy Ellipta 100-62.5-25 MCG/ACT Aerosol Powder Breath Activated INHALE 1 PUFF BY MOUTH DAILY , Taking Meloxicam 15 MG Tablet 1 tab(s) orally once a day , Taking Atorvastatin Calcium 40 MG Tablet TAKE 1 TABLET BY MOUTH DAILY AT BEDTIME , Taking PARoxetine HCl 20 MG Tablet 1 tablet in the morning Orally Once a day , Medication List reviewed and reconciled with the patient * Allergies: N .K.D.A. Objective: * Vitals: N urse: KJ, Pain: 0, Temp: 97.5, RR: 16, HR: 80, BP: 154/80, Ht: 5 ft 5 in, Wt: 157, BMI:26.12. * Examination: G eneral Examination: General P leasant and Cooperative, NAD on RA,. Heart: R egular Rate and Rhythm, no murmur, rubs or gallops. Lungs: L CTAB, No wheezes, crackles or rhonchi, Good air movement,. Assessment: * Assessment: 1. C OPD with exacerbation - J44.1 (Primary) 2 . I mmunization(s) administered - Z23 3 . A djustment disorder with depressed mood - F43.21 4 . H ypertension, essential - I10 5 . D rony - R42 Plan: * Treatment: 2. A djustment disorder with depressed mood Notes: mood well maintanined on paxil. Continue current regimen 3. H ypertension, essential Notes: Pt not currently on antihypertension medication. BP 154/80 likely elevated due to symptoms causing her some stress Discussed with pt at home blood pressure monitoring, pt voices understanding 4. D rony Notes: Pt looks much better today, she reports still feeling dizzy when standing or getting up from leaning over. She is still drinking lots of water and akila D which is causing her to urinate more frequently. No need to for regemin adjustment today, will f/u in 2 wks 5. O thers Notes: reevaluate in 2 wks * Immunizations: Fluzone High Dose : 0.7 mL (Route: Intramuscular) given by EN Gallagher on Right Arm (Immunization(s) administered) * Procedure Codes: 9 0662 Influenza High Dose Vaccine >65 Years Old, G0008 ADMINISTRATION-FLU VACCINE MEDICARE ONLY, G2211 Complex e/m visit add on * Follow Up: p rn * * Sign off status: Completed true * Provider: Steven Rojas MD Date: 0 02/15/2025 Generated for Cabrerai jennifer/Marlena/eTransmitting on: 0 03/08/2025 01:43 PM EDT History and Physical Notes * HPI (History of Present Illness) Category Sub-Category Detail Notes Category Not es gen Mrs. Jacobson presents today for a 1 wk follow up. She is still dizzy when standing or leaning. Denies falling or passing out. Her bp in clinic today is high, she is not on medications for bp. She stopped taking metformin last week started on paxil she states her mood has been okay since starting back. would like her flu shot today. She also thinks her COPD is flaring. She has been blowing her nose more often and having shortness of breath. She denies having to use her inhaler. Examination Category Sub-Category Detail Notes Category Not es General Examination Heart: Regular Rate and Rhythm, no murmur, rubs or gallops Lungs: LCTAB, No wheezes, c rackles or rhonchi, Good air movement, General Pleasant and Coopera tive, NAD on RA,
--- OUTSIDE RECORDS SUMMARY | 2025-03-08 13:43 | XMS_ITS | Patient Health Record ---
Author Organization [facility] Address [address] [place] [address] Care Team Providers Care District Manager In Training Name Role Phone Brien Rojas Primary Care Provider [phone] Migration, Provider Unavailable Unavailable Allergies No Known Allergies Results Component Value Reference Range Notes MAGNESIUM (622) Reviewed date:08/07/2024 02:01:49 PM Interpretation: Performing Lab:[facility], [employer] [id number] [address], AlephCloud SystemsMwlbFL[address] Rafael Lin Notes/Report: NON-FASTING; NON-FASTING; NON-FASTING; NON-FASTING MAGNESIUM 2.1 1.5-2.5 mg/dL BASIC METABOLIC PANEL (29913 ) Reviewed date:08/07/2024 02:01:49 PM Interpretation: Performing Lab:[facility] Mimoona Opsz3115 [address], AlephCloud SystemsIkppAZ[address] Rafael Lin Notes/Report: NON-FASTING; NON-FASTING; NON-FASTING; NON-FASTING [...] 29 20-32 mmol/L CALCIUM 8.8 8.6-10.4 mg/dL THYROID PANEL WITH TSH (8944 ) Reviewed date:08/07/2024 02:01:49 PM Interpretation: Performing Lab:[facility] [employer] [id number] Mitt[address] [facility], George SmithLachEI[address] Rafael Lin Notes/Report: NON-FASTING; NON-FASTING; NON-FASTING; NON-FASTING T3 UPTAKE 33 22-35 % T4 (THYROXINE), TOTAL 14.5 5.1-11.9 mcg/dL FREE T4 INDEX (T7) 4.8 1.4-3.8 TSH 0.02 0.40-4.50 mIU/L VITAMIN B12/FOLATE, SERUM PA RAMIREZ (7065) Reviewed date:10/30/2024 08:15:44 AM Interpretation: Performing Lab:[facility] [employer] [id number] CLEARtel [facility], [place] HewgZS[address] Rafael Lin Notes/Report: NON-FASTING; NON-FASTING; NON-FASTING; NON-FASTING; NON-FAST FASTING:YES FASTING: YES VITAMIN B12 [phone] pg/mL FOLATE, SERUM 5.9 Reference Range Low: <3.4 Borderline: 3.4-5.4 Normal: >5.4 CBC (INCLUDES DIFF/PLT) (639 9) Reviewed date:10/30/2024 08:15:44 AM Interpretation: Performing Lab:[facility] [employer] Htae3255 [address] [facility], [place] OhanYR[address] Rafael Lin Notes/Report: NON-FASTING; NON-FASTING; NON-FASTING; NON-FASTING; [...] MPV 10.4 7.5-12.5 fL ABSOLUTE NEUTROPHILS [phone] cells/uL ABSOLUTE LYMPHOCYTES 2090 850-3900 cells/uL ABSOLUTE MONOCYTES 540 200-950 cells/uL ABSOLUTE EOSINOPHILS 180 15-500 cells/uL ABSOLUTE BASOPHILS 30 0-200 cells/uL NEUTROPHILS 71.6 LYMPHOCYTES 20.9 MONOCYTES 5.4 EOSINOPHILS 1.8 BASOPHILS 0.3 COMPREHENSIVE METABOLIC PANE L (59458) Reviewed date:10/30/2024 08:15:44 AM Interpretation: Performing Lab:[facility], [employer]Phraxise1355 CLEARte[employer]com [employer], MotorwayBuddyDpecFT[address] Rafael Lin Notes/Report: NON-FASTING; NON-FASTING; NON-FASTING; NON-FASTING; [...] ALT 13 6-29 U/L LIPID PANEL, STANDARD (5200) Reviewed date:10/30/2024 08:15:44 AM Interpretation: Performing Lab:[facility], [employer] [address], PhraxisDmbxHG[address] Rafael Lin Notes/Report: NON-FASTING; NON-FASTING; NON-FASTING; NON-FASTING; NON-FAST FASTING:YES FASTING: YES CHOLESTEROL, TOTAL 153 <200 mg/dL HDL CHOLESTEROL 47 > OR = 50 mg/dL TRIGLYCERIDES 123 <150 mg/dL LDL-CHOLESTEROL 84 Reference range: <100 Desirable range <100 mg/dL for primary prevention; <70 mg/dL for patients with CHD or diabetic patients with > or = 2 CHD risk factors. LDL-C is now calculated using the Zeus-Uriostegui calculation, which is a validated novel method providing better accuracy than the Friedewald equation in the estimation of LDL-C. Zeus WHITAKER et al. RICHAR. 2013;310(19): 4534-9566 (http://[employer].Skillaton/faq/QBQ287) CHOL/HDLC RATIO 3.3 <5.0 (calc) NON HDL CHOLESTEROL 106 <130 mg/dL (calc) For patients with diabetes plus 1 major ASCVD risk factor, treating to a non-HDL-C goal of <100 mg/dL (LDL-C of <70 mg/dL) is considered a therapeutic option. THYROID PANEL WITH TSH (7444 ) Reviewed date:10/30/2024 08:15:44 AM Interpretation: Performing Lab:[facility] [employer] PhraxisPvtzWV[address] Rafael Lin Notes/Report: NON-FASTING; NON-FASTING; NON-FASTING; NON-FASTING; NON-FAST FASTING:YES FASTING: YES T3 UPTAKE 27 22-35 % T4 (THYROXINE), TOTAL 10.6 5.1-11.9 mcg/dL FREE T4 INDEX (T7) 2.9 1.4-3.8 TSH 2.53 0.40-4.50 mIU/L THYROID PANEL WITH TSH (7444 ) Reviewed date:05/14/2024 02:53:28 PM Interpretation: Performing Lab:[facility] Kurani Interactivee1355 [employer], AlephCloud SystemsMwmxHW[address] Rafael Lin Notes/Report: T3 UPTAKE 31 22-35 % T4 (THYROXINE), TOTAL 13.7 5.1-11.9 mcg/dL FREE T4 INDEX (T7) 4.2 1.4-3.8 TSH 0.06 0.40-4.50 mIU/L COMPREHENSIVE METABOLIC PANE L (93007) Reviewed date:05/14/2024 02:53:29 PM Interpretation: Performing Lab:[facility] [employer] Utrk5065 [address] [facility], [facility] ClinicYwhdAL[address] Rafael Lin Notes/Report: GLUCOSE 85 65-99 mg/dL [...] 17 10-35 U/L ALT 13 6-29 U/L CBC (INCLUDES DIFF/PLT) (639 9) Reviewed date:05/14/2024 02:53:29 PM Interpretation: Performing Lab:[facility] [employer] Yxjr6733 CLEARtePSE&G [facility], [facility] ClinicMlzkXJ[address] Rafael Lin Notes/Report: WHITE BLOOD CELL COUNT [...] MPV 11.5 7.5-12.5 fL ABSOLUTE NEUTROPHILS 4348 0966-3237 cells/uL ABSOLUTE LYMPHOCYTES 6379 452-2173 cells/uL ABSOLUTE MONOCYTES 503 200-950 cells/uL ABSOLUTE EOSINOPHILS 147 15-500 cells/uL ABSOLUTE BASOPHILS 20 0-200 cells/uL NEUTROPHILS 64.9 LYMPHOCYTES 25.1 MONOCYTES 7.5 EOSINOPHILS 2.2 BASOPHILS 0.3 VITAMIN B12 (927) Reviewed date:08/07/2024 02:01:49 PM Interpretation: Performing Lab:CB, [employer] [address], [facility] Gran[facility] ManorDjjoLH[address] Rafael Lin Notes/Report: NON-FASTING; NON-FASTING; NON-FASTING; NON-FASTING VITAMIN B12 0524 780-0311 pg/mL M-Complete Blood Count Auto Diff Reviewed date:02/05/2025 [...] Performing Lab: Notes/Report: TSH 1.60 0.465-4.68 uIU/mL H-VITB12 Reviewed date:02/05/2025 11:00:53 AM Interpretation: Performing Lab: Notes/Report: VITB12 838 239-931 pg/mL H-FOL Reviewed date:02/05/2025 11:00:53 AM Interpretation: Performing Lab: Notes/Report: FOL 8.45 Normal Adult: 2.76->20 ng/mL Folate Deficent: 1.04-2.79ng/mL Reason For Referral No Information Medications Medication SIG (Take, Route, Frequency, Duration) Notes Start Date End Date Status Atorvastatin Calcium 40 MG TAKE 1 TABLET BY MOUTH DAILY AT BEDTIME; Duration: 90 Active Trelegy Ellipta 100-62.5-25 MCG/ACT INHALE 1 PUFF BY MOUTH DAILY; Duration: 30 days Active Synthroid 75 MCG 1 tab(s) orally once a day; Duration: 90 days Active Alendronate Sodium 35 MG 1 tab(s) orally once a week; Duration: 84 Active Albuterol Sulfate HFA 108 (90 Base) MCG/ACT 2 puffs Inhalation every 4 hrs; Duration: 30 days As needed 02/15/2025 Active Calcium 600 + D 600 MG-800 INTL UNITS 1 TAB(S) ORALLY 2 TIMES A DAY *Please review and pick correct strength-formulatio n from Medispan options. If intended option is not shown, discontinue and re-order from Quick Search* Active PARoxetine HCl 30 MG TAKE 1 TABLET BY MOUTH DAILY; Duration: 90 Active ZyrTEC Allergy 10 MG 1 tab(s) orally once a day Active ASPIR-LOW 81 MG 1 TAB(S) ORALLY ONCE A DAY; Duration: 30 DAYS *Please review for potential replacement for e-prescription and drug interaction check* Active Meloxicam 15 MG 1 tab(s) orally once a day; Duration: 90 days Active Immunizations Vaccine Route Administration Date Status Comme nts Fluzone High Dose IM Intramuscular 02/15/2025 Administered SHINGRIX Unknown 2019 Administered SHINGRIX Unknown 02/19/2020 Administered Pneumovax 23 IM Intramuscular 03/02/2021 Administered Fluzone High Dose IM Intramuscular 04/29/2023 Administered Fluzone High Dose IM Intramuscular 04/23/2022 Administered Fluzone High Dose IM Intramuscular 03/02/2021 Administered Flublok IM Intramuscular 03/23/2020 Administered Covid Moderna Unknown 08/02/2020 Administered Covid Moderna Unknown 07/01/2020 Administered Boostrix IM Intramuscular 10/28/2024 Administered Arexvy IM Intramuscular 05/13/2024 Administered Fluzone High Dose IM Intramuscular 04/08/2024 Administered Pneumovax-23 (pneumococccal vaccine polyvalent)2 years or older IM Intramuscular 08/06/2013 Administered Prevnar PCV-13 (Pneumococcal conjugate 13) IM Intramuscular 12/16/2019 Administered Prevnar PCV-20 (Pneumococcal conjugate 20) IM Intramuscular 04/23/2022 Administered FLUZONE 6MO - OLDER IM Intramuscular 03/11/2019 Administer ed Social History Tobacco Use: Social History Observation [...] complication (E11.69) Active confirmed Problem Mixed hyperlipidemia (433802322) Mixed hyperlipidemia (E78.2) Active confirmed Problem Tobacco user (507504471) Nicotine dependence, cigarettes, uncomplicated (F17.210) Active confirmed Problem Adjustment disorder with depressed mood (76367225) Adjustment disorder with depressed mood (F43.21) Active confirmed Problem Panlobular emphysema (4339458) Panlobular emphysema (J43.1) Active confirmed Problem Acute exacerbation of chronic obstructive airways disease (487276111) COPD with exacerbation (J44.1) Active confirmed Problem Hypothyroidism (56452705) Hypothyroidism (acquired) (E03.9) Active confirmed Problem Chronic obstructive pulmonary disease (17808501) Asthma with COPD (J44.9) Active confirmed Problem Neuropathy (520812652) Neuropathy (G62.9) Active confirmed Problem Hyperlipidemia (81819250) Hyperlipemia, idiopathic familial (E78.5) Active confirmed Problem Essential hypertension (22784033) Hypertension, essential (I10) Active confirmed Problem Tubular adenoma of colon (191228976) Tubular adenoma of colon (D12.6) Active confirmed Problem Mammography abnormal (054457697) Abnormal mammogram of right breast (R92.8) Active confirmed Problem Recurrent falls (970168858) Frequent falls (R29.6) Active confirmed Problem Chronic fatigue syndrome (98145593) Chronic fatigue (R53.82) Active confirmed Problem Obstructive sleep apnea (57773686) Obstructive sleep apnea (G47.33) Active confirmed Problem Ataxia (04985176) Ataxia (R27.0) Active confirm ed Problem Sciatica (16817663) Right sided sciatica (M54.31) Active confirmed Problem Adult health examination (108232247) Healthcare maintenance (Z00.00) Active confirmed Problem Retinal hemorrhage (77496665) Retinal hemorrhage of left eye (H35.62) Active confirmed Problem Tobacco user (239112407) Nicotine dependence with current use (F17.200) Active confirmed Problem Type II diabetes mellitus without complication (903578739) New onset type 2 diabetes mellitus (E11.9) Active confirmed Vital Signs Heart Rate 80 /min 02/15/2025 Temperature 97.5 degrees Fahrenheit 02/15/2025 Blood pressure diastolic 80 mm Hg 02/15/2025 Height 5 ft 5 in in 02/15/2025 Blood pressure systolic 154 mm Hg 02/15/2025 Weight 157 lbs 02/15/2025 BMI 26.12 kg/m2 02/15/2025 Encounters Encounter Location Date Provider Diagnosis [facility] [address] [place] [address] 09/26/2024 Provider Migration [facility] [address] [place] [address] 04/08/2024 Brien Besson Hypothyroidism (acquired) E03.9 ; Panlobular emphysema J43.1 ; Hypertension, essential I10 ; Nicotine dependence, cigarettes, uncomplicated F17.210 and Immunization(s) administered Z23 [facility] [address] [place] [address] 05/13/2024 Brien Besson Hypothyroidism (acquired) E03.9 ; Hypertension, essential I10 ; Nicotine dependence, cigarettes, uncomplicated F17.210 ; Chronic fatigue R53.82 ; Healthcare maintenance Z00.00 ; Vitamin B12 deficiency E53.8 and Immunization(s) administered Z23 [facility] [address] [place] [address] 08/05/2024 Brien Besson Hypothyroidism (acquired) E03.9 and Tremor R25.1 [facility] [address] [place], [place] [address] 10/28/2024 Brien Besson Hypothyroidism (acquired) E03.9 ; Panlobular emphysema J43.1 ; Hyperlipemia, idiopathic familial E78.5 ; Hypertension, essential I10 ; Type 2 diabetes mellitus with other specified complication E11.69 ; COPD with exacerbation J44.1 ; Vitamin B12 deficiency E53.8 and Encounter for immunization Z23 [facility] [address] [place] [address] 02/03/2025 Brien Besson Dizziness R42 and Orthostatic hypotension I95.1 [facility] [address] [facility] [address] [place] [address] 02/10/2025 Brien Besson Adjustment disorder with depressed mood F43.21 ; Orthostatic hypotension I95.1 ; Prediabetes R73.03 and Postural dizziness R42 [facility] [address] [place], [place] [address] 02/15/2025 Brien Besson Immunization(s) administered Z23 ; COPD with exacerbation J44.1 ; Adjustment disorder with depressed mood F43.21 ; Hypertension, essential I10 and Dizziness R42 [facility] [address] [place], [place] [address] 05/14/2024 Brien Besson [facility] [address] [facility] [place] [address] 08/07/2024 Brien Besson [facility] [address] [facility] [address] [place], [place] [address] 01/01/2025 Brien Besson Breast cancer screening by mammogram Z12.31 [facility] [address] [place], [place] [address] 01/12/2025 Brien Besson [facility] [address] [facility] [address] [place], [place] [address] 01/07/2025 Brien Besson [facility] [address] [facility] [address] [place], [place] [address] 01/07/2025 Brien Besson Breast cancer screening by mammogram Z12.31 Assessments Encounter Date Diagnosis (ICD Code) Assessment Notes Treatment Notes Treatment Clinical Notes Section Notes 04/08/2024 Panlobular emphysema (ICD-10 - J43.1) Stable. On inhalers. 04/08/2024 Hypothyroidism (acquired) (ICD-10 - E03.9) Clinically euthyroid. On stable dose of Synthroid. No changes in symptoms. At next month's Medicare wellness exam will draw thyroid panel 01/01/2025 Breast cancer screening by mammogram (ICD-10 [...] and will follow up in a month. 02/15/2025 COPD with exacerbation (ICD-10 - J44.1) Refill albuterol inhaler to use PRN 02/15/2025 Immunization(s) administered (ICD-10 - Z23) 02/10/2025 Adjustment disorder with depressed mood (ICD-10 [...] hypovolemia, although patient has moist mucous membranes. 10/28/2024 Panlobular emphysema (ICD-10 - J43.1) Discussed smoking cessation, compliant with Trelegy 10/28/2024 Hypothyroidism (acquired) (ICD-10 - E03.9) Clinically appears euthyroid. Will check labs today. I will review labs personally. 08/05/2024 Hypothyroidism (acquired) (ICD-10 - E03.9) TSH [...] look at other electrolytes for potential causes. 05/13/2024 Hypothyroidism (acquired) (ICD-10 - E03.9) - [...] plan monitoring renal function on CMP today 05/13/2024 Nicotine dependence, cigarettes, uncomplicated (ICD-10 - F17.210) - Has quit smoking. Remains on Wellbutrin. - Discussed ongoing strategies to remain stopped and congratulated patient - continue wellbutrin as below 10/28/2024 Hyperlipemia, idiopathic familial (ICD-10 - E78.5) 02/10/2025 Prediabetes (ICD-10 - R73.03) Patient's last A1c was 5.8. She endorses that she is only eating 1 meal a day. Will D/c metformin in light of dizziness with possible hypoglycemia + volume loss in stool. 02/15/2025 Adjustment disorder with depressed mood (ICD-10 - F43.21) mood well maintanined on paxil. Continue current regimen 04/08/2024 Hypertension, essential (ICD-10 - I10) Good blood pressure control. No changes in plan 02/15/2025 Hypertension, essential (ICD-10 - I10) Pt not currently on antihypertension medication. BP 154/80 likely elevated due to symptoms causing her some stress Discussed with pt at home blood pressure monitoring, pt voices understanding 04/08/2024 Nicotine dependence, cigarettes, uncomplicated (ICD-10 - F17.210) Has quit smoking. Has been out for 2 weeks. Remains on Wellbutrin. Discussed ongoing strategies to remain stopped and congratulated patient 02/10/2025 Postural dizziness (ICD-10 - R42) Patient [...] Can consider cortisol labs at next visit. 10/28/2024 Hypertension, essential (ICD-10 - I10) 05/13/2024 [...] with other specified complication (ICD-10 - E11.69) 02/15/2025 Dizziness (ICD-10 - R42) Pt looks much better today, she reports still feeling dizzy when standing or getting up from leaning over. She is still drinking lots of water and kaila D which is causing her to urinate more frequently. No need to for regemin adjustment today, will f/u in 2 wks 04/08/2024 Immunization(s) administered (ICD-10 - Z23) 05/13/2024 [...] Due for Tdap, this was given today 02/03/2025 Other Personally called infusion center to make sure infusion was available today. Will personally review labs. Close follow-up arranged. 02/15/2025 Other reevaluate in 2 wks Plan Of Treatment Pending Test Test Name Order Date X ray : Chest 06/25/2013 Sleep Study 12/10/2018 Mammogram : Bilateral 01/01/2025 H-ALK PHOS ISOENZYMES (FRACTIONATED) H-MISCELLANEOUS TEST 06/29/2015 C-TSH 03/11/2019 Pulmonary Function Test- Complete 2023 M-Complete Blood Count Auto Diff 018 M-Comprehensive Metabolic Panel 02/04/20 M-Lipid Panel 02/03/2018 M-Thyroid Stimulating Hormone 02/03/2018 M-Vitamin B12 02/03/2025 M-Vitamin B12 03/02/2021 M-Vitamin D 25 Hydroxy 03/02/2021 M-Vitamin D 25 Hydroxy 03/23/2020 Next Appt Details Provider Name:Brien Rojas, 03/17/2025 09:45:00 AM, [address], [place], [address], Insurance Providers Payer Name Payer Address Payer Phone Subscriber Number Group Number Insured Name Patient Relationship to Insured Coverage Start Date Coverage End Date [place]IC[place] [address] [place] [phone] [id number] ServandoIndira lilly Self - patient is the insured [facility] Insurance [address] [place] [phone] [id number] ServandoCorbya Self - patient is the insured [email or web address] [facility] [address] [place] [address] ACL McloudIndira lilly Self - patient is the insured Medications Administered Medication Instructions Date of Administration Dosage Notes Dexamethasone 4mg Injection 09/09/2021 4 mg Ceftriaxone 500 04/05/2017 500 mg Ceftriaxone 500 05/17/2014 500 mg Bicillin CR (adult dose) 12/05/2015 1.2 units Ceftriaxone 250 09/09/2021 250 mg Ceftriaxone 250 09/09/2021 250 mg Ceftriaxone 500 06/15/2015 500 mg Kenalog 40mg 04/05/2017 40 mg Kenalog 05/17/2014 1 mL Kenalog 09/15/2014 1 mL Kenalog 06/15/2015 1 mL Kenalog 12/05/2015 1 mL Kenalog 40mg 03/21/2017 40 mg Medical (General) History Medical History History ICD Code hyperlipidemia anxiety hypertension endometriosis colonoscopy June 2015 - tubular adeno ma Tobacco use disorder Z72.0 Moderate osteopenia on DEXA 12/11 - rx [facility] - repeated 04/14 and stable Normal mammogram 08/14 and 10/2022 and 12/23 and 02/15 Macular degeration left eye diabetes Normal LDCT 02/12 and normal 12/2023 Surgical History Surgery Date(Month/Year) vaginal partial hysterectomy 01/1985 left breast bx-benign 1990 D&C 11/1984 inj in lt eye for macular degeneration 0 11/25/2018 inj in lt eye for macular degeneration 0 06/2019 colonoscopy 05/24/2021 Hospitalization History Reason Date(Month/Year) reaction 03/2021 hysterectomy 1985
[2025-03-08 14:53] LABS: Free T4 (Free Thyroxine) 1.04 ng/dl (0.78-2.19)
[2025-03-08 15:08] LABS: Thyroid Stimulating Hormone 1.70 uIU/mL (0.465-4.68)
== END 2025-03-08 23:59 | disposition home or self-care (01) ==
LOC: LAB 13:39
PROVIDERS: PCP Internal Medicine Adolescent Medicine; Visit Provider Nurse Practitioner
DX: E89.0 Postprocedural hypothyroidism (principal)
CPT/HCPCS: 36415; 84439; 84443

== ENCOUNTER 2025-04-01 12:58 | Outpatient (CLI) | payer MEDICARE, OTHER, SELFPAY ==
--- NOTE | 2025-04-01 | CA_ITS ---
FINAL REPORT TECHNIQUE: Messer scale, color and spectral doppler images of the bilateral carotid arteries were obtained. CLINICAL HISTORY: Vertigo with falls FINDINGS: Peak systolic velocity in the right internal carotid artery is 140 cm/sec. The internal carotid to common carotid artery ratio is 1.9. There is no significant carotid artery stenosis. There is a mild plaque formation. The right vertebral artery is normal in direction. Peak systolic velocity in the left internal carotid artery is 90 cm/sec. The internal carotid to common carotid artery ratio is 1.2. There is no significant carotid artery stenosis. There is minimal plaque formation. The left vertebral artery is normal in direction. IMPRESSION: No ultrasound evidence of hemodynamically significant carotid artery stenosis. Normal peak systolic velocities and normal internal to common carotid artery ratios bilaterally. Reviewed, Interpreted and Dictated by Viv Summers MD Transcribed by Arabella Noel Authenticated and [facility]
== END 2025-04-01 23:59 | disposition home or self-care (01) ==
LOC: RT 13:00
PROVIDERS: PCP Internal Medicine Adolescent Medicine; Visit Provider Internal Medicine Adolescent Medicine
DX: R42 Dizziness and giddiness (principal)
CPT/HCPCS: 93880

== ENCOUNTER 2025-04-19 16:51 | Outpatient (CLI) | payer MEDICARE, OTHER, SELFPAY ==
--- NOTE | 2025-04-19 | MR_ITS ---
PROCEDURE INFORMATION: Exam: MR Head Without Contrast Exam date and time: 04/19/2025 5:01 PM Age: 69 years old Clinical indication: Dizziness, headaches TECHNIQUE: Imaging protocol: Magnetic resonance imaging of the head without contrast. COMPARISON: MR HEAD/BRAIN WO CON 09/26/2023 3:38 PM FINDINGS: Brain: Age-related involutional changes and chronic microvascular ischemic disease. No acute infarct. No mass effect or midline shift. No extra-axial collection. No acute intracranial hemorrhage. Basal cisterns are patent. Cerebral ventricles: Normal. No ventriculomegaly. Bones: Unremarkable. Paranasal sinuses: Normal as visualized. No acute sinusitis. Mastoid air cells: Normal as visualized. No mastoid effusion. Orbital cavities: Unremarkable. Soft tissues: Unremarkable. IMPRESSION: No acute infarct, hydrocephalus, acute intracranial hemorrhage, or mass effect.
== END 2025-04-19 23:59 | disposition home or self-care (01) ==
LOC: RAD 16:52
PROVIDERS: PCP Internal Medicine Adolescent Medicine; Visit Provider Internal Medicine Adolescent Medicine
DX: H53.2 Diplopia (principal); R42 Dizziness and giddiness
CPT/HCPCS: 70551

== ENCOUNTER 2025-04-27 16:03 | Outpatient (CLI) | payer MEDICARE, OTHER, SELFPAY ==
--- OUTSIDE RECORDS SUMMARY | 2024-09-26 16:30 | XMS_ITS ---
Author Organization [facility] Address [address] [place] [address] Care Team Providers Care Branch Or Department Chief Librarian Name Role Phone Brien Rojas Primary Care Provider Migration, Provider Unavailable Unavailable REASON FOR VISIT [facility] Conversion Encounter Medications Medication SIG (Take, Route, Frequency, Duration) Notes Start Date End Date Status Alendronate Sodium 35 MG 1 tab(s) orally once a week; Duration: 84 Active Cyanocobalamin 1000 MCG/ML as directed intramuscularly once weekly; Duration: 90 days 05/13/2024 Active Lipitor 40 MG 1 tab(s) orally once a day (at bedtime); Duration: 90 Active Ciclodan 8 % 1 diana applied topically twice daily; Duration: 24 days 12/25/2023 Active Paxil 30 MG TAKE 1 TABLET BY MOUTH DAILY; Duration: 90 Active Meloxicam 15 MG 1 tab(s) orally once a day; Duration: 30 days Active ZyrTEC Allergy 10 MG 1 tab(s) orally onc e a day Active ASPIR-LOW 81 MG 1 TAB(S) ORALLY ONCE A DAY; Duration: 30 DAYS *Please review for potential replacement for e-prescription and drug interaction check* Active Trelegy Ellipta 100 MCG-62.5 MCG-25 MCG/INH 1 PUFF(S) INHALED ONCE A DAY; Duration: 30 DAYS *Please review and pick correct [facility] If intended option is not shown, discontinue and re-order from Quick Search* 09/25/2023 Active Calcium 600 + D 600 MG-800 INTL UNITS 1 TAB(S) ORALLY 2 TIMES A DAY *Please review and pick correct strength-formulat [facility]. If intended option is not shown, discontinue and re-order from Quick Search* Active metFORMIN HCl 500 MG 1 tab(s) orally 2 times a day; Duration: 30 day(s) Active Synthroid 100 MCG 1 tab(s) orally once a day; Duration: 90 days Active buPROPion HCl ER (XL) 300 MG 1 tab(s) orally every 24 hours; Duration: 90 days Active Encounters Encounter Location Date Provider Diagnosis [facility] [address] [facility] [address] [place] [address] 09/26/2024 Provider Migration Plan Of Treatment Medication Medication Name Sig Start Date Stop Date Notes Meloxicam 15 MG 1 tab(s) orally once a day; Duration: 30 days Synthroid 100 MCG 1 tab(s) orally once a day; Duration: 90 days Next Appt Details Provider Name:Brien Rojas, 05/05/2025 11:15:00 AM, [address], [address], [place], [address], Progress Notes * Corby ALaDOB:1955 (69 yo F)Acc No.[id number]:09/26/2024 Patient: Indira THAPA Provider: Julissa herrera Migration :1955 A ge:68 Y S ex:Female Date:09/26/2024 Address:[address] [place] [address] [id number] Pcp:Brien Rojas Subjective: * Chief Complaints: * [facility] . [facility] * Medical History: * Medications: T aking ASPIR-LOW 81 MG ENTERIC COATED TABLET 1 TAB(S) ORALLY ONCE A DAY , Notes to Pharmacist: *Please review for potential replacement for e-prescription and drug interaction check*, Taking ZyrTEC Allergy 10 MG Tablet 1 tab(s) orally once a day , Taking Calcium 600 + D 600 MG-800 INTL UNITS TABLET 1 TAB(S) ORALLY 2 TIMES A DAY , Notes to Pharmacist: *Please review and pick correct strength-formulation from [employer] options. If intended option is not shown, discontinue and re-order from Quick Search*, Taking Trelegy Ellipta 100 MCG-62.5 MCG-25 MCG/INH POWDER 1 PUFF(S) INHALED ONCE A DAY , Notes to Pharmacist: *Please review and pick correct strength-formulation from [employer] options. If intended option is not shown, discontinue and re-order from Quick Search*, Taking Paxil 30 MG Tablet TAKE 1 TABLET BY MOUTH DAILY , Taking Ciclodan 8 % Solution 1 diana applied topically twice daily , Taking Alendronate Sodium 35 MG Tablet 1 tab(s) orally once a week , Taking Lipitor 40 MG Tablet 1 tab(s) orally once a day (at bedtime) , Taking Cyanocobalamin 1000 MCG/ML Solution as directed intramuscularly once weekly , Taking buPROPion HCl ER (XL) 300 MG Tablet Extended Release 24 Hour 1 tab(s) orally every 24 hours , Taking metFORMIN HCl 500 MG Tablet 1 tab(s) orally 2 times a day Objective: * Vitals: Assessment: Plan: * Treatment: * * Electronic signature of Prov nestor Migration on 04/27/2025 at 04:07 PM EST Sign off status: Pending * Provider: Julissa herrera Migration Date: 0 09/26/2024 Generated for Kristen rodriguez/Marlena/Giselle on: 06/27/2024 04:07 PM EST
--- OUTSIDE RECORDS SUMMARY | 2025-03-17 04:45 | XMS_ITS ---
Author Organization [facility] Address [address] [place] [address] Care Team Providers Care Technology Education Teacher Name Role Phone Brien Rojas Primary Care Provider [phone] Allergies No Known Allergies Results Component Value Reference Range Notes THYROID PANEL WITH TSH (2444 ) Reviewed date:03/20/2025 08:53:10 AM Interpretation: Performing Lab:[facility] [id number] [employer], BIO-IVT [id number] Rafael Lin Notes/Report: NON-FASTING; NON-FASTING; NON-FASTING; NON-FASTING; NON-FAST T3 UPTAKE 28 22-35 % T4 (THYROXINE), TOTAL 7.6 5.1-11.9 mcg/dL FREE T4 INDEX (T7) 2.1 1.4-3.8 TSH 3.30 0.40-4.50 mIU/L IRON, TIBC AND FERRITIN PANE L (5616) Reviewed date:03/20/2025 08:53:10 AM Interpretation: Performing Lab:[facility] [address]ne[address] [employer], BioDataNdouEJ[address] Rafael Lin Notes/Report: NON-FASTING; NON-FASTING; NON-FASTING; NON-FASTING; NON-FAST IRON, TOTAL 55 45-160 mcg/dL IRON BINDING CAPACITY 370 250-450 mc g/dL (calc) % SATURATION 15 16-45 % (calc) FERRITIN 9 16-288 ng/mL LIPID PANEL, STANDARD (7600) Reviewed date:03/20/2025 08:53:10 AM Interpretation: Performing Lab:[facility] [id number] Tabt[employer]el [facility], [facility] CenterGeuoEI[address] Rafael Lin Notes/Report: NON-FASTING; NON-FASTING; NON-FASTING; NON-FASTING; NON-FAST CHOLESTEROL, TOTAL 134 <200 mg/dL HDL CHOLESTEROL 46 > OR = 50 mg/dL TRIGLYCERIDES 96 <150 mg/dL LDL-CHOLESTEROL 70 Reference range: <100 Desirable range <100 mg/dL for primary prevention; <70 mg/dL for patients with CHD or diabetic patients with > or = 2 CHD risk factors. LDL-C is now calculated using the Zeus-Uriostegui calculation, which is a validated novel method providing better accuracy than the Friedewald equation in the estimation of LDL-C. Zeus WHITAKER et al. RICHAR. 2013;310(19): 0561-2029 (http://[employer]/faq/YUF241) CHOL/HDLC RATIO 2.9 <5.0 (calc) NON HDL CHOLESTEROL 88 <130 mg/dL (calc) For patients with diabetes plus 1 major ASCVD risk factor, treating to a non-HDL-C goal of <100 mg/dL (LDL-C of <70 mg/dL) is considered a therapeutic option. COMPREHENSIVE METABOLIC PANE (69511) Reviewed date:03/20/2025 08:53:10 AM Interpretation: Performing Lab:[facility] [id number] [employer] [facility], [facility] CenterXklkUF[address] Rafael Lin Notes/Report: NON-FASTING; NON-FASTING; NON-FASTING; NON-FASTING; NON-FAST GLUCOSE 95 65-99 mg/dL Fasting reference interval UREA NITROGEN (BUN) 36 7-25 mg/dL CREATININE 0.89 0.60-1.00 mg/dL EGFR 70 > OR = 60 mL/min/1.73m2 BUN/CREATININE RATIO 40 6-22 (calc) SODIUM 145 135-146 mmol/L POTASSIUM 3.9 3.5-5.3 mmol/L CHLORIDE 113 98-110 mmol/L CARBON DIOXIDE 28 20-32 mmol/L CALCIUM 9.2 8.6-10.4 mg/dL PROTEIN, TOTAL 5.9 6.1-8.1 g/dL ALBUMIN 3.7 3.6-5.1 g/dL GLOBULIN 2.2 1.9-3.7 g/dL (calc) ALBUMIN/GLOBULIN RATIO 1.7 1.0-2.5 (calc) BILIRUBIN, TOTAL 0.3 0.2-1.2 mg/dL ALKALINE PHOSPHATASE 93 37-153 U/L AST 17 10-35 U/L ALT 11 6-29 U/L MAGNESIUM (622) Reviewed date:03/20/2025 08:53:10 AM Interpretation: Performing Lab:[facility], [facility] Pqhf1305 [employer], BIO-IVT GroupAtudPR[address] Rafael Lin Notes/Report: NON-FASTING; NON-FASTING; NON-FASTING; NON-FASTING; NON-FAST MAGNESIUM 2.0 1.5-2.5 mg/dL CBC (INCLUDES DIFF/PLT) (639 9) Reviewed date:03/20/2025 08:53:10 AM Interpretation: Performing Lab:[facility] [id number] [employer], BIO-IVT GroupHzwgOW[address] Rafael Lin Notes/Report: NON-FASTING; NON-FASTING; NON-FASTING; NON-FASTING; NON-FAST WHITE BLOOD CELL COUNT 7.3 3.8-10.8 Thousand/uL RED BLOOD CELL COUNT 3.82 3.80-5.10 Million/uL HEMOGLOBIN 9.9 11.7-15.5 g/dL HEMATOCRIT 33.2 35.0-45.0 % MCV 86.9 80.0-100.0 fL MCH 25.9 27.0-33.0 pg MCHC 29.8 32.0-36.0 g/dL red cell parameters and the patient's clinical condition. For adults, a slight decrease in the calculated MCHC value (in the range of 30 to 32 g/dL) is most likely not clinically significant; however, it should be interpreted with caution in correlation with other RDW 16.2 11.0-15.0 % PLATELET COUNT 328 140-400 Thousand/uL MPV 10.7 7.5-12.5 fL ABSOLUTE NEUTROPHILS 4672 6273-1235 cells/uL ABSOLUTE LYMPHOCYTES 5934 572-4442 cells/uL ABSOLUTE MONOCYTES 548 200-950 cells/uL ABSOLUTE EOSINOPHILS 146 15-500 cells/uL ABSOLUTE BASOPHILS 37 0-200 cells/uL NEUTROPHILS 64 LYMPHOCYTES 26.0 MONOCYTES 7.5 EOSINOPHILS 2.0 BASOPHILS 0.5 VITAMIN B12 (927) Reviewed date:03/20/2025 08:53:10 AM Interpretation: Performing Lab:[facility], [facility] [id number] [facility]bte[facility], [facility] CenterSutcTD[address] Rafael Lin Notes/Report: NON-FASTING; NON-FASTING; NON-FASTING; NON-FASTING; NON-FAST VITAMIN B12 151 739-4780 pg/mL Please Note: Although the reference range for vitamin B12 is 200-1100 pg/mL, it has been reported that between 5 and 10% of patients with values between 200 and 400 pg/mL may experience neuropsychiatric and hematologic abnormalities due to occult B12 deficiency; less than 1% of patients with values above 400 pg/mL will have symptoms. TEST AUTHORIZATION Reviewed date:03/20/2025 08:53:10 AM Interpretation: Performing Lab:[facility], [facility] [id number] TabtorFormerly [facility], [facility], [facility] CenterRaepTP[address] Rafael Lin Notes/Report: NON-FASTING; NON-FASTING; NON-FASTING; NON-FASTING; NON-FAST TEST NAME: IRON, TIBC AND FERRITIN PANEL TEST CODE: [id number] CLIENT CONTACT: ADEOLA QUILES REPORT ALWAYS MESSAGE SIGNATURE The laboratory testing on this patient was verbally requested or confirmed by the ordering physician or his or her authorized traffic representative after contact with an employee of [facility]. Federal regulations require that we maintain on file written authorization for all laboratory testing. Accordingly we are asking that the ordering physician or his or her authorized traffic representative sign a copy of this report and promptly return it to the client service professional. Signature: COMMENT Please fax this signed form to [phone]. Please do not attempt to return this document by other methods. Documents will not be viewed by a traffic representative. Please do not use this fax number for other service requests. CAROTID DUPLEX Reviewed date:04/06/2025 10:02:18 AM Interpretation: Performing Lab: Notes/Report: Reason For Referral Reason carotid dopplers Diagnosis 1 Vertigo (R42) Referral Organization [facility] Referring Provider First Name Brien Referring Provider Last Name Bob Referring Provider Speciality Internal M edicine Referred Organization [facility] Referred Address [address], [place],[address],[place] Referred Provider Specialty Diagnostic R adiology General Notes Teodora Mccarthy 2024 11:34:16 AM >sent to [facility] to schedule Referral Priority Routine REASON FOR VISIT 1 month f/u-still c/o dizziness, ENT stated that she had fluid in her rt ear-was given nasal spray but it makes the dizziness worse Medications Medication SIG (Take, Route, Frequency, Duration) Notes Start Date End Date Status Alendronate Sodium 35 MG 1 tab(s) orally once a week; Duration: 84 Active Triamterene-HCTZ 37.5-25 MG 1 tablet in the morning Orally Once a day; Duration: 30 days 03/17/2025 Active Synthroid 75 MCG 1 tab(s) orally once a day; Duration: 90 days Active Trelegy Ellipta 100-62.5-25 MCG/ACT INHALE 1 PUFF BY MOUTH DAILY; Duration: 30 days Active Atorvastatin Calcium 40 MG TAKE 1 TABLET BY MOUTH DAILY AT BEDTIME; Duration: 90 Active ASPIR-LOW 81 MG 1 TAB(S) ORALLY ONCE A DAY; Duration: 30 DAYS Active ZyrTEC Allergy 10 MG 1 tab(s) orally onc e a day Active Calcium 600 + D 600 MG-800 INTL UNITS 1 TAB(S) ORALLY 2 TIMES A DAY Active PARoxetine HCl 30 MG TAKE 1 TABLET BY MO UT DAILY; Duration: 90 Active Meloxicam 15 MG 1 tab(s) orally once a day; Duration: 90 days Active Albuterol Sulfate HFA 108 (90 Base) MCG/ACT 2 puffs Inhalation every 4 hrs; Duration: 30 days As needed 02/15/2025 Active Social History Tobacco Use: Social History Observation Description Date Details (start date - stop date) Former Smoker NA - NA Tobacco Control (Standard) Question Answer Notes Tobacco use: Former smoker How long has it been since you last smoked? 3-6 months Vital Signs Temperature 97.6 degrees Fahrenheit 03/17/20 25 Blood pressure systolic 114 mm Hg 03/17/20 25 Blood pressure diastolic 64 mm Hg 025 Heart Rate 100 /min 03/17/2025 Height 5 ft 5 in in 03/17/2025 Weight 158.2 lbs 03/17/2025 BMI 26.32 kg/m2 03/17/2025 Encounters Encounter Location Date Provider Diagnosis [facility] [address] [place] [address] 03/17/2025 Brien Rojas Vertigo R42 ; Hypothyroidism (acquired) E03.9 ; Hyperlipemia, idiopathic familial E78.5 and Hypertension, essential I10 Assessments Encounter Date Diagnosis (ICD Code) Assessment Notes Treatment Notes Treatment Clinical Notes Section Notes 03/17/2025 Vertigo (ICD-10 - R42) Trial of thiazide diuretics to help with vertigo. Short-term follow-up. High risk for carotid occlusion given her history of smoking hyperlipidemia , check carotid Dopplers. All reviewed personally 03/17/2025 Hypothyroidism (acquired) (ICD-10 - E03.9) Check thyroid function. Has previously been on stable dose of levothyroxine. 03/17/2025 Hyperlipemia, idiopathic familial (ICD-10 - E78.5) Checkup labs and lipid profile 03/17/2025 Hypertension, essential (ICD-10 - I10) Blood pressure is not elevated, will see back in 4 weeks and watch carefully with the addition of diuretic therapy Plan Of Treatment Medication Medication Name Sig Start Date Stop Date Notes Triamterene-HCTZ 37.5-25 MG 1 tablet in the morning Orally Once a day; Duration: 30 days 03/17/2025 Treatment Notes Assessment Notes Vertigo Trial of thiazide diuretics to help with vertigo. Short-term follow-up. High risk for carotid occlusion given her history of smoking hyperlipidemia, check carotid Dopplers. All reviewed personally Hypothyroidism (acquired) Check thyroid function. Has previously been on stable dose of levothyroxine. Hyperlipemia, idiopathic familial Checku p labs and lipid profile Hypertension, essential Blood pressure i s not elevated, will see back in 4 weeks and watch carefully with the addition of diuretic therapy Referrals Referral Date Details 03/17/2025 03/17/2025, carotid dopplers, [address], [place], [address], Next Appt Details Follow Up: prn, Reason: Provider Name:Brien Thurstonson, 05/05/2025 11:15:00 AM, [address], [address], [place], [address], Progress Notes * Corby RIVERAaDOB:1955 (69 yo F)Acc No.[id number]:03/17/2025 Progress Notes Patient: Indira THAPA Provider: Steven Rojas MD :1955 A ge:69 Y S ex:Female Date:03/17/2025 Address:[address] [place] [address] [place], [id number] Subjective: * Chief Complaints: * 1 . 1 month f/u-still c/o dizziness. 2. ENT stated that she had fluid in her rt ear-was given nasal spray but it makes the dizziness worse. * HPI: g en: History as above, ENT visit was not helpful about her dizziness. She reports vertigo symptoms when she moves around and especially when she is walking and turning her head. Has not fallen. Reviewed MRI of brain with her. Overall feels little bit better psychologically after going through the early part of divorce proceedings. * Medical History: H yperlipidemia, Anxiety, Hypertension, Endometriosis, colonoscopy June 2015 - tubular adenoma, Tobacco use disorder, Moderate osteopenia on DEXA 12/11 - rx started - repeated 04/14 and stable, Normal mammogram 08/14 and 10/2022 and 01/14 and 02/15, Macular degeration left eye, Diabetes, Normal LDCT 02/12 and normal 12/2023. * Surgical History: v aginal partial hysterectomy [...] pernicious anemia. M aternal Grand Father: , [place]. M aternal Grand Mother: , stroke. P [...] 1 TAB(S) ORALLY ONCE A DAY , Taking ZyrTEC Allergy 10 MG Tablet 1 tab(s) orally once a day , Taking Calcium 600 + D 600 MG-800 INTL UNITS TABLET 1 TAB(S) ORALLY 2 TIMES A DAY , Taking Alendronate Sodium 35 MG Tablet 1 tab(s) orally once a week , Taking Synthroid 75 MCG Tablet 1 tab(s) orally once a day , Taking Trelegy Ellipta 100-62.5-25 MCG/ACT Aerosol Powder Breath Activated INHALE 1 PUFF BY MOUTH DAILY , Taking Atorvastatin Calcium 40 MG Tablet TAKE 1 TABLET BY MOUTH DAILY AT BEDTIME , Taking Albuterol Sulfate HFA 108 (90 Base) MCG/ACT Aerosol Solution 2 puffs Inhalation every 4 hrs As needed, Taking PARoxetine HCl 30 MG Tablet TAKE 1 TABLET BY MOUTH DAILY , Taking Meloxicam 15 MG Tablet 1 tab(s) orally once a day , Medication List reviewed and reconciled with the patient * Allergies: N .K.D.A. Objective: * Vitals: N urse: jl, Pain: 0, Temp: 97.6, RR: 16, HR: 100, BP: 114/64, Ht: 5 ft 5 in, Wt: 158.2, BMI:26.32. * Examination: G eneral Examination: General P leasant and Cooperative, NAD on RA,. Heart: R egular Rate and Rhythm, no murmur, rubs or gallops. Lungs: L CTAB, No wheezes, crackles or rhonchi, Good air movement,. D oes have inducible vertigo symptoms when she stands up and moves around rapidly or when she moves her head from [id number]. No extraocular motion abnormalities or other cranial nerve deficits. Assessment: * Assessment: 1. V ertigo - R42 (Primary) 2 . H ypothyroidism (acquired) - E03.9 ? 3 . H yperlipemia, idiopathic familial - E78.5 4 . H ypertension, essential - I10 Plan: * Treatment: Value Reference Range T 3 UPTAKE 28 22-35 - % * T 4 (THYROXINE), TOTAL 7.6 5.1-11.9 - mcg/dL * F REE T4 INDEX (T7) 2.1 1.4-3.8 - * T SH 3.30 0.40-4.50 - mIU/L * Ronny Quilesi N 03/18/20 02:41:09 PM EDT > eft vmThis lab was reviewed by Brien Rojas on 03/20/2025 at 08:53 AM EDT ?LAB: LIPID PANEL, STANDARD (7600)* Value Reference Range T RIGLYCERIDES 96 <150 - mg/dL * C HOLESTEROL, TOTAL 134 <200 - mg/dL * H DL CHOLESTEROL 46 L > OR = 50 - mg/dL * L DL-CHOLESTEROL 70 - mg/dL (calc) * C HOL/HDLC RATIO 2.9 <5.0 - (calc) * N ON HDL CHOLESTEROL 88 <130 - mg/dL (calc) * JuddRonny vitali N 03/18/20 02:41:09 PM EDT > eft vmThis lab was reviewed by Brien Rojas on 03/20/2025 at 08:53 AM EDT ?LAB: COMPREHENSIVE METABOLIC PANEL (08896)* Value Reference Range G LUCOSE 95 65-99 - mg/dL * U KRISTY NITROGEN (BUN) 36 H 7-25 - mg/dL * C REATININE 0.89 0.60-1.00 - mg/dL * B UN/CREATININE RATIO 40 H 6-22 - (calc) * S ODIUM 145 135-146 - mmol/L * P OTASSIUM 3.9 3.5-5.3 - mmol/L * C HLORIDE 113 H 98-110 - mmol/L * C ARBON DIOXIDE 28 20-32 - mmol/L * C ALCIUM 9.2 8.6-10.4 - mg/dL * P ROTEIN, TOTAL 5.9 L 6.1-8.1 - g/dL * A LBUMIN 3.7 3.6-5.1 - g/dL * G LOBULIN 2.2 1.9-3.7 - g/dL (calc ) * A LBUMIN/GLOBULIN RATIO 1.7 1.0-2.5 - (calc) * B ILIRUBIN, TOTAL 0.3 0.2-1.2 - mg/dL * A LKALINE PHOSPHATASE 93 37-153 - U/L * A ST 17 10-35 - U/L * A LT 11 6-29 - U/L * E GFR 70 > OR = 60 - mL/min/1 .73m2 * Lima Quiles N 03/18/20 02:41:09 PM EDT > eft vmThis lab was reviewed by Brien Rojas on 03/20/2025 at 08:53 AM EDT ?LAB: MAGNESIUM (622)* Value Reference Range M AGNESIUM 2.0 1.5-2.5 - mg/dL * Lima Quiles N 03/18/20 02:41:09 PM EDT > eft vmThis lab was reviewed by Brien Rojas on 03/20/2025 at 08:53 AM EDT ?LAB: CBC (INCLUDES DIFF/PLT) (7865)* Value Reference Range W ABDOUL BLOOD CELL COUNT 7.3 3.8-10.8 - Thousan d/uL * R ED BLOOD CELL COUNT 3.82 3.80-5.10 - Million/ uL * H EMOGLOBIN 9.9 L 11.7-15.5 - g/dL * H EMATOCRIT 33.2 L 35.0-45.0 - % * M CV 86.9 80.0-100.0 - fL * M CH 25.9 L 27.0-33.0 - pg * M CHC 29.8 L 32.0-36.0 - g/dL * R DW 16.2 H 11.0-15.0 - % * P LATELET COUNT 328 140-400 - Thousand/u L * N EUTROPHILS 64 - % * A BSOLUTE NEUTROPHILS 4672 5660-7433 - cells/uL * L YMPHOCYTES 26.0 - % * A BSOLUTE LYMPHOCYTES 9029 019-1602 - cells/uL * M ONOCYTES 7.5 - % * A BSOLUTE MONOCYTES 548 200-950 - cells/uL * E OSINOPHILS 2.0 - % * A BSOLUTE EOSINOPHILS 146 15-500 - cells/uL * B ASOPHILS 0.5 - % * A BSOLUTE BASOPHILS 37 0-200 - cells/uL * M PV 10.7 7.5-12.5 - fL * Lima Quiles 03/18/20 02:41:09 PM EDT > eft vmThis lab was reviewed by Brien Rojas on 03/20/2025 at 08:53 AM EDT ?Imaging: CAROTID DUPLEX* Teodora Mccarthy 03/17/2025 10: 39:38 AM EDT > no auth Daniele Alonso 04/02/2025 12:03:01 PM EDT >This DI was reviewed by Caro aClvillo on 04/06/2025 at 10:02 AM EDT * Notes: Trial of thiazide diuretics to help with vertigo. Short-term follow-up. High risk for carotid occlusion given her history of smoking hyperlipidemia, check carotid Dopplers. All reviewed personally? Referral To:Diagnostic Radiology ?Reason:carotid dopplers 2.?Hypothyroidism (acquired)?LAB: THYROID PANEL WITH TSH (7444)* Value Reference Range T 3 UPTAKE 28 22-35 - % * T 4 (THYROXINE), TOTAL 7.6 5.1-11.9 - mcg/dL * F REE T4 INDEX (T7) 2.1 1.4-3.8 - * T SH 3.30 0.40-4.50 - mIU/L * Lima Quiles 03/18/20 02:41:09 PM EDT > eft vmThis lab was reviewed by Brien Rojas on 03/20/2025 at 08:53 AM EDT ?LAB: LIPID PANEL, STANDARD (7600)* Value Reference Range T RIGLYCERIDES 96 <150 - mg/dL * C HOLESTEROL, TOTAL 134 <200 - mg/dL * H DL CHOLESTEROL 46 L > OR = 50 - mg/dL * L DL-CHOLESTEROL 70 - mg/dL (calc) * C HOL/HDLC RATIO 2.9 <5.0 - (calc) * N ON HDL CHOLESTEROL 88 <130 - mg/dL (calc) * Lima Quiles Lupe 03/18/20 02:41:09 PM EDT > eft vmThis lab was reviewed by Brien Rojas on 03/20/2025 at 08:53 AM EDT ?LAB: COMPREHENSIVE METABOLIC PANEL (74646)* Value Reference Range G LUCOSE 95 65-99 - mg/dL * U KRISTY NITROGEN (BUN) 36 H 7-25 - mg/dL * C REATININE 0.89 0.60-1.00 - mg/dL * B UN/CREATININE RATIO 40 H 6-22 - (calc) * S ODIUM 145 135-146 - mmol/L * P OTASSIUM 3.9 3.5-5.3 - mmol/L * C HLORIDE 113 H 98-110 - mmol/L * C ARBON DIOXIDE 28 20-32 - mmol/L * C ALCIUM 9.2 8.6-10.4 - mg/dL * P ROTEIN, TOTAL 5.9 L 6.1-8.1 - g/dL * A LBUMIN 3.7 3.6-5.1 - g/dL * G LOBULIN 2.2 1.9-3.7 - g/dL (calc ) * A LBUMIN/GLOBULIN RATIO 1.7 1.0-2.5 - (calc) * B ILIRUBIN, TOTAL 0.3 0.2-1.2 - mg/dL * A LKALINE PHOSPHATASE 93 37-153 - U/L * A ST 17 10-35 - U/L * A LT 11 6-29 - U/L * E GFR 70 > OR = 60 - mL/min/1 .73m2 * Ronny Quilesdao Andrade 03/18/20 02:41:09 PM EDT > eft vmThis lab was reviewed by Brien Rojas on 03/20/2025 at 08:53 AM EDT ?LAB: MAGNESIUM (622)* Value Reference Range M AGNESIUM 2.0 1.5-2.5 - mg/dL * EttaRonnydao Andrade 03/18/20 02:41:09 PM EDT > eft vmThis lab was reviewed by Brien Rojas on 03/20/2025 at 08:53 AM EDT ?LAB: CBC (INCLUDES DIFF/PLT) (5549)* Value Reference Range W ABDOUL BLOOD CELL COUNT 7.3 3.8-10.8 - Thousan d/uL * R ED BLOOD CELL COUNT 3.82 3.80-5.10 - Million/ uL * H EMOGLOBIN 9.9 L 11.7-15.5 - g/dL * H EMATOCRIT 33.2 L 35.0-45.0 - % * M CV 86.9 80.0-100.0 - fL * M CH 25.9 L 27.0-33.0 - pg * M CHC 29.8 L 32.0-36.0 - g/dL * R DW 16.2 H 11.0-15.0 - % * P LATELET COUNT 328 140-400 - Thousand/u L * N EUTROPHILS 64 - % * A BSOLUTE NEUTROPHILS 4672 7385-9107 - cells/uL * L YMPHOCYTES 26.0 - % * A BSOLUTE LYMPHOCYTES 6777 818-2574 - cells/uL * M ONOCYTES 7.5 - % * A BSOLUTE MONOCYTES 548 200-950 - cells/uL * E OSINOPHILS 2.0 - % * A BSOLUTE EOSINOPHILS 146 15-500 - cells/uL * B ASOPHILS 0.5 - % * A BSOLUTE BASOPHILS 37 0-200 - cells/uL * M PV 10.7 7.5-12.5 - fL * Lima Quiles 03/18/20 02:41:09 PM EDT > eft vmThis lab was reviewed by Brien Rojas on 03/20/2025 at 08:53 AM EDT Notes: Check thyroid function. Has previously been on stable dose of levothyroxine.??3.?Hyperlipemia, idiopathic familial?LAB: THYROID PANEL WITH TSH (7444)* Value Reference Range T 3 UPTAKE 28 22-35 - % * T 4 (THYROXINE), TOTAL 7.6 5.1-11.9 - mcg/dL * F REE T4 INDEX (T7) 2.1 1.4-3.8 - * T SH 3.30 0.40-4.50 - mIU/L * Lima Quiles N 03/18/20 02:41:09 PM EDT > eft vmThis lab was reviewed by Brien Rojas on 03/20/2025 at 08:53 AM EDT ?LAB: LIPID PANEL, STANDARD (7600)* Value Reference Range T RIGLYCERIDES 96 <150 - mg/dL * C HOLESTEROL, TOTAL 134 <200 - mg/dL * H DL CHOLESTEROL 46 L > OR = 50 - mg/dL * L DL-CHOLESTEROL 70 - mg/dL (calc) * C HOL/HDLC RATIO 2.9 <5.0 - (calc) * N ON HDL CHOLESTEROL 88 <130 - mg/dL (calc) * Lima Quiles N 03/18/20 02:41:09 PM EDT > eft vmThis lab was reviewed by Brien Rojas on 03/20/2025 at 08:53 AM EDT ?LAB: COMPREHENSIVE METABOLIC PANEL (07989)* Value Reference Range G LUCOSE 95 65-99 - mg/dL * U KRISTY NITROGEN (BUN) 36 H 7-25 - mg/dL * C REATININE 0.89 0.60-1.00 - mg/dL * B UN/CREATININE RATIO 40 H 6-22 - (calc) * S ODIUM 145 135-146 - mmol/L * P OTASSIUM 3.9 3.5-5.3 - mmol/L * C HLORIDE 113 H 98-110 - mmol/L * C ARBON DIOXIDE 28 20-32 - mmol/L * C ALCIUM 9.2 8.6-10.4 - mg/dL * P ROTEIN, TOTAL 5.9 L 6.1-8.1 - g/dL * A LBUMIN 3.7 3.6-5.1 - g/dL * G LOBULIN 2.2 1.9-3.7 - g/dL (calc ) * A LBUMIN/GLOBULIN RATIO 1.7 1.0-2.5 - (calc) * B ILIRUBIN, TOTAL 0.3 0.2-1.2 - mg/dL * A LKALINE PHOSPHATASE 93 37-153 - U/L * A ST 17 10-35 - U/L * A LT 11 6-29 - U/L * E GFR 70 > OR = 60 - mL/min/1 .73m2 * Lima Quiles Lupe 03/18/20 02:41:09 PM EDT > eft vmThis lab was reviewed by Brien Rojas on 03/20/2025 at 08:53 AM EDT ?LAB: MAGNESIUM (622)* Value Reference Range M AGNESIUM 2.0 1.5-2.5 - mg/dL * Lima Quiles Lupe 03/18/20 02:41:09 PM EDT > eft vmThis lab was reviewed by Brien Rojas on 03/20/2025 at 08:53 AM EDT ?LAB: CBC (INCLUDES DIFF/PLT) (0149)* Value Reference Range W ABDOUL BLOOD CELL COUNT 7.3 3.8-10.8 - Thousan d/uL * R ED BLOOD CELL COUNT 3.82 3.80-5.10 - Million/ uL * H EMOGLOBIN 9.9 L 11.7-15.5 - g/dL * H EMATOCRIT 33.2 L 35.0-45.0 - % * M CV 86.9 80.0-100.0 - fL * M CH 25.9 L 27.0-33.0 - pg * M CHC 29.8 L 32.0-36.0 - g/dL * R DW 16.2 H 11.0-15.0 - % * P LATELET COUNT 328 140-400 - Thousand/u L * N EUTROPHILS 64 - % * A BSOLUTE NEUTROPHILS 4672 9439-1891 - cells/uL * L YMPHOCYTES 26.0 - % * A BSOLUTE LYMPHOCYTES 9018 016-7924 - cells/uL * M ONOCYTES 7.5 - % * A BSOLUTE MONOCYTES 548 200-950 - cells/uL * E OSINOPHILS 2.0 - % * A BSOLUTE EOSINOPHILS 146 15-500 - cells/uL * B ASOPHILS 0.5 - % * A BSOLUTE BASOPHILS 37 0-200 - cells/uL * M PV 10.7 7.5-12.5 - fL * Lima Quiles Lupe 03/18/20 02:41:09 PM EDT > eft vmThis lab was reviewed by Brien Rojas on 03/20/2025 at 08:53 AM EDT Notes: Checkup labs and lipid profile??4.?Hypertension, essential? Notes: Blood pressure is not elevated, will see back in 4 weeks and watch carefully with the addition of diuretic therapy?? * Labs: * L ab: IRON, TIBC AND FERRITIN PANEL (5616) Value Reference Range I PAZ, TOTAL 55 45-160 - mcg/dL * I PAZ BINDING CAPACITY 370 250-450 - mcg/dL (c alc) * % SATURATION 15 L 16-45 - % (calc) * F ERRITIN 9 L 16-288 - ng/mL * [employer], support 02/23 05:35:04 : This order was created by the Interface.This lab was reviewed by Brien Rojas on 03/20/2025 at 08:53 AM EDT ?Lab: VITAMIN B12 (927)* Value Reference Range V ITAMIN B12 [phone] - pg/mL * [employer], support 02/23 05:35:07 : This order was created by the Interface.This lab was reviewed by Brien Rojas on 03/20/2025 at 08:53 AM EDT ?Lab: TEST AUTHORIZATION* Value Reference Range T EST NAME: IRON, TIBC AND FERRITIN PANEL - * T EST CODE: [id number] 927SB - * Annabel MCDOWELL CONTACT: ADEOLA ETTA - * [employer], support 02/23 05:35:07 : This order was created by the Interface.This lab was reviewed by Brien Rojas on 03/20/2025 at 08:53 AM EDT * Procedure Codes: G 2211 Complex e/m visit add on * Follow Up: p rn * * Sign off status: Completed true * Provider: Steven Rojas MD Date: 0 03/17/2025 Generated for Kristen rodriguez/Marlena/Giselle on: 1 06/27/2024 04:06 PM EST History and Physical Notes * HPI (History of Present Illness) Category Sub-Category Detail Notes Category Not es gen History as above, ENT visit was not helpful about her dizziness. She reports vertigo symptoms when she moves around and especially when she is walking and turning her head. Has not fallen. Reviewed MRI of brain with her. Overall feels little bit better psychologically after going through the early part of divorce proceedings Examination Category Sub-Category Detail Notes Category Not es General Examination Heart: Regular Rate and Rhythm, no murmur, rubs or gallops Does have inducible vertigo symptoms when she stands up and moves around rapidly or when she moves her head from [id number]. No extraocular motion abnormalities or other cranial nerve deficits Lungs: LCTAB, No wheezes, c rackles or rhonchi, Good air movement, General Pleasant and Coopera tive, NAD on RA, Consultation Request Notes Referral Date Referring Provider Referred Provider Not es 03/17/2025 Brien Rojas , carotid dopp lers
--- OUTSIDE RECORDS SUMMARY | 2025-04-07 05:45 | XMS_ITS ---
Author Organization [facility] Address [address] [facility] [address] [place] [address] Care Team Providers Care Back Gray Cloth Washer Name Role Phone Brien Rojas Primary Care Provider [phone] Allergies No Known Allergies Results Component Value Reference Range Notes MRI : Head, Without Contrast Reviewed date:04/26/2025 09:28:07 AM Interpretation: Performing Lab: Notes/Report: Reason For Referral Reason Dr Agrawal Diagnosis 1 Dizziness (R42) Referral Organization [facility] Referring Provider First Name Brien Referring Provider Last Name Bob Referring Provider Speciality Internal M edicine Referred Organization [facility] Referred Address [address] [facility] [address] [facility], Referred Provider Specialty Neurology General Notes Teodora Mccarthy 2024 11:34:06 AM >sent to Dr. Agrawal- They will contact patient to schedule Referral Priority Routine REASON FOR VISIT 3 week f/u, thinks she has cysts on the back of her head-is wanting to discuss having a scan done, when she lays on her back, the back of her head hurts and if she lays on her side, the sides of her head hurts, still having dizziness and blurriness, discuss if she needs an RSV injection? Medications Medication SIG (Take, Route, Frequency, Duration) Notes Start Date End Date Status Triamterene-HCTZ 37.5-25 MG 1 tablet in the morning Orally Once a day; Duration: 30 days 03/17/2025 Active Meloxicam 15 MG 1 tab(s) orally once a day; Duration: 90 days Active PARoxetine HCl 30 MG TAKE 1 TABLET BY MO UT DAILY; Duration: 90 Active Albuterol Sulfate HFA 108 (90 Base) MCG/ACT 2 puffs Inhalation every 4 hrs; Duration: 30 days As needed 02/15/2025 Active Atorvastatin Calcium 40 MG TAKE 1 [...] TAB(S) ORALLY 2 TIMES A DAY Active ZyrTEC Allergy 10 MG 1 tab(s) orally onc e a day Active ASPIR-LOW 81 MG 1 TAB(S) ORALLY ONCE A DAY; Duration: 30 DAYS Active Social History Tobacco Use: Social History Observation Description Date Details (start date - stop date) Former Smoker NA - NA Tobacco Control (Standard) Question Answer Notes Tobacco use: Former smoker How long has it been since you last smoked? 3-6 months Vital Signs Temperature 97.5 degrees Fahrenheit 04/07/20 25 Blood pressure systolic 124 mm Hg 04/07/20 25 Blood pressure diastolic 62 mm Hg 025 Heart Rate 104 /min 04/07/2025 Height 5 ft 5 in in 04/07/2025 Weight 154 lbs 04/07/2025 BMI 25.62 kg/m2 04/07/2025 Encounters Encounter Location Date Provider Diagnosis [facility] [address] [facility] [address] [place], [place] [address] 04/07/2025 Brien Rojas Dizziness R42 ; Ataxia R27.0 and Diplopia H53.2 Assessments Encounter Date Diagnosis (ICD Code) Assessment Notes Treatment Notes Treatment Clinical Notes Section Notes 04/07/2025 Dizziness (ICD-10 - R42) 04/07/2025 Ataxia (ICD-10 - R27.0) 04/07/2025 Diplopia (ICD-10 - H53.2) 04/07/2025 Other Reviewed patient's dizziness symptoms in detail. Seems to be a mixed phenomenon with some vestibular issues as well as perhaps central dizziness. Does not seem to be orthostatic. Blood pressure under good control, recent labs reviewed. Check MRI scan given structural risks and neurology referral. Plan Of Treatment Treatment Notes Assessment Notes Other Reviewed patient's dizziness symptoms in detail. Seems to be a mixed phenomenon with some vestibular issues as well as perhaps central dizziness. Does not seem to be orthostatic. Blood pressure under good control, recent labs reviewed. Check MRI scan given structural risks and neurology referral. Referrals Referral Date Details 04/07/2025 04/07/2025, Dr Agrawal , [address], [place], [address], Next Appt Details Follow Up: prn,4 Weeks, Reas on: Provider Name:Brien Rojas, 05/05/2025 11:15:00 AM, [address], [address], [place], [address], Progress Notes * Cecy ALB:1955 (69 yo F)Acc No.[id number]:04/07/2025 Progress Notes Patient: Indira THAPA Provider: Steven Rojas MD :1955 A ge:69 Y S ex:Female Date:04/07/2025 Address:[address] [place] [address] [id number] Subjective: * Chief Complaints: * 1 . 3 week f/u. 2. Thinks she has cysts on the back of her head-is wanting to discuss having a scan done. 3. When she lays on her back, the back of her head hurts and if she lays on her side, the sides of her head hurts. 4. Still having dizziness and blurriness. 5. discuss if she needs an RSV injection?. * HPI: g en: Has some random bumpy spots in her head, at the base of the skull on the right side, they have been there for a couple of years. She wonders if they are making her dizzy, she reports that her dizziness is worse and she feels very ataxic. Has not fallen but is having to use a cane at home. This is new for her. Self referred to ENT, nasal spray was prescribed which was not helpful and in fact made things worse. Some double vision. * Medical History: H yperlipidemia, Anxiety, Hypertension, Endometriosis, colonoscopy June 2015 - tubular adenoma, Tobacco use disorder, Moderate osteopenia on DEXA 12/11 - rx started - repeated 04/14 and stable, Normal mammogram 08/14 and 10/2022 and 01/14 and 02/15, Macular degeration left eye, Diabetes, Normal LDCT 02/12 and normal 12/2023, Normal carotid Dopplers 04/17. * Surgical History: v aginal partial hysterectomy [...] pernicious anemia. M aternal Grand Father: , [place]. M aternal Grand Mother: , stroke. P [...] tab(s) orally once a day , Taking Triamterene-HCTZ 37.5-25 MG Tablet 1 tablet in the morning Orally Once a day , Medication List reviewed and reconciled with the patient * Allergies: N .K.D.A. Objective: * Vitals: N urse: jl, Pain: 0, Temp: 97.5, RR: 18, HR: 104, BP: 124/62, Ht: 5 ft 5 in, Wt: 154, BMI:25.62. * Examination: G eneral Examination: N eeds to hold onto a couple things to get up and when she walked on the hallway holds onto the wall for support. However no other neurologic noted, cranial nerves are intact, heart rate regular. Cyst at the base of the skull seem to be occipital lymph nodes. Assessment: * Assessment: 1. D izziness - R42 (Primary) 2 . A taxia - R27.0 3 . D iplopia - H53.2 Plan: * Treatment: * ? Referral To: ?Reason:Dr Agrawal 2.?Ataxia?Imaging: MRI : Head, Without Contrast* Teodora Mccarthy 04/07/2025 11: 31:40 AM EDT > No Auth Required for CPT 93944QmmhwDaniele Arthur 04/23/2025 08:44:05 AM EDT >This DI was reviewed by Teodora Mccarthy on 04/26/2025 at 09:28 AM EST * 3.?Diplopia?Imaging: MRI : Head, Without Contrast* Teodora Mccarthy 04/07/2025 11: 31:40 AM EDT > No Auth Required for CPT 14424MkdzaDaniele Arthur 04/23/2025 08:44:05 AM EDT >This DI was reviewed by Teodora Mccarthy on 04/26/2025 at 09:28 AM EST * 4.?Others? Notes: Reviewed patient's dizziness symptoms in detail. Seems to be a mixed phenomenon with some vestibular issues as well as perhaps central dizziness. Does not seem to be orthostatic. Blood pressure under good control, recent labs reviewed. Check MRI scan given structural risks and neurology referral.?? * Procedure Codes: G 2211 Complex e/m visit add on * Follow Up: p rn,4 Weeks * * Sign off status: Completed true * Provider: Steven Rojas MD Date: Generated for Cabrerai jennifer/Marlena/eTransmitting on: 06/27/2024 04:06 PM EST History and Physical Notes * HPI (History of Present Illness) Category Sub-Category Detail Notes Category Not es Has some random bumpy spots in her head, at the base of the skull on the right side, they have been there for a couple of years. She wonders if they are making her dizzy, she reports that her dizziness is worse and she feels very ataxic. Has not fallen but is having to use a cane at home. This is new for her. Self referred to ENT, nasal spray was prescribed which was not helpful and in fact made things worse. Some double vision. Examination Category Sub-Category Detail Notes Category Not es General Examination Needs to hold onto a couple things to get up and when she walked on the hallway holds onto the wall for support. However no other neurologic noted, cranial nerves are intact, heart rate regular. Cyst at the base of the skull seem to be occipital lymph nodes Consultation Request Notes Referral Date Referring Provider Referred Provider Not markus 04/07/[address] Pavez
--- OUTSIDE RECORDS SUMMARY | 2025-04-26 04:21 | XMS_ITS ---
Author Organization [facility] Address [address] [facility] [address] [address] [facility] [address] [place] [address] Care Team Providers Care Financial Systems Analyst Name Role Phone Brien Rojas Primary Care Provider REASON FOR VISIT 14 day event monitor Encounters Encounter Location Date Provider Diagnosis [facility] [address] [facility] [address] [place] [address] 04/26/2025 Brien Bertrandpaul Postural dizziness R42 Assessments Encounter Date Diagnosis (ICD Code) Assessment Notes Treatment Notes Treatment Clinical Notes Section Notes 04/26/2025 Postural dizziness (ICD-10 - R42) Plan Of Treatment Pending Test Test Name Order Date Event recorder 14 day 04/26/2025 Next Appt Details Provider Name:Brien Rojas, 05/05/2025 11:15:00 AM, [address] [facility], [address], [place], [place], [address], Progress Notes * Corby ALaDOB:1955 (69 yo F)Acc No.[id number]:04/26/2025 Patient: Corby THAPAa :1955 A ge:69 Y S ex:Female Address:[facility] [place], [address] Subjective: * Chief Complaints: * 1 4 day event monitor * Medical History: * Surgical History: * Hospitalization/Major Diagno stic Procedure: * Medications: Objective: * Vitals: * Physical Examination: Assessment: * Assessment: 1. P ostural dizziness - R42 Plan: * Treatment: * Procedure Codes: * true * Date: Generated for Kristen Valera/Giselle on: 06/27/2024 04:06 PM EST
--- OUTSIDE RECORDS SUMMARY | 2025-04-27 16:07 | XMS_ITS | Patient Health Record ---
Author Organization [facility] Address [address] [place] [address] Care Team Providers Care Industrial Hygiene Engineer Name Role Phone Brien Rojas Primary Care Provider [phone] Migration, Provider Unavailable Unavailable Allergies No Known Allergies Results Component Value Reference Range Notes THYROID PANEL WITH TSH (8044 ) Reviewed date:03/20/2025 08:53:10 AM Interpretation: Performing Lab:DIEGO [facility] [id number] BomTrip.comtePlaid, FinomialVzqlYQ[address] Rafael Lin Notes/Report: NON-FASTING; NON-FASTING; NON-FASTING; NON-FASTING; NON-FAST T3 UPTAKE 28 22-35 % T4 (THYROXINE), TOTAL 7.6 5.1-11.9 mcg/dL FREE T4 INDEX (T7) 2.1 1.4-3.8 TSH 3.30 0.40-4.50 mIU/L IRON, TIBC AND FERRITIN PANE L (5616) Reviewed date:03/20/2025 08:53:10 AM Interpretation: Performing Lab:DIEGO IntelliDOTe1355 BomTrip.comtel Shane, LumenseHzlmDV[address] Rafael Lin Notes/Report: NON-FASTING; NON-FASTING; NON-FASTING; NON-FASTING; NON-FAST IRON, TOTAL 55 45-160 mcg/dL IRON BINDING CAPACITY 370 250-450 mc g/dL (calc) % SATURATION 15 16-45 % (calc) FERRITIN 9 16-288 ng/mL LIPID PANEL, STANDARD (4320) Reviewed date:03/20/2025 08:53:10 AM Interpretation: Performing Lab:[facility] Gfdl2834 [facility], [facility] CenterSxgxXB[address] Rafael Lin Notes/Report: NON-FASTING; NON-FASTING; NON-FASTING; NON-FASTING; [...] LDL-C. Zeus WHITAKER et al. RICHAR. 2013;310(19): 8709-5960 (http://Omnigy.Olista/faq/ONY088) CHOL/HDLC RATIO 2.9 <5.0 (calc) NON HDL CHOLESTEROL 88 <130 mg/dL (calc) For patients with diabetes plus 1 major ASCVD risk factor, treating to a non-HDL-C goal of <100 mg/dL (LDL-C of <70 mg/dL) is considered a therapeutic option. COMPREHENSIVE METABOLIC [facility] (36677) Reviewed date:03/20/2025 08:53:10 AM Interpretation: Performing Lab:[facility]GO [facility] Qqty8849 BomTrip.comtel [facility], [facility] CenterAapvFF[address] Rafael Lin Notes/Report: NON-FASTING; NON-FASTING; NON-FASTING; NON-FASTING; [...] (622) Reviewed date:03/20/2025 08:53:10 AM Interpretation: Performing Lab:[facility] Wwbz2233 Tangled, FinomialAmnwQX[address] Rafael Lin Notes/Report: NON-FASTING; NON-FASTING; NON-FASTING; NON-FASTING; NON-FAST MAGNESIUM 2.0 1.5-2.5 mg/dL CBC (INCLUDES DIFF/PLT) (639 9) Reviewed date:03/20/2025 08:53:10 AM Interpretation: Performing Lab:[facility]-Immye1355 Tangled, FinomialVhyvKF[address] Rafael Lin Notes/Report: NON-FASTING; NON-FASTING; NON-FASTING; NON-FASTING; NON-FAST WHITE BLOOD CELL COUNT 7.3 3.8-10.8 Thousand/uL RED BLOOD CELL COUNT 3.82 3.80-5.10 Million/uL HEMOGLOBIN 9.9 11.7-15.5 g/dL HEMATOCRIT 33.2 35.0-45.0 % MCV 86.9 80.0-100.0 fL MCH 25.9 27.0-33.0 pg MCHC 29.8 32.0-36.0 g/dL For adults, a slight decrease in the calculated MCHC value (in the range of 30 to 32 g/dL) is most likely not clinically significant; however, it should be interpreted with caution in correlation with other red cell parameters and the patient's clinical condition. RDW 16.2 11.0-15.0 % PLATELET COUNT 328 140-400 Thousand/uL MPV 10.7 7.5-12.5 fL ABSOLUTE NEUTROPHILS 4672 0620-1594 cells/uL ABSOLUTE LYMPHOCYTES 5413 119-9292 cells/uL ABSOLUTE MONOCYTES 548 200-950 cells/uL ABSOLUTE EOSINOPHILS 146 15-500 cells/uL ABSOLUTE BASOPHILS 37 0-200 cells/uL NEUTROPHILS 64 LYMPHOCYTES 26.0 MONOCYTES 7.5 EOSINOPHILS 2.0 BASOPHILS 0.5 VITAMIN B12 (927) Reviewed date:03/20/2025 08:53:10 AM Interpretation: Performing Lab:DIEGO, [facility] Fpum9932 [facility], Mercy HospitalFtefYO[address] Rafael Lin Notes/Report: NON-FASTING; NON-FASTING; NON-FASTING; NON-FASTING; NON-FAST VITAMIN B12 502 749-5459 pg/mL Please Note: Although the reference range [...] Reviewed date:03/20/2025 08:53:10 AM Interpretation: Performing Lab:DIEGO, [facility] Ngls4791 BomTrip.comRutherford Regional Health System, [facility] CenterCceoHE[address] Rafael Lin Notes/Report: NON-FASTING; NON-FASTING; NON-FASTING; NON-FASTING; NON-FAST TEST NAME: IRON, TIBC AND FERRITIN PANEL TEST CODE: 5616SB 927SB CLIENT CONTACT: ADEOLA QUILES REPORT ALWAYS MESSAGE SIGNATURE The laboratory testing on this patient was verbally requested or confirmed by the ordering physician or his or her authorized artist representative after contact with an employee of [employer]. Federal regulations require that we maintain on file written authorization for all laboratory testing. Accordingly we are asking that the ordering physician or his or her authorized artist representative sign a copy of this report and promptly return it to the client engagement specialist. Signature: COMMENT Please fax this signed form to [phone]. Please do not attempt to return this document by other methods. Documents will not be viewed by a artist representative. Please do not use this fax number for other service requests. CAROTID DUPLEX Reviewed date:04/06/2025 10:02:18 AM Interpretation: Performing Lab: Notes/Report: MRI : Head, Without Contrast Reviewed date:04/26/2025 09:28:07 AM Interpretation: Performing Lab: Notes/Report: H-FOL Reviewed date:02/05/2025 11:00:53 AM Interpretation: Performing Lab: Notes/Report: FOL 8.45 Normal Adult: 2.76->20 ng/mL Folate Deficent: 1.04-2.79ng/mL M-Thyroid Stimulating Hormon e Reviewed date:02/05/2025 11:00:53 AM Interpretation: Performing Lab: Notes/Report: TSH 1.60 0.465-4.68 uIU/mL M-Complete Blood Count Auto Diff Reviewed date:02/05/2025 [...] 0 IG% 0.3 NRBC# 0 IG# 0.02 CBC (INCLUDES DIFF/PLT) (639 9) Reviewed date:10/30/2024 08:15:44 AM Interpretation: Performing Lab:CB, [facility] [address], [place] AndreaTovlZB[address] Rafael Lin Notes/Report: NON-FASTING; NON-FASTING; NON-FASTING; NON-FASTING; NON-FAST FASTING:YES FASTING: YES WHITE BLOOD CELL COUNT 10.0 3.8-10.8 Thousand/uL RED BLOOD CELL COUNT 5.48 3.80-5.10 Million/uL [...] MPV 10.4 7.5-12.5 fL ABSOLUTE NEUTROPHILS 7160 6816-3715 cells/uL ABSOLUTE LYMPHOCYTES 2090 850-3900 cells/uL ABSOLUTE MONOCYTES 540 200-950 cells/uL ABSOLUTE EOSINOPHILS 180 15-500 cells/uL ABSOLUTE BASOPHILS 30 0-200 cells/uL NEUTROPHILS 71.6 LYMPHOCYTES 20.9 MONOCYTES 5.4 EOSINOPHILS 1.8 BASOPHILS 0.3 COMPREHENSIVE METABOLIC PANE (83514) Reviewed date:10/30/2024 08:15:44 AM Interpretation: Performing Lab:CB, [facility] [address], [facility] Medical CenterBrwsUW[address] Rafael Lin Notes/Report: NON-FASTING; NON-FASTING; NON-FASTING; NON-FASTING; [...] 16 10-35 U/L ALT 13 6-29 U/L THYROID PANEL WITH TSH (7444 ) Reviewed date:10/30/2024 08:15:44 AM Interpretation: Performing Lab:[facility]-Immye13[address] [employer], [facility] Medical CenterZdxrDM[address] Rafael Lin Notes/Report: NON-FASTING; NON-FASTING; NON-FASTING; NON-FASTING; NON-FAST FASTING:YES FASTING: YES T3 UPTAKE 27 22-35 % T4 (THYROXINE), TOTAL 10.6 5.1-11.9 mcg/dL FREE T4 INDEX (T7) 2.9 1.4-3.8 TSH 2.53 0.40-4.50 mIU/L VITAMIN B12 (927) Reviewed date:08/07/2024 02:01:49 PM Interpretation: Performing Lab:[facility]-Immye1355 BomTrip.comtel [place], [facility] CenterJquzOA[address] Rafael Lin Notes/Report: NON-FASTING; NON-FASTING; NON-FASTING; NON-FASTING VITAMIN B12 7195 035-7571 pg/mL MAGNESIUM (622) Reviewed date:08/07/2024 02:01:49 PM Interpretation: Performing Lab:[facility]-Immye1355 BomTrip.comtel [facility], [facility] CenterAutjHA[address] Rafael Lin Notes/Report: NON-FASTING; NON-FASTING; NON-FASTING; NON-FASTING MAGNESIUM 2.1 1.5-2.5 mg/dL BASIC METABOLIC PANEL (12892 ) Reviewed date:08/07/2024 02:01:49 PM Interpretation: Performing Lab:[facility]-Immye13[address] BlTravolver, [facility] Medical CenterZkohCK[address] Rafael Lin Notes/Report: NON-FASTING; NON-FASTING; NON-FASTING; NON-FASTING [...] 8.8 8.6-10.4 mg/dL THYROID PANEL WITH TSH (7444 ) Reviewed date:08/07/2024 02:01:49 PM Interpretation: Performing Lab:DIEGO, [facility] Twfo4289 [address], FinomialEgorQE[address] Rafael Lin Notes/Report: NON-FASTING; NON-FASTING; NON-FASTING; NON-FASTING T3 UPTAKE 33 22-35 % T4 (THYROXINE), TOTAL 14.5 5.1-11.9 mcg/dL FREE T4 INDEX (T7) 4.8 1.4-3.8 TSH 0.02 0.40-4.50 mIU/L CBC (INCLUDES DIFF/PLT) (639 9) Reviewed date:05/14/2024 02:53:29 PM Interpretation: Performing Lab:[facility] Eeio4883 [employer], FinomialYktmQM[address] Rafael Lin Notes/Report: WHITE BLOOD CELL COUNT 6.7 3.8-10.8 Thousand/uL RED BLOOD CELL COUNT 4.99 3.80-5.10 Million/uL [...] MPV 11.5 7.5-12.5 fL ABSOLUTE NEUTROPHILS 4348 9505-1587 cells/uL ABSOLUTE LYMPHOCYTES 8723 617-2949 cells/uL ABSOLUTE MONOCYTES 503 200-950 cells/uL ABSOLUTE EOSINOPHILS 147 15-500 cells/uL ABSOLUTE BASOPHILS 20 0-200 cells/uL NEUTROPHILS 64.9 LYMPHOCYTES 25.1 MONOCYTES 7.5 EOSINOPHILS 2.2 BASOPHILS 0.3 COMPREHENSIVE METABOLIC PANE L (91512) Reviewed date:05/14/2024 02:53:29 PM Interpretation: Performing Lab:DIE[facility] IntelliDOTe1355 [address], [facility] CenterMshvCW[address] Rafael Lin Notes/Report: GLUCOSE 85 65-99 mg/dL [...] Reviewed date:05/14/2024 02:53:28 PM Interpretation: Performing Lab:D[facility] IntelliDOTe1355 BomTrip.comtePlaid, [facility] CenterMnkhCI[address] Rafael Lin Notes/Report: T3 UPTAKE 31 22-35 % T4 (THYROXINE), TOTAL 13.7 5.1-11.9 mcg/dL FREE T4 INDEX (T7) 4.2 1.4-3.8 TSH 0.06 0.40-4.50 mIU/L H-VITB12 Reviewed date:02/05/2025 11:00:53 AM Interpretation: Performing Lab: Notes/Report: VITB12 838 239-931 pg/mL VITAMIN B12/FOLATE, SERUM PA RAMIREZ (7065) Reviewed date:10/30/2024 08:15:44 AM Interpretation: Performing Lab:[facility]-George Marche[address], George SmithRahfHI[address] Rafael Lin Notes/Report: NON-FASTING; NON-FASTING; NON-FASTING; NON-FASTING; NON-FAST FASTING:YES FASTING: YES VITAMIN B12 387 765-8228 pg/mL FOLATE, SERUM 5.9 Reference Range Low: <3.4 Borderline: 3.4-5.4 Normal: >5.4 LIPID PANEL, STANDARD (7600) Reviewed date:10/30/2024 08:15:44 AM Interpretation: Performing Lab:[facility]-George Marche[address], George AndreaZxpcMN[address] Rafael Lin Notes/Report: NON-FASTING; NON-FASTING; NON-FASTING; NON-FASTING; [...] LDL-C. Zeus SS et al. RICHAR. 2013;310(19): 8810-7242 (http://education.Olista/faq/YZU714) CHOL/HDLC RATIO 3.3 <5.0 (calc) NON HDL CHOLESTEROL 106 <130 mg/dL (calc) For patients with diabetes plus 1 major ASCVD risk factor, treating to a non-HDL-C goal of <100 mg/dL (LDL-C of <70 mg/dL) is considered a therapeutic option. M-Comprehensive Metabolic Pa ramirez Reviewed date:02/05/2025 11:00:53 [...] AGRATIO 1.6 1.1-1.8 ALP 106 38-126 U/L Reason For Referral Reason carotid dopplers Diagnosis 1 Vertigo (R42) Referral Organization [facility] Referring Provider First Name Brien Referring Provider Last Name Bob Referring Provider Speciality Internal edicine Referred Organization [facility] Referred Address [address] [place] [phone], Referred Provider Specialty Diagnostic R adiology General Notes Teodora Mccarthy 2024 11:34:16 AM >sent to [facility] to schedule Referral Priority Routine Reason Dr Agrawal Diagnosis 1 Dizziness (R42) Referral Organization [facility] Referring Provider First Name Brien Referring Provider Last Name Bob Referring Provider Speciality Internal edicine Referred Organization [facility] Referred Address [address] [place] [phone], Referred Provider Specialty Neurology General Notes Teodora Mccarthy 2024 11:34:06 AM >sent to Dr. Agrawal- They will contact patient to schedule Referral Priority Routine Medications Medication SIG (Take, Route, Frequency, Duration) [...] ONCE A DAY; Duration: 30 DAYS Active Triamterene-HCTZ 37.5-25 MG 1 tablet in the morning Orally Once a day; Duration: 30 days 03/17/2025 Active Meloxicam 15 MG 1 tab(s) orally once a day; Duration: 90 days Active PARoxetine HCl 30 MG TAKE 1 TABLET BY MO UTH DAILY; Duration: 90 Active Albuterol Sulfate HFA 108 (90 Base) MCG/ACT 2 puffs Inhalation every 4 hrs; Duration: 30 days As needed 02/15/2025 Active Atorvastatin Calcium 40 MG TAKE 1 TABLET BY MOUTH DAILY AT BEDTIME; Duration: 90 Active Immunizations Vaccine Route Administration Date Status [...] 04/08/2024 Administered Fluzone High Dose IM Intramuscular 02/15/2025 Administered Pneumovax 23 IM Intramuscular 03/02/2021 Administered [...] complication (E11.69) Active confirmed Problem Mixed hyperlipidemia (673161644) Mixed hyperlipidemia (E78.2) Active confirmed Problem Tobacco user (870485900) Nicotine dependence, cigarettes, uncomplicated (F17.210) Active confirmed Problem Adjustment disorder with depressed mood (15727278) Adjustment disorder with depressed mood (F43.21) Active confirmed Problem Panlobular emphysema (2467126) Panlobular emphysema (J43.1) Active confirmed Problem Acute exacerbation of chronic obstructive airways disease (362530070) COPD with exacerbation (J44.1) Active confirmed Problem Hypothyroidism (14254505) Hypothyroidism (acquired) (E03.9) Active confirmed Problem 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) (7955925896340043 7) Asthma with COPD (J44.9) Active confirmed Problem Neuropathy (394704050) Neuropathy (G62.9) Active confirmed Problem Hyperlipidemia (24988545) Hyperlipemia, idiopathic familial (E78.5) Active confirmed Problem Essential hypertension (28708396) Hypertension, essential (I10) Active confirmed Problem Tubular adenoma of colon (002383252) Tubular adenoma of colon (D12.6) Active confirmed Problem Mammography abnormal (633105324) Abnormal mammogram of right breast (R92.8) Active confirmed Problem Recurrent falls (058929851) Frequent falls (R29.6) Active confirmed Problem Chronic fatigue syndrome (25677835) Chronic fatigue (R53.82) Active confirmed Problem Obstructive sleep apnea (14709600) Obstructive sleep apnea (G47.33) Active confirmed Problem Ataxia (21995724) Ataxia (R27.0) Active confirm ed Problem Sciatica (44769513) Right sided sciatica (M54.31) Active confirmed Problem Adult health examination (489106933) Healthcare maintenance (Z00.00) Active confirmed Problem Retinal hemorrhage (68491851) Retinal hemorrhage of left eye (H35.62) Active confirmed Problem Tobacco user (332205122) Nicotine dependence with current use (F17.200) Active confirmed Problem Type II diabetes mellitus without complication (365411385) New onset type 2 diabetes mellitus (E11.9) Active confirmed Vital Signs Heart Rate 104 /min 04/07/2025 Temperature 97.5 degrees Fahrenheit 04/07/2025 Blood pressure diastolic 62 mm Hg 04/07/2025 Height 5 ft 5 in in 04/07/2025 Blood pressure systolic 124 mm Hg 04/07/2025 Weight 154 lbs 04/07/2025 BMI 25.62 kg/m2 04/07/2025 Encounters Encounter Location Date Provider Diagnosis [facility] [address] [place] [address] 09/26/2024 Provider Migration [facility] [address] [place] [address] 05/13/2024 Brien Besson Hypothyroidism (acquired) E03.9 ; Hypertension, essential I10 ; Nicotine dependence, cigarettes, uncomplicated F17.210 ; Chronic fatigue R53.82 ; Healthcare maintenance Z00.00 ; Vitamin B12 deficiency E53.8 and Immunization(s) administered Z23 [facility] [address] [place] [address] 08/05/2024 Brien Besson Hypothyroidism (acquired) E03.9 and Tremor R25.1 [facility] [address] [place] [address] 10/28/2024 Brien Besson Hypothyroidism (acquired) E03.9 ; Panlobular emphysema J43.1 ; Hyperlipemia, idiopathic familial E78.5 ; Hypertension, essential I10 ; Type 2 diabetes mellitus with other specified complication E11.69 ; COPD with exacerbation J44.1 ; Vitamin B12 deficiency E53.8 and Encounter for immunization Z23 [facility] [address] [place] [address] 02/03/2025 Brien Besson Dizziness R42 and Orthostatic hypotension I95.1 [facility] [address] [place] [address] 02/10/2025 Brien Besson Adjustment disorder with depressed mood F43.21 ; Orthostatic hypotension I95.1 ; Prediabetes R73.03 and Postural dizziness R42 [facility] [address] [place] [address] 02/15/2025 Brien Besson Immunization(s) administered Z23 ; COPD with exacerbation J44.1 ; Adjustment disorder with depressed mood F43.21 ; Hypertension, essential I10 and Dizziness R42 [facility] [address] [place] [address] 03/17/2025 Brien Besson Vertigo R42 ; Hypothyroidism (acquired) E03.9 ; Hyperlipemia, idiopathic familial E78.5 and Hypertension, essential I10 [facility] [address] [place] [address] 04/07/2025 Brien Besson Dizziness R42 ; Atax ia R27.0 and Diplopia H53.2 [facility] [address] [place] [address] 05/14/2024 Brien Besson [facility] [address] [place] [address] 08/07/2024 Brien Besson [facility] [address] [place] [address] 01/01/2025 Brien Besson Breast cancer screening by mammogram Z12.31 [facility] [address] [place] [address] 01/12/2025 Brien Besson [facility] [address] [place] [address] 04/26/2025 Brien Besson Postural dizziness R 42 [facility] [address] [place] [address] 01/07/2025 Brien Besson [facility] [address] [facility] [address] [place] [address] 01/07/2025 Brien Besson Breast cancer screening by mammogram Z12.31 Assessments Encounter Date Diagnosis (ICD Code) Assessment Notes Treatment Notes Treatment Clinical Notes Section Notes 05/13/2024 Hypothyroidism (acquired) (ICD-10 - E03.9) - Clinically euthyroid. On stable dose of Synthroid. No changes in symptoms but still reports ongoing fatigue therefore will not decrease dose based on recent TSH in 12/2023. - discussed with patient, will repeat labs, thyroid panel today 05/13/2024 Hypertension, essential (ICD-10 - I10) Good blood pressure control. No changes in plan monitoring renal function on [facility] today 08/05/2024 Hypothyroidism (acquired) (ICD-10 - E03.9) [...] look at other electrolytes for potential causes. 01/01/2025 Breast cancer screening by mammogram (ICD-10 [...] and will follow up in a month. 02/10/2025 Adjustment disorder with depressed mood (ICD-10 [...] although patient has moist mucous membranes. 10/28/2024 Hypothyroidism (acquired) (ICD-10 - E03.9) Clinically appears euthyroid. Will check labs today. I will review labs personally. 10/28/2024 Panlobular emphysema (ICD-10 - J43.1) Discussed smoking cessation, compliant with Trelegy 02/15/2025 Immunization(s) administered (ICD-10 - Z23) 03/17/2025 Hypothyroidism (acquired) (ICD-10 - E03.9) Check thyroid function. Has previously been on stable dose of levothyroxine. 02/15/2025 COPD with exacerbation (ICD-10 - J44.1) Refill albuterol inhaler to use PRN 03/17/2025 Vertigo (ICD-10 - R42) Trial of thiazide diuretics to help with vertigo. Short-term follow-up. High risk for carotid occlusion given her history of smoking hyperlipidemia, check carotid Dopplers. All reviewed personally 04/07/2025 Dizziness (ICD-10 - R42) 04/07/2025 Ataxia (ICD-10 - R27.0) 04/26/2025 Postural dizziness (ICD-10 - R42) 04/07/2025 Diplopia (ICD-10 - H53.2) 03/17/2025 Hyperlipemia, idiopathic familial (ICD-10 - E78.5) Checkup labs and lipid profile 02/15/2025 Adjustment disorder with depressed mood (ICD-10 - F43.21) mood well maintanined on paxil. Continue current regimen 10/28/2024 Hyperlipemia, idiopathic familial (ICD-10 - E78.5) 02/10/2025 Prediabetes (ICD-10 - R73.03) Patient's last A1c was 5.8. She endorses that she is only eating 1 meal a day. Will D/c metformin in light of dizziness with possible hypoglycemia + volume loss in stool. 05/13/2024 Nicotine dependence, cigarettes, uncomplicated (ICD-10 - F17.210) - Has quit smoking. Remains on Wellbutrin. - Discussed ongoing strategies to remain stopped and congratulated patient - continue wellbutrin as below 05/13/2024 Chronic fatigue (ICD-10 - R53.82) - [...] levels on labs at next follow up 02/10/2025 Postural dizziness (ICD-10 - R42) Patient [...] visit. 10/28/2024 Hypertension, essential (ICD-10 - I10) 03/17/2025 Hypertension, essential (ICD-10 - I10) Blood pressure is not elevated, will see back in 4 weeks and watch carefully with the addition of diuretic therapy 02/15/2025 Hypertension, essential (ICD-10 - I10) Pt [...] adjustment today, will f/u in 2 wks 05/13/2024 Healthcare maintenance (ICD-10 - Z00.00) - Mammogram and LDCT chest UTD, both negative in 12/2023, repeat due in 1 year - last colonoscopy 2016, has history of tubular adenoma and hyperplastic [...] with other specified complication (ICD-10 - E11.69) 05/13/2024 Vitamin B12 deficiency (ICD-10 - E53.8) [...] arranged. 02/15/2025 Other reevaluate in 2 wks 04/07/2025 Other Reviewed patient's dizziness symptoms in detail. Seems to be a mixed phenomenon with some vestibular issues as well as perhaps central dizziness. Does not seem to be orthostatic. Blood pressure under good control, recent labs reviewed. Check MRI scan given structural risks and neurology referral. Plan Of Treatment Pending Test Test Name [...] Hydroxy 03/02/2021 M-Vitamin D 25 Hydroxy 03/23/2020 Event recorder 14 day 04/26/2025 Next Appt Details Provider Name:Brien Rojas, 05/05/2025 11:15:00 AM, [address] [facility], [address], [place], [address], Insurance Providers Payer Name Payer Address Payer Phone Subscriber Number Group Number Insured Name Patient Relationship to Insured Coverage Start Date Coverage End Date [place] [address] [place] [address] [id number] Indira Al Self - patient is the insured [facility] [address] [place] [address] [id number] Indira Al Self - patient is the insured [employer] [address] [place] [address] [address] [place] [address] [phone] ACL Indira Al Self - patient is the insured Medications [...] diabetes Normal LDCT 02/12 and normal 12/2023 Normal carotid Dopplers 04/17 and normal brain mri 04/17 Surgical History Surgery Date(Month/Year) vaginal partial hysterectomy 01/1985 left breast bx-benign 1990 D&C 11/1984 inj in lt eye for macular degeneration 0 11/25/2018 inj in lt eye for macular degeneration 0 06/2019 colonoscopy 05/24/2021 Hospitalization History Reason Date(Month/Year) reaction 03/2021 hysterectomy 1984
== END 2025-04-27 23:59 | disposition home or self-care (01) ==
LOC: RT 16:05
PROVIDERS: PCP Internal Medicine Adolescent Medicine; Visit Provider Internal Medicine Adolescent Medicine
DX: I49.1 Atrial premature depolarization (principal); I47.19 Other supraventricular tachycardia; I49.3 Ventricular premature depolarization; I47.29 Other ventricular tachycardia
CPT/HCPCS: 93270